=== PATIENT | male | born 1955 | race Caucasian/White ===

== ENCOUNTER 2019-02-05 06:18 | Inpatient (IN) | payer OTHER ==
[2019-02-02 16:01] VITALS: BMI 30.2
[2019-02-05] MEDS ORDERED: HEPARIN NA (PORCINE) 5,000 UNITS/ML 1ML VIAL ONE (07:07)
[2019-02-05] MEDS ORDERED: BENZOIN TINCTURE SWABSTICK TP ONE ×2 (07:07→11:28)
[2019-02-05] MEDS ORDERED: THROMBIN (BOVINE) 5,000 UNIT VIAL TP ONE ×3 (07:08→10:05)
[2019-02-05] MEDS ORDERED: BUPIVACAINE HCL/PF 0.5% (5 MG/ML) 30 ML VIAL IJ ONE (07:49)
[2019-02-05] MEDS ORDERED: DEXAMETHASONE SOD PHOSPHATE/PF 10 MG/ML SDV ONE (07:49)
[2019-02-05] MEDS ORDERED: MIDAZOLAM HCL 2 MG/2 ML SINGLE DOSE VIAL ONE ×4 (07:50→12:58)
[2019-02-05] MEDS ORDERED: SUCCINYLCHOLINE CHLORIDE 200 MG/10 ML SYRINGE ONE (07:55)
[2019-02-05] MEDS ORDERED: VANCOMYCIN 1,000 MG VIAL (RESTRICTED TO ID ONLY) ONE ×2 (07:55→08:30)
[2019-02-05] MEDS ORDERED: ePHEDrine SULFATE 50 MG/1 ML AMPULE ONE (07:55)
[2019-02-05] MEDS ORDERED: ROCURONIUM BROMIDE 50 MG/5 ML SYRINGE ONE (07:55)
[2019-02-05] MEDS ORDERED: ceFAZolin SODIUM 1 GM VIAL ONE ×4 (07:55→19:54)
[2019-02-05] MEDS ORDERED: fentaNYL CITRATE 250 MCG/5 ML VIAL ONE ×3 (07:55→10:45)
[2019-02-05] MEDS ORDERED: PROPOFOL 20 ML ONE ×15 (07:55→10:41)
[2019-02-05] MEDS ORDERED: VANCOMYCIN 1,000 MG VIAL (RESTRICTED TO ID ONLY) IVPB ONE (08:15)
[2019-02-05] MEDS ORDERED: ceFAZolin SODIUM 1 GM VIAL IVPB ONE (08:30)
[2019-02-05] MEDS ORDERED: HYDROCORTISONE SOD SUCCINATE 2 ML ONE ×2 (08:30→08:34)
[2019-02-05] MEDS ORDERED: KETAMINE HCL 200 MG/20 ML VIAL ONE ×2 (10:03→10:43)
--- NOTE | 2019-02-05 11:47 | PN ---
Progress Note (short form) - Note Progress Note: 63M s/p C3-C4 anterior cervical discectomy and instrumented fusion POD #0. -Admit to ICU x 24 hrs. for airway observation; OK to discharge home or downgrade to floor & discharge home 02/06/2019 if airway stable. -Maintain head of bed 30-45 degrees. -Pain medication: per anaesthesia team; oral meds (oxycodone preferred), no TEACHING FELLOW ; NO NSAID's. -DVT PPx: -Mechanical only: CASIMIRO's, SCD's. -Post-op Ancef x 3 doses. -f/u AM labs. -Incentive spirometry. -PT/OT/Rehab, OOB. -WBAT B/L UE & LE. -f/u TOV (8 hours max). -Keep dressing clean & dry. -No heavy lifting (>5 lbs), bending or twisting x 6 months post op. -Start with soft diet; advance diet as tolerated. -B/L UE & LE NV checks. -Care per ICU & primary medical hospitalist teams. -Discharge planning: f/u [facility] [place] office 02/15/2019; call for appointment; . Srinivasa Baer MD (Orthopaedic Surgery).
[2019-02-05] MEDS ORDERED: ONDANSETRON 4 MG/2 ML VIAL IVPUSH PRN (11:51)
--- NOTE | 2019-02-05 11:51 | OP ---
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 SEVERITY OF ILLNESS: 4. Operation: C3-C4 ACDF Implants: Cage: RTI Tetrafuse Fortilink 11mm [id number] cage. Plate: Precision Spine Slimplicity 18mm. Screws: 4 x 4.0x12mm Post-Operative Diagnosis: Same as Pre-op Surgeon: Srinivasa Baer Lead Sewage Plant Operator: Jeffrey Baer Anesthesiologist/HAND INSPECTOR: Melissa Craven Anesthesia: General Specimens Removed: C3-C4 Disc Estimated Blood Loss (mls): 30 Fluid Volume Replaced (mls): 1,000 (Crystalloid) Operative Report Dictated: Yes
[2019-02-05] MEDS ORDERED: ALBUTEROL SO4 8 GM HFA INHALER IH PRN (12:00)
[2019-02-05] MEDS ORDERED: LACTATED RINGERS SOLUTION 1,000 ML IV SCH (12:00)
--- NOTE | 2019-02-05 12:28 | OP ---
DATE OF OPERATION: DATE OF DICTATION: 02/05/2019 SURGEON: Srinivasa Baer MD BUSINESS PROCESS ASSOCIATE: Jeffrey Baer MD PREOPERATIVE DIAGNOSIS: C3-4 disk prolapse with stenosis and cervical spondylogenic myelopathy. POSTOPERATIVE DIAGNOSIS: C3-4 disk prolapse with stenosis and cervical spondylogenic myelopathy. OPERATION PERFORMED: 1. C3-4 diskectomy. 2. Partial corpectomy C3 and partial corpectomy C4. 3. Insertion of cage C3-4. 4. Anterior arthrodesis C3-4. 5. Anterior plating C3-4. ANESTHESIA: General. ANTIBIOTICS GIVEN: 2 g Kefzol, 1 g vancomycin preoperative; 10 mg Decadron with a loading dose of steroid for his COPD. DESCRIPTION OF PROCEDURE: Patient correctly identified. Brought to the operating room. Cervical spine was prepped, draped in the routine manner with Betadine scrub solution, wiped off with alcohol, DuraPrep applied. A window drape applied. The preoperative motor evoked potentials as well as SSEP readings were taken. Once we were satisfied with the readings, which revealed poor numbers revealed in his lower extremities, place the patient in a neck extended position by placing a longitudinal bolster behind his scapulae. This gave excellent extension of his neck. Appropriate cleansing of the tissue combined with this new extension position brought about no change in the neuromonitoring findings. Imaging was available for intraoperative evaluation. Time-out was called. The indications for this operation were simply for C3-4, and one could easily make a case for C6-7 and C7-T1 to be attempted at the same time; however, because of his chronic obstructive airway disease and significant myelopathy, we elected to simply do the C3-4 level and at a later date we would do on the contralateral side of the approach to the neck, this one being on the right, the next one will be on the left to attend to the C5, C6-7, and C7-T1 levels, that is, if necessary. There is free CSF fluid around the cord at these 2 lateral levels. At the C3-4 level, there is complete blockage of the canal. Using a light microscope, the incision was made through an oblique incision proximal to the cricothyroid interval. This gave easily access to platysma, which was transected and then longitudinally the investing layer of fascia was opened to expose the plane between the viscera and vessels. With digital palpation, this plane was developed. The longus coli readily identified and dissected using unipolar Bovie off the C3-4 disk. The C3-4 disk was marked with an appropriate marker, that is, an 18-gauge needle and verified with lateral fluoroscopic x-ray. Once this had been performed, the annulus was transected off the bone and then the entire disk and fragmented disk scooped out of the disk space right down to the level of the posterior longitudinal ligament. Using a rough juan Midas Titi bur, the space was opened to receive a size 10 cage. This was a liberal opening of the interspace. [place] pins had been placed in the body of C3 and C4, distracted so that the actual C3-4 space was readily identified. Once the burring had been completed, we were right down to the actual theca itself. Kerrison enabled trimming of the posterior longitudinal ligament that were looking purely at the bulging theca itself. A size 10 Fortilink cage was inserted. This was filled with Ossio fill bone mineral matrix. A size 18 Precision cage was then inserted. Solid fixation achieved in C3 and C4. Lateral fluoroscopic x-ray and AP fluoroscopic x-ray revealed excellent positioning of the cages, plates. In order to facilitate the entire rectangular configuration, liberal partial corpectomies of C3 and C4 were performed this utilizing a combination of the bur as well as Kerrison upcuts. No complications. Patient maintains blood pressure and oxygen saturations well. The murphy will be the postoperative course because of his poor lung compliance and COPD and, hence, the need to keep the surgery as small as possible and attend to other areas in a similar way at a later date. MD ASHLEY Barajas/[id number]
[2019-02-05] MEDS ORDERED: ACETAMINOPHEN INJECTION 100 ML IVPB ONE ×2 (13:16→19:54)
[2019-02-05] MEDS ORDERED: ACETAMINOPHEN 1000 MG/100 ML VIAL (NON FORMULARY) IVPB ONE (13:30)
[2019-02-05] MEDS: ACETAMINOPHEN 1000 MG/100 ML VIAL (NON FORMULARY) IVPB SCH ×2 (13:30→20:33)
[2019-02-05] MEDS: CEFAZOLIN 2 GM/D5W 2 GM/50 ML ML IVPB SCH ×2 (13:54→19:59)
[2019-02-05] MEDS ORDERED: ceFAZolin 2 GRAM PREMIX BAG IVPB SCH (14:00)
[2019-02-05] MEDS ORDERED: MIDAZOLAM HCL 2 MG/2 ML SINGLE DOSE VIAL IVPUSH ONE (15:18)
--- NOTE | 2019-02-05 17:25 | HP ---
CHIEF COMPLAINT: left Arm weakness, unstable gait PCP: Dr Stock-[facility] HISTORY OF PRESENT ILLNESS: Pt is a pleasant 63 y/o M with a significant past medical history of spinal stenosis, HLD, COPD, CKD stage 3, Tourette's syndrome, diverticulosis, and BPH who presented to [facility] for spinal surgery. Pt endorses that he has been suffering from left upper extremity weakness as well as an unstable gait for a few years. Pt states he also feels a sharp sensation described as that of an "ice-pick" in both of his feet in addition to his left arm. Pt endorses taking oxycodone and gabapentin to mitigate his pain. Pt states he did not undergo surgery earlier due to conflicting medical opinions. Denies chest pain, headache , nausea/vomiting, bowel or bladder changes. PMH- as above SocialHx- Smokes 1/2 PPDx50 years, Denies alcohol or illicit drug use SurgHx- Previous elbow surgery, benign tumor removal of tongue, 2 hernia surgeries FamHx- Father NC, Mother CHF, DM NKDA HOME MEDICATIONS: Home Medications Medication Instructions Recorded Albuterol Sulfate Inhaler - 1 puff IH PRN 02/02/19 [Ventolin Hfa Inhaler -] Atorvastatin Ca [Lipitor] 10 mg PO HS 02/02/19 Fluticasone/Umeclidin/Vilanter 1 each IH DAILY 02/02/19 [Trelegy Ellipta 100-62.5-25] Oxycodone HCl 15 mg PO Q4H PRN 02/02/19 REVIEW OF SYSTEMS CONSTITUTIONAL: Absent: fever, chills, diaphoresis, generalized weakness, malaise, loss of appetite, weight change HEENT: Absent: rhinorrhea, nasal congestion, throat pain, throat swelling, difficulty swallowing, mouth swelling, ear pain, eye pain, visual changes CARDIOVASCULAR: Absent: chest pain, syncope, palpitations, irregular heart rate, lightheadedness , peripheral edema RESPIRATORY: PRESENT dyspnea with exertion GASTROINTESTINAL: Absent: abdominal pain, abdominal distension, nausea, vomiting, diarrhea, constipation, melena, hematochezia GENITOURINARY: Absent: dysuria, frequency, urgency, hesitancy, hematuria, flank pain, genital pain MUSCULOSKELETAL: Absent: myalgia, arthralgia, joint swelling, back pain, neck pain SKIN: Absent: rash, itching, pallor HEMATOLOGIC/IMMUNOLOGIC: Absent: easy bleeding, easy bruising, lymphadenopathy, frequent infections ENDOCRINE: Absent: unexplained weight gain, unexplained weight loss, heat intolerance, cold intolerance NEUROLOGIC: PRESENT focal weakness or paresthesias, unsteady gait PSYCHIATRIC: Absent: anxiety, depression, suicidal or homicidal ideation, hallucinations. PHYSICAL EXAMINATION Vital Signs - 24 hr 02/05/19 02/05/19 02/05/19 07:18 07:22 12:02 Temperature 98.2 F 97.8 F Pulse Rate 82 92 H Respiratory 20 19 Rate Blood Pressure 116/53 L 151/111 H O2 Sat by Pulse 94 L 100 Oximetry (%) 02/05/19 02/05/19 02/05/19 12:15 12:30 12:45 Temperature Pulse Rate 92 H 92 H 90 Respiratory 20 14 12 Rate Blood Pressure 167/96 162/105 H 166/94 O2 Sat by Pulse 94 L 96 92 L Oximetry (%) 02/05/19 02/05/19 02/05/19 13:00 13:15 13:30 Temperature Pulse Rate 88 90 92 H Respiratory 14 14 12 Rate Blood Pressure 149/100 149/96 148/88 O2 Sat by Pulse 94 L 98 97 Oximetry (%) 02/05/19 02/05/19 02/05/19 13:45 14:00 14:15 Temperature Pulse Rate 90 88 85 Respiratory 12 14 14 Rate Blood Pressure 149/88 152/98 120/88 O2 Sat by Pulse 97 98 98 Oximetry (%) 02/05/19 02/05/19 02/05/19 14:30 15:00 15:30 Temperature Pulse Rate 90 84 90 Respiratory 16 14 16 Rate Blood Pressure 144/90 146/86 150/80 O2 Sat by Pulse 95 95 97 Oximetry (%) GENERAL: NAD AAOX3 HEAD: Normal with no signs of trauma. EYES: EOMI Sclera Clear. EARS, NOSE, THROAT: MMM. NECK: Supple LUNGS: CTA b/l HEART: RRR S1S2 ABDOMEN: Soft,NDNT. UPPER EXTREMITIES: No CCE LOWER EXTREMITIES: No CCE. NEUROLOGICAL: Cranial nerves II-XII intact. SILT throughout. Strength 4/5 LUE. Biceps/Triceps 4/5. RUE 5/5. Lower extremities 5/5. Dorsiflexion/plantar flexion 5/5 bilaterally. PSYCHIATRIC: Cooperative. Good eye contact. Appropriate mood and affect. SKIN: Warm, dry, normal turgor, no rashes or lesions noted, normal capillary refill. Laboratory Results - last 24 hr 02/05/19 02/05/19 06:29 07:45 Blood Type A POSITIVE A POSITIVE Antibody Screen Negative ASSESSMENT/PLAN: Pt is a pleasant 63 y/o M with a significant past medical history of spinal stenosis, HLD, COPD, CKD stage 3, Tourette's syndrome, diverticulosis, and BPH who presented to [facility] for spinal surgery. 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 -Incentive Pan -Ancef x 3 doses -PT/OT -Advance diet as tolerated -Mechanical dvt ppx only -Oxycodone for analgesia. Avoid NSAIDS #HLD -Continue Atorvastatin 10 mg #COPD -Trilegy not formularly at hospital. Pharmacy consulted. Will substitute Anoro along with Asmanex. -Ventolin 1 Puff Q4H PRN #Tourette's syndrome/Anxiety -Paxil listed as part of medication in physical chart. Pt states no longer taking paxil due to side effects -Continue Klonopin 1 tab HS #FEN -No Standing Fluids -Monitor Electrolytes -Soft Diet #DVT ppx: SCDs #Dispo: -ICU. Possible d/c tomorrow. Visit type - Emergency Visit Emergency Visit: No - New Patient This patient is new to me today: Yes Date on this admission: 02/05/19 - Critical Care Critical Care patient: No ATTENDING PHYSICIAN STATEMENT I saw and evaluated the patient. I reviewed the resident's note and discussed the case with the resident. I agree with the resident's findings and plan as documented. SUBJECTIVE: OBJECTIVE: ASSESSMENT AND PLAN:
--- NOTE | 2019-02-05 18:16 | PN ---
Teaching Attending Note Name of Resident: Edson Kilpatrick ATTENDING PHYSICIAN STATEMENT I saw and evaluated the patient. I reviewed the resident's note and discussed the case with the resident. I agree with the resident's findings and plan as documented. SUBJECTIVE: CC: s/p cervical sx HPI : Tadeo 63 y/o man with h/o C3-4 disk herniation with resultant spinal stenosis, HL, COPD, and nicotine dependence who presented fro his C spine surgery. He is now in PACU after his procedure. His pre-Sx symptoms were weakness in MAL and gait abnormalities with numbness and tingling in his legs . now he feels some sore throat, but denies SOB or weakness, or CP . has no diarrhea or abd pain. smoked until last night . OBJECTIVE: NAD, awake, alert, cooperative and pleasant HEENT: MMM, oropharynx with bruises. anterior neck dressing. no facial droop. CV: RRR. Lungs: CTAB. Abd: soft, obese, NT, ND , NL BS Ext : No edema or erythema on LE or upper extremities Neuro: EOMI, no facial droop. nl facial sensation , tongue and uvula at mid line. strength RUE: shoulder shrug and abduction 5/5 , triceps and biceps 5/5. 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 nl hand opener verifier [employer]er [employer]. RLE: hip flexion 4/5. knee flexion and extension 5/5 . ankle dorsiflexion and plantar flexion 5/5 LLE: hip flexion 4/5. knee flexion and extension 5/5 . ankle dorsiflexion and plantar flexion 5/5 reflexes 2+ knee jerk b/l. biceps:2+ on R , 1+_ on L ASSESSMENT AND PLAN: Tadeo 63 y/o man with h/o C3-4 disk herniation with resultant spinal stenosis , HL, COPD, and nicotine dependence who presented fro his C spine surgery. He is now in PACU after his procedure. 1- s/p C3--4 discectomy and fusion : doing well . eating dinner - pain control with oxycodone - diet - out of bed with PT - SCDs - monitor neuro exam 2- h/o COPD: SAt O2 89-94% on RA. - monitor - Nebs - Inhalers - counseled about smoking 3- H/o HLP: - cont lipitor dispo : possible dc tomorrow
[2019-02-05] MEDS ORDERED: oxyCODONE HCL 5 MG TABLET ONE (18:19)
[2019-02-05] MEDS: oxyCODONE HCL 5 MG TABLET PO PRN (18:22)
--- NOTE | 2019-02-05 21:27 | CONSULT ---
Consultation: REQUESTING PROVIDER: CONSULT REQUEST: We have been asked to medically evaluate this patient for post- operative care. HISTORY OF PRESENT ILLNESS: 63yo smoking M with PMH COPD, HLD, hernia repairs, presenting s/p c3-c4 anterior cervical decompression with instrumentation today. Patient with adequate pain control, s/p 200 fentynl, ofirimev x2, 2g anceph x2, vancomycin, PO oxycodone at 6:20PM. Patient requesting his home Klonapin for sleep, slept earlier following versed dose. Passed his trial of void while in the PACU. Ate a full dinner and drank water. Patient without nausea, vomiting, pain, CP, SOB. Endorses mild throat tenderness. REVIEW OF SYSTEMS: CONSTITUTIONAL: Absent: fever, chills, diaphoresis, generalized weakness, malaise, loss of appetite, weight change HEENT: Absent: rhinorrhea, nasal congestion, throat pain, throat swelling, difficulty swallowing, mouth swelling, ear pain, eye pain, visual changes CARDIOVASCULAR: Absent: chest pain, syncope, palpitations, irregular heart rate, lightheadedness , peripheral edema RESPIRATORY: Absent: cough, shortness of breath, dyspnea with exertion, orthopnea, wheezing, stridor, hemoptysis GASTROINTESTINAL: Absent: abdominal pain, abdominal distension, nausea, vomiting, diarrhea, constipation, melena, hematochezia GENITOURINARY: Absent: dysuria, frequency, urgency, hesitancy, hematuria, flank pain, genital pain MUSCULOSKELETAL: Absent: myalgia, arthralgia, joint swelling, back pain, neck pain SKIN: Absent: rash, itching, pallor HEMATOLOGIC/IMMUNOLOGIC: Absent: easy bleeding, easy bruising, lymphadenopathy, frequent infections ENDOCRINE: Absent: unexplained weight gain, unexplained weight loss, heat intolerance, cold intolerance NEUROLOGIC: Absent: headache, focal weakness or paresthesias, dizziness, unsteady gait, seizure, mental status changes, bladder or bowel incontinence PSYCHIATRIC: Absent: anxiety, depression, suicidal or homicidal ideation, hallucinations. PHYSICAL EXAMINATION Vital Signs - 24 hr 02/05/19 02/05/19 02/05/19 07:18 07:22 12:02 Temperature 98.2 F 97.8 F Pulse Rate 82 92 H Respiratory 20 19 Rate Blood Pressure 116/53 L 151/111 H O2 Sat by Pulse 94 L 100 Oximetry (%) 02/05/19 02/05/19 02/05/19 12:15 12:30 12:45 Temperature Pulse Rate 92 H 92 H 90 Respiratory 20 14 12 Rate Blood Pressure 167/96 162/105 H 166/94 O2 Sat by Pulse 94 L 96 92 L Oximetry (%) 02/05/19 02/05/19 02/05/19 13:00 13:15 13:30 Temperature Pulse Rate 88 90 92 H Respiratory 14 14 12 Rate Blood Pressure 149/100 149/96 148/88 O2 Sat by Pulse 94 L 98 97 Oximetry (%) 02/05/19 02/05/19 02/05/19 13:45 14:00 14:15 Temperature Pulse Rate 90 88 85 Respiratory 12 14 14 Rate Blood Pressure 149/88 152/98 120/88 O2 Sat by Pulse 97 98 98 Oximetry (%) 02/05/19 02/05/19 02/05/19 14:30 15:00 15:30 Temperature Pulse Rate 90 84 90 Respiratory 16 14 16 Rate Blood Pressure 144/90 146/86 150/80 O2 Sat by Pulse 95 95 97 Oximetry (%) 02/05/19 02/05/19 02/05/19 16:30 17:30 18:30 Temperature Pulse Rate 84 82 82 Respiratory 14 14 20 Rate Blood Pressure 137/93 148/96 164/90 O2 Sat by Pulse 99 99 98 Oximetry (%) 02/05/19 02/05/19 19:30 20:30 Temperature Pulse Rate 90 90 Respiratory 18 20 Rate Blood Pressure 155/97 152/90 O2 Sat by Pulse 96 98 Oximetry (%) GENERAL: Pleasant, awake, alert, and fully oriented, in no acute distress. HEAD: Normal with no signs of trauma. EYES: Pupils equal, round and reactive to light, extraocular movements intact, sclera anicteric, conjunctiva clear. No lid lag. EARS, NOSE, THROAT: Ears normal, nares patent, oropharynx clear without exudates. Moist mucous membranes. NECK: In cervical collar, dressing C/D/I LUNGS: Breath sounds equal, clear to auscultation bilaterally. No wheezes, and no crackles. No accessory muscle use. HEART: Regular rate and rhythm, normal S1 and S2 without murmur, rub or gallop. ABDOMEN: Soft, nontender, not distended, normoactive bowel sounds, no guarding, no rebound, no masses. No hepatomegaly or splenomegaly. MUSCULOSKELETAL: Normal range of motion at all joints. No bony deformities or tenderness. No CVA tenderness. UPPER EXTREMITIES: 2+ pulses, warm, well-perfused. No cyanosis. No clubbing. Cap refill <2 seconds. No peripheral edema. LOWER EXTREMITIES: 2+ pulses, warm, well-perfused. No calf tenderness. No peripheral edema. NEUROLOGICAL: Cranial nerves II-XII intact. Normal speech. Normal sensation and strength. PSYCHIATRIC: Cooperative. Good eye contact. Appropriate mood and affect. SKIN: Warm, dry, normal turgor, no rashes or lesions noted. Laboratory Results - last 24 hr 02/05/19 02/05/19 06:29 07:45 Blood Type A POSITIVE A POSITIVE Antibody Screen Negative Active Medications Generic Name Dose Route Start Last Admin Trade Name Freq PRN Reason Stop Dose Admin Acetaminophen 1,000 mg 02/05/19 15:30 02/05/19 20:33 Ofirmev Injection - IVPB 02/06/19 09:31 1,000 mg Q6H ROSA Administration Albuterol Sulfate 1 puff 02/05/19 12:00 Ventolin Hfa Inhaler - IH Q4H PRN SHORTNESS OF BREATH Atorvastatin Calcium 10 mg 02/05/19 22:00 Lipitor - PO HS ROSA Clonazepam 1 mg 02/05/19 22:00 Klonopin - PO HS ROSA Cefazolin Sodium/Dextrose 2 gm in 50 mls @ 100 mls/hr 02/05/19 14:00 19:59 Ancef 2 Gm Premixed Ivpb - IVPB 02/06/19 02:29 100 mls/hr Q6H ROSA Administration Mometasone Furoate 1 puff 02/06/19 22:00 Asmanex 220mcg - IH HS ROSA Ondansetron HCl 4 mg 02/05/19 11:51 Zofran Injection IVPUSH Q6H PRN NAUSEA AND/OR VOMITING Oxycodone HCl 15 mg 02/05/19 11:51 02/05/19 18:22 Roxicodone - PO 15 mg Q4H PRN Administration PAIN 7-10 Umeclidinium/Vilanterol 1 puff 02/06/19 10:00 Anoro Ellipta 62.5-25 Mcg Inh IH DAILY ROSA ASSESSMENT/PLAN: 63yo M smoker PMH COPD, HLD presenting s/p uncomplicated C3-C4 anterior cervical decompression with instrumentation. Progressing appropriately postoperatively, passed TOV, tolerating PO, pain well controlled. #Neuro - Pain control postoperatively is primary concern - q4h neuro checks - Maintain C-collar to avoid surgical site disruption - Maintain head of bed 30-45 degrees - PRN Tylenol for mild to moderate pain - PRN 15mg oxycodone q4hr for severe pain (7-10) - Home 1mg PO Klonopin qhs #CV - ABDOULAYE, baseline HLD - Continue home atorvastatin 10mg #Pulm - ABDOULAYE, baseline COPD, satting well on RA, home medication no on formulary , substitute below - Maintain O2 sat 89-94% - Incentive Spirometer - Continue Albuterol PRN - Continue Asmanex 220 mg qhs - Continue Anoro Ellipta 62.5-25mg daily #Renal - ABDOULAYE - Continue maintenance fluids - Encourage continued PO fluid intake - Trend and replete electrolytes as necessary #GI - ABDOULAYE - Trend CMP - Zofran PRN for nausea/vomiting - Soft diet, advance as tolerated #ID - ABDOULAYE - s/p 2x anceph, 1x vancomycin - Continue Anceph 2mg q6hr for one more dose (3 total) - Trend CBC, vitals #PPX - SCDs - OOB #Dispo - We will continue to follow the patient. Thank you for this consultative opportunity. Visit type - Emergency Visit Emergency Visit: No - New Patient This patient is new to me today: Yes Date on this admission: 02/05/19 - Critical Care Critical Care patient: Yes Total Critical Care Time (in minutes): 36 Critical Care Statement: The care of this patient involved high complexity decision making to prevent further life threatening deterioration of the patient 's condition and/or to evaluate & treat vital organ system(s) failure or risk of failure. ATTENDING PHYSICIAN STATEMENT I saw and evaluated the patient. I reviewed the resident's note and discussed the case with the resident. I agree with the resident's findings and plan as documented. SUBJECTIVE: OBJECTIVE: ASSESSMENT AND PLAN:
[2019-02-05] MEDS: clonazePAM 0.5 MG TABLET PO SCH ×3 (21:34→23:03)
[2019-02-05] MEDS ORDERED: ATORVASTATIN CA 10 MG TABLET (FP) PO SCH (22:00)
[2019-02-05] MEDS ORDERED: clonazePAM 0.5 MG TABLET PO SCH (22:00)
[2019-02-05] MEDS ORDERED: PATIENT'S OWN MEDICATION (NON-FORMULARY) (Clonazepam [Klonopin] 1 MG) PO SCH (22:00)
[2019-02-05] MEDS ORDERED: PANTOPRAZOLE 40 MG TABLET (FP) PO ONE (22:46)
[2019-02-06] MEDS ORDERED: FAMOTIDINE 20 MG TABLET PO ONE (00:03)
[2019-02-06] MEDS: CEFAZOLIN 2 GM/D5W 2 GM/50 ML ML IVPB SCH (01:10)
[2019-02-06] MEDS: ACETAMINOPHEN 1000 MG/100 ML VIAL (NON FORMULARY) IVPB SCH ×2 (04:00→10:34)
[2019-02-06] MEDS ORDERED: BENZOCAINE/MENTH/CETYLPYRD CL 1 EACH LOZENGE MM PRN (04:08)
[2019-02-06 07:46] LABS: BASO % 0.1 % (0-2.0); EOS % 0.1 % (0-4.5); HEMATOCRIT 38.3 % (35.4-49); HEMOGLOBIN 12.8 GM/dL (11.7-16.9); LYMPH % 6.3 % (8-40); MCH 30.5 pg (25.7-33.7); MCHC 33.3 g/dl (32.0-35.9); MEAN CELL VOLUME 91.6 fl (80-96); MEAN PLT VOLUME 8.4 fl (7.5-11.1); MONO % 7.4 % (3.8-10.2); NEUT % 86.1 % (42.8-82.8); PLATELET COUNT 267 K/MM3 (134-434); RBC 4.19 M/mm3 (4.00-5.60); RDW 13.1 % (11.9-15.9); WHITE BLOOD COUNT 16.9 K/mm3 (4.0-10.0)
[2019-02-06 08:30] LABS: BILIRUBIN,TOTAL 0.3 mg/dL (0.2-1); BLOOD UREA NITROGEN 17.4 mg/dL (7-18); CALCIUM 8.6 mg/dL (8.5-10.1); CREATININE 1.2 mg/dL (0.55-1.3); POTASSIUM 4.7 mmol/L (3.5-5.1); TOT PROT 6.4 g/dl (6.4-8.2)
[2019-02-06] MEDS ORDERED: UMECLIDINIUM/VILANTEROL (ANORO) 62.5/25 MCG INHALER IH SCH (10:00)
--- NOTE | 2019-02-06 10:36 | EKG ---
Test Reason : Blood Pressure : / mmHG Vent. Rate : 092 BPM Atrial Rate : 092 BPM P-R Int : 216 ms QRS Dur : 088 ms QT Int : 356 ms P-R-T Axes : 036 035 026 degrees QTc Int : 440 ms POOR DATA QUALITY, INTERPRETATION MAY BE ADVERSELY AFFECTED SINUS RHYTHM WITH 1ST DEGREE A-V BLOCK OTHERWISE NORMAL ECG Confirmed by MD DANIEL, CHAU ([id number]) on 02/06/2019 10:35:54 AM Referred By: Srinivasa Baer Confirmed By:CHAU SANCHEZ MD
--- NOTE | 2019-02-06 11:21 | PN ---
Teaching Attending Note Name of Resident: Brain Rodgers ATTENDING PHYSICIAN STATEMENT I saw and evaluated the patient. I reviewed the resident's note and discussed the case with the resident. I agree with the resident's findings and plan as documented. SUBJECTIVE: Patient seen and examined in the ICU. Feels overall better. Some post-op pain but improving. No CP or SOB. Intake & Output 02/03/19 02/04/19 02/05/19 02/06/19 23:59 23:59 23:59 23:59 Intake Total 2600 100 Output Total 2080 2000 Balance 520 -1900 Last Vital Signs Temp Pulse Resp BP Pulse Ox 98.4 F 73 17 132/93 100 02/06/19 06:00 02/06/19 08:00 02/06/19 06:00 02/06/19 08:00 02/06/19 09:00 Active Medications Albuterol Sulfate (Ventolin Hfa Inhaler -) 1 puff IH Q4H PRN PRN Reason: SHORTNESS OF BREATH Atorvastatin Calcium (Lipitor -) 10 mg PO HS [facility] Last Admin: 02/05/19 21:34 Dose: 10 mg Benzocaine/Menthol (Cepacol Lozenge -) 1 each MM PRN PRN PRN Reason: SORE THROAT Last Admin: 02/06/19 04:24 Dose: 1 each Clonazepam (Klonopin -) 1 mg PO HS [facility] Last Admin: 02/05/19 23:03 Dose: 0.5 mg Mometasone Furoate (Asmanex 220mcg -) 1 puff IH HS [facility] Ondansetron HCl (Zofran Injection) 4 mg IVPUSH Q6H PRN PRN Reason: NAUSEA AND/OR VOMITING Last Admin: 02/05/19 23:31 Dose: 4 mg Oxycodone HCl (Roxicodone -) 15 mg PO Q4H PRN PRN Reason: PAIN 7-10 Last Admin: 02/05/19 18:22 Dose: 15 mg Umeclidinium/Vilanterol (Anoro Ellipta 62.5-25 Mcg Inh) 1 puff IH DAILY [facility] Last Admin: 02/06/19 10:33 Dose: 1 puff GENERAL: Awake, alert, and oriented, in no acute distress. HEAD: Normal with no signs of trauma. EYES: sclera anicteric, conjunctiva clear. No lid lag. EARS, NOSE, THROAT: Ears normal, nares patent, oropharynx clear without exudates. Moist mucous membranes. NECK: dressing C/D/I LUNGS: Breath sounds equal, clear to auscultation bilaterally. No wheezes, and no crackles. No accessory muscle use. HEART: Regular rate and rhythm, normal S1 and S2 without murmur, rub or gallop. ABDOMEN: Soft, nontender, not distended, normoactive bowel sounds, no guarding, no rebound, no masses. No hepatomegaly or splenomegaly. MUSCULOSKELETAL: Normal range of motion at all joints. No bony deformities or tenderness. No CVA tenderness. UPPER EXTREMITIES: 2+ pulses, warm, well-perfused. No cyanosis. No clubbing. Cap refill <2 seconds. No peripheral edema. LOWER EXTREMITIES: 2+ pulses, warm, well-perfused. No calf tenderness. No peripheral edema. NEUROLOGICAL: Non-focal PSYCHIATRIC: Cooperative. Good eye contact. Appropriate mood and affect. SKIN: Warm, dry, normal turgor, no rashes or lesions noted. Laboratory Results - last 24 hr 02/06/19 02/06/19 06:59 06:59 WBC 16.9 H RBC 4.19 Hgb 12.8 Hct 38.3 MCV 91.6 MCH 30.5 MCHC 33.3 RDW 13.1 Plt Count 267 MPV 8.4 Absolute Neuts (auto) 14.5 H Neutrophils % 86.1 H Lymphocytes % 6.3 L Monocytes % 7.4 Eosinophils % 0.1 Basophils % 0.1 Nucleated RBC % 0 Sodium 137 Potassium 4.7 Chloride 104 Carbon Dioxide 29 Anion Gap 4 L BUN 17.4 Creatinine 1.2 Est GFR (CKD-EPI)AfAm 73.11 Est GFR (CKD-EPI)NonAf 63.08 Random Glucose 125 H Calcium 8.6 Total Bilirubin 0.3 AST 17 ALT 20 Alkaline Phosphatase 84 Total Protein 6.4 Albumin 3.0 L ASSESSMENT/PLAN: POD #1: C3-C4 anterior cervical decompression with instrumentation COPD HLD Pain control Incentive Spirometry VTE prophylaxis DC planning Dr Watkins
--- NOTE | 2019-02-06 12:04 | PATH ---
Surgical Pathology Report Patient Name: KEVIN MENDOZA [facility]. Rec. 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 Specimen(s) Received DISC, C3-C4 Clinical History Cervical disc disorder C3-C4 Final Diagnosis DISC, C3-C4, DISCECTOMY: BENIGN INTERVERTEBRAL DISC TISSUE AND BONE. Electronically Signed Ursula Killian M.D. Gross Description Received in formalin labeled "C3-C4 disc," is a 4.5 x 4.0 x 0.4 cm aggregate of lerner fragments of fibrocartilaginous tissue. A medical billing representative portion is submitted in one cassette. DL/02/05/2019 saudi/02/05/2019
--- NOTE | 2019-02-06 12:26 | PN ---
Physical Exam: SUBJECTIVE: Patient seen and examined by the bedside. He has been eating solid food, passing gas and burping, but has not had a BM yet. Pain is under control. OBJECTIVE: Vital Signs Period Temp Pulse Resp BP Sys/[place]land Pulse Ox Last 24 Hr 98.3 F-98.9 F 67-92 12-21 115-166/67-105 92-100 GENERAL: AOx3 HEAD: Normal with no signs of trauma. EYES: PERRL, EOMI ENT: Ears, nares patent, oropharynx clear without exudates, moist mucous membranes. NECK: Dressing in place LUNGS: Clear B/L HEART: RRR, no murmur, rub or gallop. ABDOMEN: Soft, nontender, nondistended EXTREMITIES: 2+ pulses, warm, well-perfused, no edema. NEUROLOGICAL: Motor 5/5, sensations intact PSYCH: Normal mood, normal affect. SKIN: Warm, dry, normal turgor, no rashes or lesions noted Laboratory Results - last 24 hr 02/06/19 02/06/19 06:59 06:59 WBC 16.9 H RBC 4.19 Hgb 12.8 Hct 38.3 MCV 91.6 MCH 30.5 MCHC 33.3 RDW 13.1 Plt Count 267 MPV 8.4 Absolute Neuts (auto) 14.5 H Neutrophils % 86.1 H Lymphocytes % 6.3 L Monocytes % 7.4 Eosinophils % 0.1 Basophils % 0.1 Nucleated RBC % 0 Sodium 137 Potassium 4.7 Chloride 104 Carbon Dioxide 29 Anion Gap 4 L BUN 17.4 Creatinine 1.2 Est GFR (CKD-EPI)AfAm 73.11 Est GFR (CKD-EPI)NonAf 63.08 Random Glucose 125 H Calcium 8.6 Total Bilirubin 0.3 AST 17 ALT 20 Alkaline Phosphatase 84 Total Protein 6.4 Albumin 3.0 L Active Medications Generic Name Dose Route Start Last Admin Trade Name Freq PRN Reason Stop Dose Admin Albuterol Sulfate 1 puff 02/05/19 12:00 Ventolin Hfa Inhaler - IH Q4H PRN SHORTNESS OF BREATH Atorvastatin Calcium 10 mg 02/05/19 22:00 02/05/19 21:34 Lipitor - PO 10 mg HS [facility] Administration Benzocaine/Menthol 1 each 02/06/19 04:08 02/06/19 04:24 Cepacol Lozenge - MM 1 each PRN PRN Administration SORE THROAT Clonazepam 1 mg 02/05/19 22:00 02/05/19 23:03 Klonopin - PO 0.5 mg HS [facility] Administration Mometasone Furoate 1 puff 02/06/19 22:00 Asmanex 220mcg - IH HS [facility] Ondansetron HCl 4 mg 02/05/19 11:51 02/05/19 23:31 Zofran Injection IVPUSH 4 mg Q6H PRN Administration NAUSEA AND/OR VOMITING Oxycodone HCl 15 mg 02/05/19 11:51 02/05/19 18:22 Roxicodone - PO 15 mg Q4H PRN Administration PAIN 7-10 Umeclidinium/Vilanterol 1 puff 02/06/19 10:00 02/06/19 10:33 Anoro Ellipta 62.5-25 Mcg Inh IH 1 puff DAILY [facility] Administration ASSESSMENT/PLAN: 63M with PMH of COPD, HLD s/p C3-C4 anterior cervical decompression with instrumentation, POD #1. #Neuro - q4h neuro checks - Maintain C-collar to avoid surgical site disruption - Maintain head of bed 30-45 degrees - PRN Tylenol for mild to moderate pain - PRN 15mg oxycodone q4hr for severe pain (7-10) - Home 1mg PO Klonopin qhs #CV - Hx of HLD, continue home atorvastatin 10mg #Pulm - Hx of COPD, continue Albuterol PRN, Asmanex 220 mg qhs, Anoro Ellipta 62.5- 25mg daily - Maintain O2 sat 89-94% - Incentive Spirometer #GI - Trend CMP - Zofran PRN for nausea/vomiting #ID - s/p 2x anceph, 1x vancomycin - Continue Anceph 2mg q6hr for one more dose (3 total) - Trend CBC, vitals #PPX - SCDs #Dispo - Ready for D/C today ATTENDING PHYSICIAN STATEMENT I saw and evaluated the patient. I reviewed the resident's note and discussed the case with the resident. I agree with the resident's findings and plan as documented. SUBJECTIVE: OBJECTIVE: ASSESSMENT AND PLAN:
[2019-02-06] MEDS: oxyCODONE HCL 5 MG TABLET PO PRN (12:57)
--- NOTE | 2019-02-06 14:48 | PN ---
Teaching Attending Note Name of Resident: Fior Woodruff ATTENDING PHYSICIAN STATEMENT I saw and evaluated the patient. I reviewed the resident's note and discussed the case with the resident. I agree with the resident's findings and plan as documented. SUBJECTIVE: no fever or chills. No IRVIN, no pain in neck . sore throat. passed gas . swallowing good OBJECTIVE: NAD, awake, alert, cooperative and pleasant oropharynx with bruises but no edema CV: RRR. Lungs: CTAB. Abd: soft, obese, NT, ND , NL BS Ext : No edema or erythema on LE or upper extremities Neuro: EOMI, no facial droop. nl facial sensation , tongue and uvula at mid line. strength RUE: shoulder shrug and abduction 5/5 , triceps and biceps 5/5. 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 knee flexion and extension 5/5 . ankle dorsiflexion and plantar flexion 5/5 LLE: hip flexion 4/5. knee flexion and extension 5/5 . ankle dorsiflexion and plantar flexion 5/5 reflexes 2+ knee jerk b/l. biceps:1+ on R , 0 on L ASSESSMENT AND PLAN: Pleasant 63 y/o man with h/o C3-4 disk herniation with resultant spinal stenosis , HL, COPD, and nicotine dependence who presented fro his C spine surgery. He is now in PACU after his procedure. 1- s/p C3--4 discectomy and fusion : doing well. - pain control with oxycodone . he has it at home -collar 3-4 hour a day d/w Dr. Baer - dressing to remain dry x 1 week then can cahnge to dry dressing f/u with ortho 2- h/o COPD: cont inhalers at home 3- H/o HLP: - cont lipitor DC home
--- NOTE | 2019-02-06 15:06 | DS ---
Physical Exam: SUBJECTIVE: Patient seen and examined. S/p cervical spine surgery. Pt is doing well, no c/o or issues overnight. Pt afebrile, asymptomatic without any further problems. Pt reports passing gas and ambulating well. Denies f/c/n/v/d/sob/ chest pain/ numbness or tingling. OBJECTIVE: Vital Signs Period Temp Pulse Resp BP Sys/[place] Pulse Ox Last 24 Hr 98.3 F-98.9 F 67-91 14-21 115-164/67-100 96-100 PHYSICAL EXAM GENERAL: The patient is awake, alert, and fully oriented, in no acute distress. EYES: PERRL, extraocular movements intact, ENT: oropharynx clear without exudates, moist mucous membranes, Mild erythema in the back of the throat NECK: Supple, Range of motion limited due to surgical site. Surgery was done with an anterior approach. Dressing in place. LUNGS: Breath sounds equal, clear to auscultation bilaterally, no wheezes, no crackles, no accessory muscle use. HEART: Regular rate and rhythm, S1, S2 without murmur, rub or gallop. ABDOMEN: Soft, nontender, nondistended, normoactive bowel sounds, no guarding, no rebound, no hepatosplenomegaly, no masses. EXTREMITIES: 2+ pulses, warm, well-perfused, no edema. NEUROLOGICAL: Cranial nerves II through XII grossly intact. Strength 5/5 UE and LE, Sensation 5/5 UE and LE SKIN: Warm, dry, normal turgor, no rashes or lesions noted. LABS Laboratory Results - last 24 hr CBC,CMP WBC 16.9 K/mm3 (4.0-10.0) H 02/06/19 06:59 RBC 4.19 M/mm3 (4.00-5.60) 02/06/19 06:59 Hgb 12.8 GM/dL (11.7-16.9) 02/06/19 06:59 Hct 38.3 % (35.4-49) 02/06/19 06:59 MCV 91.6 fl (80-96) 02/06/19 06:59 MCH 30.5 pg (25.7-33.7) 02/06/19 06:59 MCHC 33.3 g/dl (32.0-35.9) 02/06/19 06:59 RDW 13.1 % (11.9-15.9) 02/06/19 06:59 Plt Count 267 K/MM3 (134-434) 02/06/19 06:59 MPV 8.4 fl (7.5-11.1) 02/06/19 06:59 Absolute Neuts (auto) 14.5 K/mm3 (1.5-8.0) H 02/06/19 06:59 Neutrophils % 86.1 % (42.8-82.8) H 02/06/19 06:59 Lymphocytes % 6.3 % (8-40) L 02/06/19 06:59 Monocytes % 7.4 % (3.8-10.2) 02/06/19 06:59 Eosinophils % 0.1 % (0-4.5) 02/06/19 06:59 Basophils % 0.1 % (0-2.0) 02/06/19 06:59 Nucleated RBC % 0 % (0-0) 02/06/19 06:59 Sodium 137 mmol/L (136-145) 02/06/19 06:59 Potassium 4.7 mmol/L (3.5-5.1) 02/06/19 06:59 Chloride 104 mmol/L (98-107) 02/06/19 06:59 Carbon Dioxide 29 mmol/L (21-32) 02/06/19 06:59 Anion Gap 4 MMOL/L (8-16) L 02/06/19 06:59 BUN 17.4 mg/dL (7-18) 02/06/19 06:59 Creatinine 1.2 mg/dL (0.55-1.3) 02/06/19 06:59 Est GFR (CKD-EPI)AfAm 73.11 02/06/19 06:59 Est GFR (CKD-EPI)NonAf 63.08 02/06/19 06:59 Random Glucose 125 mg/dL (74-106) H 02/06/19 06:59 Calcium 8.6 mg/dL (8.5-10.1) 02/06/19 06:59 Total Bilirubin 0.3 mg/dL (0.2-1) 02/06/19 06:59 AST 17 U/L (15-37) 02/06/19 06:59 ALT 20 U/L (13-61) 02/06/19 06:59 Alkaline Phosphatase 84 U/L (45-117) 02/06/19 06:59 Total Protein 6.4 g/dl (6.4-8.2) 02/06/19 06:59 Albumin 3.0 g/dl (3.4-5.0) L 02/06/19 06:59 Current Medications Albuterol Sulfate (Ventolin Hfa Inhaler -) 1 puff IH Q4H PRN PRN Reason: SHORTNESS OF BREATH Atorvastatin Calcium (Lipitor -) 10 mg PO HS [facility] Last Admin: 02/05/19 21:34 Dose: 10 mg Benzocaine/Menthol (Cepacol Lozenge -) 1 each MM PRN PRN PRN Reason: SORE THROAT Last Admin: 02/06/19 04:24 Dose: 1 each Clonazepam (Klonopin -) 1 mg PO HS [facility] Last Admin: 02/05/19 23:03 Dose: 0.5 mg Mometasone Furoate (Asmanex 220mcg -) 1 puff IH [facility] Ondansetron HCl (Zofran Injection) 4 mg IVPUSH Q6H PRN PRN Reason: NAUSEA AND/OR VOMITING Last Admin: 02/05/19 23:31 Dose: 4 mg Oxycodone HCl (Roxicodone -) 15 mg PO Q4H PRN PRN Reason: PAIN 7-10 Last Admin: 02/06/19 12:57 Dose: 15 mg Umeclidinium/Vilanterol (Anoro Ellipta 62.5-25 Mcg Inh) 1 puff IH DAILY [facility] Last Admin: 02/06/19 10:33 Dose: 1 puff Home Medications Medication Instructions Recorded Albuterol Sulfate Inhaler - 1 puff IH PRN 02/02/19 [Ventolin HFA Inhaler -] Atorvastatin Ca [Lipitor] 10 mg PO HS 02/02/19 Fluticasone/Umeclidin/Vilanter 1 each IH DAILY 02/02/19 [Trelegy Ellipta 100-62.5-25] Oxycodone HCl 15 mg PO Q4H PRN 02/02/19 Clonazepam [Klonopin] 1 mg PO HS 02/05/19 HOSPITAL COURSE: Date of Admission:02/05/19 63 y/o M, w/ pmh of spinal stenosis, HLD, COPD, CKD stage 3, Tourette's syndrome , diverticulosis, and BPH presented to the hospital for an elective spine surgery under the care of Dr. Baer. Pt underwent a C3-C4 anterior cervical discectomy and instrumented fusion and was POD1. Pt was monitored overnight in the ICU and had a stable overnight ICU course. Pt was given ancef 3 doses for ppx s/p surgery, mechanical DVT ppx, oxycodone for pain management and underwent PT exercise and clearance for discharge. Pt post op course was unremarkable, he passed gas, ambulated well and was discharged home on his home meds. EKG: sinus rhythm w/ 1st degree block S/p surgery C-spine X ray: c-spine reveals anterior fusion at c3-c4 w/ a disc space replacement. Straightening w/ degenerative changes and some vertebra wedging. there is right paraspinal and prevertebral soft tissue air. 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 Avoid NSAIDS #HLD -Continue Atorvastatin 10 mg #COPD -Trilegy not formularly at hospital. Pharmacy consulted. Will substitute Anoro along with Asmanex. -Ventolin 1 Puff Q4H PRN #Tourette's syndrome/Anxiety -Paxil listed as part of medication in physical chart. Pt states no longer taking paxil due to side effects -Continue Klonopin 1 tab HS Date of Discharge: 02/06/19 Minutes to complete discharge: 35 Discharge Summary Problems reviewed: Yes Reason For Visit: CERVICAL DISC DISORDER AT C6-C7 LEVEL WITH MYELOPA Condition: Improved - Instructions Diet, Activity, Other Instructions: You were admitted to the hospital for spine surgery Please follow up with Dr. Srinivasa Baer. call his office and make sure your appointment is scheduled ([phone]) please follow up with your PCP within one week If you experience pain in your neck, please take over the counter pain medications or the oxycodone that you take at home. Please keep the dressing dry for one week- use dry gauze to change the dressing Please keep the collar on for at least 4-5 hours a day consistently Return to the emergency room, if you experience any worsening of symptoms including unbearable pain, shortness of breath, chest pain, nausea, vomiting, numbness or tingling of your hands or feet, or any other symptoms. Referrals: Saad Stock MD [Non Staff, Medical] - 1 Week Srinivasa Baer MD [Staff Physician] - 1 Week Disposition: HOME - Home Medications Comprehensive Discharge Medication List: Ambulatory Orders Albuterol Sulfate Inhaler - [Ventolin HFA Inhaler -] 1 puff IH PRN 02/02/19 Atorvastatin Ca [Lipitor] 10 mg PO HS 02/02/19 Fluticasone/Umeclidin/Vilanter [Trelegy Ellipta 100-62.5-25] 1 each IH DAILY Oxycodone HCl 15 mg PO Q4H PRN 02/02/19 Clonazepam [Klonopin] 1 mg PO HS 02/05/19 This patient is new to me today: Yes Date on this admission: 02/06/19 Emergency Visit: Yes ED Registration Date: 02/05/19 Care time: The patient presented to the Emergency Department on the above date and was hospitalized for further evaluation of their emergent condition. Critical Care patient: No - Discharge Referral Referred to [facility] No ATTENDING PHYSICIAN STATEMENT I saw and evaluated the patient. I reviewed the resident's note and discussed the case with the resident. I agree with the resident's findings and plan as documented. SUBJECTIVE: OBJECTIVE: ASSESSMENT AND PLAN:
[2019-02-06 17:18] VITALS: BP 136/84; PULSE 74; TEMP 98.6
[2019-02-06] MEDS ORDERED: MOMETASONE FUROATE 220 MCG/IH INHALER IH SCH (22:00)
== END 2019-02-06 18:57 | disposition home or self-care (01) | DRG 472 ==
LOC: JSAMEDAYSX 06:18 → JICU 20:58
PROVIDERS: ADMIT Orthopaedic Surgery Orthopaedic Surgery of the Spine; ATTEND Internal Medicine
PROC: 0RB30ZZ Excision of Cervical Vertebral Disc, Open Approach (ICD-10-PCS; 2019-02-05)
PROC: B01BZZZ Fluoroscopy of Spinal Cord (ICD-10-PCS; 2019-02-05)
PROC: 0RG10A0 Fusion of Cervical Vertebral Joint with Interbody Fusion Device, Anterior Approach, Anterior Column, Open Approach (ICD-10-PCS; principal; 2019-02-05 09:49)
DX: M50.11 Cervical disc disorder with radiculopathy, high cervical region (principal); M50.01 Cervical disc disorder with myelopathy, high cervical region; M47.12 Other spondylosis with myelopathy, cervical region; M48.02 Spinal stenosis, cervical region; J44.9 Chronic obstructive pulmonary disease, unspecified; E78.5 Hyperlipidemia, unspecified; N40.0 Benign prostatic hyperplasia without lower urinary tract symptoms; K57.90 Diverticulosis of intestine, part unspecified, without perforation or abscess without bleeding; F95.2 Tourette's disorder; I12.9 Hypertensive chronic kidney disease with stage 1 through stage 4 chronic kidney disease, or unspecified chronic kidney disease; N18.3 Chronic kidney disease, stage 3 (moderate); F41.9 Anxiety disorder, unspecified
CPT/HCPCS: 36415; 72050-TC-FY; 76000-TC-FY; 80053; 85025; 86850; 86900; 86901; 88304-TC; 93005; 93010; 94760; 97116-GP; 97162-GP; J0131; J1644

== ENCOUNTER 2019-02-08 13:32 | Inpatient (IN) | payer OTHER ==
--- NOTE | 2019-02-08 13:37 | PDOC ---
Rapid Medical Evaluation Time Seen by Provider: 02/08/19 13:36 Medical Evaluation: Allergies Allergy/AdvReac Type Severity Reaction Status Date / Time No Known Allergies Allergy Verified 02/05/19 07:24 02/08/19 13:36 I have performed a brief in-person evaluation of this patient. The patient presents with a chief complaint of: blood clot neck Pertinent physical exam findings:stable and in NAD, non-focal I have ordered the following:labs The patient will proceed to the ED for further evaluation.
[2019-02-08 14:34] LABS: EOS % 3.2 % (0-4.5); HEMATOCRIT 40.4 % (35.4-49); HEMOGLOBIN 13.6 GM/dL (11.7-16.9); MCH 30.5 pg (25.7-33.7); MCHC 33.7 g/dl (32.0-35.9); MEAN CELL VOLUME 90.6 fl (80-96); MEAN PLT VOLUME 8.2 fl (7.5-11.1); MONO % 11.2 % (3.8-10.2); NEUT % 74.6 % (42.8-82.8); PLATELET COUNT 288 K/MM3 (134-434); RBC 4.46 M/mm3 (4.00-5.60); RDW 13.1 % (11.9-15.9); WHITE BLOOD COUNT 11.8 K/mm3 (4.0-10.0)
--- NOTE | 2019-02-08 14:35 | PDOC ---
Documentation entered by Andrez Lim SCRIBE, acting as scribe for Nolberto Beth MD. Nolberto Beth MD: This documentation has been prepared by the [place], SCRIBE, under my direction and personally reviewed by me in its entirety. I confirm that the documentation accurately reflects all work, treatment, procedures, and medical decision making performed by me. History of Present Illness - General Chief Complaint: Pain Stated Complaint: BLOOD CLOT Time Seen by Provider: 02/08/19 13:36 History Source: Patient Exam Limitations: No Limitations - History of Present Illness Initial Comments: 02/08/19 15:13 CC: Neck Swelling. HPI: The patient is a 63 year old male, with a significant past medical history of spinal stenosis (s/p C3-C4 anterior cervical discectomy and instrumented fusion on 02/05), HLD, COPD/Emphysema, Stage III CKD, Tourette's syndrome, diverticulosis, and BPH, who presents to the emergency department with neck swelling. As per patient, he recently had C3-C4 anterior cervical discectomy and instrumented fusion on 4 days ago (02/05) and was discharged the following day. Patient was evaluated at [facility] and followed up with his surgeon Dr. Baer earlier today at which time he was advised to report to the ED for admission for surgery secondary to a hematoma this afternoon. Patient endorses voice changes since his surgery but, denies any changes in voice throughout the course of the past 4 days. He denies any recent fevers, chills, headache or dizziness. He denies any recent nausea, vomiting, diarrhea or constipation. He denies any recent chest pain or shortness of breath. He denies any recent dysuria, frequency, urgency or hematuria. Allergies: NKDA Primary Care Physician: Dr. Stock-[facility] Past History - Past Medical History Allergies/Adverse Reactions: Allergies Allergy/AdvReac Type Severity Reaction Status Date / Time No Known Allergies Allergy Verified 02/08/19 13:39 Home Medications: Ambulatory Orders Albuterol Sulfate Inhaler - [Ventolin HFA Inhaler -] 1 puff IH PRN 02/02/19 Atorvastatin Ca [Lipitor] 10 mg PO HS 02/02/19 Fluticasone/Umeclidin/Vilanter [Trelegy Ellipta 100-62.5-25] 1 each IH DAILY Oxycodone HCl 15 mg PO Q4H PRN 02/02/19 Clonazepam [Klonopin] 1 mg PO HS 02/05/19 Anemia: No Asthma: No Cancer: No Cardiac Disorders: No CVA: No COPD: Yes (emphysema) CHF: No Dementia: No Diabetes: No GI Disorders: No Disorders: No HTN: No Hypercholesterolemia: No Liver Disease: No Seizures: No Thyroid Disease: No - Surgical History Abdominal Surgery: Yes (hernia x4) Orthopedic Surgery: Yes (elbow; benign tumor from toe) - Psycho Social/Smoking Cessation Hx Smoking History: Never smoked Have you smoked in the past 12 months: Yes Number of Cigarettes Smoked Daily: 20 If you are a former smoker, when did you quit?: 2 weeks ago 2019 'Breaking Loose' booklet given: 02/05/19 Hx Alcohol Use: No (rarely) Drug/Substance Use Hx: No Substance Use Type: Alcohol Review of Systems - Review of Systems Able to Perform ROS?: Yes Comments:: 02/08/19 15:14 ROS: A complete review of 10 out of 10 review of systems is taken and is negative apart from what is previously mentioned below and in the HPI. *Physical Exam - Vital Signs Last Vital Signs Temp Pulse Resp BP Pulse Ox 98.2 F 99 H 18 149/100 95 02/08/19 13:33 02/08/19 13:33 02/08/19 13:33 02/08/19 13:33 02/08/19 13:33 - Physical Exam Comments: 02/08/19 15:14 Vitals: Triage vital signs reviewed General Appearance: No acute distress, well nourished, well developed Head: Atraumatic Nose: No nasal congestion Throat: Posterior oropharynx without erythema, mucous membranes moist Neck: +Soft tissue swelling to the anterior neck. No stridor. Chest Wall: Nontender Cardiac: Regular rate and rhythm, no murmurs, no rubs, no gallops Lungs: Clear to auscultation bilateral, good air movement bilaterally Extremities: Full range of motion to all extremities, no cyanosis, clubbing, or edema Skin: Warm and dry, no rashes or lesions, no rash, no petechiae Psych: Normal mood, normal affect 02/08/19 15:19 ED Treatment Course - LABORATORY CBC & Chemistry Diagram: 02/08/19 14:10 02/08/19 14:10 - RADIOLOGY Radiology Studies Ordered: Category Date Time Status NECK SOFT TISSUE [RAD] Stat Radiology 02/08/19 13:56 Ordered Medical Decision Making - Medical Decision Making 02/08/19 15:19 Well-appearing no apparent distress patient with neck hematoma status post spinal surgery Tuesday Sent to the emergency department plan is for patient to go back to the OR proximally 4 PM today Hemodynamically stable non-expanding hematoma airway intact no stridor no difficulty breathing Case discussed with Will observe overnightint to [facility] service Discharge - Discharge Information Problems reviewed: Yes Clinical Impression/Diagnosis: Hematoma of neck Qualifiers: Encounter type: initial encounter Qualified Code(s): S10.93XA - Contusion of unspecified part of neck, initial encounter Condition: Fair - Admission Yes - Follow up/Referral - Patient Discharge Instructions - Post Discharge Activity
[2019-02-08 14:50] LABS: INR 1.2 (0.83-1.09); PROTHROMBIN TIME (PATIENT) 14.2 SEC (9.7-13.0)
[2019-02-08 15:08] LABS: ALBUMIN 3.6 g/dl (3.4-5.0); BILIRUBIN,TOTAL 0.9 mg/dL (0.2-1); BLOOD UREA NITROGEN 18.6 mg/dL (7-18); CALCIUM 8.9 mg/dL (8.5-10.1); CREATININE 1.1 mg/dL (0.55-1.3); POTASSIUM 4.5 mmol/L (3.5-5.1); TOT PROT 7.2 g/dl (6.4-8.2)
[2019-02-08] MEDS ORDERED: fentaNYL CITRATE 250 MCG/5 ML VIAL ONE (15:08)
[2019-02-08] MEDS ORDERED: MIDAZOLAM HCL 2 MG/2 ML SINGLE DOSE VIAL ONE ×2 (15:09→16:41)
[2019-02-08] MEDS ORDERED: PROPOFOL 20 ML ONE ×2 (15:09)
[2019-02-08] MEDS ORDERED: ROCURONIUM BROMIDE 50 MG/5 ML SYRINGE ONE (15:09)
[2019-02-08] MEDS ORDERED: ONDANSETRON 4 MG/2 ML VIAL IVPUSH PRN ×2 (15:18→18:12)
[2019-02-08] MEDS ORDERED: ALBUTEROL SO4 0.083% IH SOL 2.5 MG/3 ML VIAL.NEB. NEB PRN (15:29)
[2019-02-08] MEDS ORDERED: LACTATED RINGERS SOLUTION 1,000 ML IV SCH ×2 (15:30→18:15)
--- NOTE | 2019-02-08 15:30 | PN ---
Progress Note (short form) - Note Progress Note: Hospitalist Medicine 63 y/o old M with a PMH spinal stenosis (s/p C3-C4 anterior cervical discectomy and instrumented fusion on 02/05), HLD, COPD/Emphysema, Stage III CKD, Tourette' s syndrome, diverticulosis, and BPH, who presented to the ED with neck swelling. Per pt, he recently had a C3-C4 anterior cervical discectomy and instrumented fusion 4 days ago (02/05) and was discharged the following day. Was monitored in the ICU. States he was evaluated at [facility] and was saw his surgeon, Dr. Baer earlier today. Was told he had a hematoma in his neck post-op and to come to the ED to get admitted for hematoma washout sx that will occur this afternoon. Pt endorses muffling of his voice during this time. Denies other sx; no SOB, IRVIN, fever, chills, chest pain or changes in urinary or bowel function. PMH- as above SurgHx- Previous elbow surgery, benign tumor removal of tongue, hernia repair, recent C3-C4 ACDF meds- as in chart, was recently d/c from facility allergies- NKDA FamHx- Father NC, Mother CHF, DM SocialHx- Smokes 1/2 PPDx50 years, Denies alcohol or illicit drug use Vitals 02/08/19 13:50 Temperature 99.1 F Pulse Rate [ 86 Left Radial] Respiratory 28 H Rate Blood Pressure 155/92 [Left Arm] O2 Sat by Pulse 93 L Oximetry (%) Oxygen Delivery Room Air Method Physical Exam general: pleasant. in NAD, however w/ muffled voice HEENT: NCAT, PERRLA. +difficulty visualizing uvula neck: +with gauze, edematous cardio: s1, s2 rrr. no r/m/g pulm: cta b/l. no accessory m usage abdomen: soft, obese, nontender, nondistended LE: 2+ pt pulses, no edema Laboratory Tests 02/08/19 02/08/19 02/08/19 14:10 14:10 14:10 WBC 11.8 H Hgb 13.6 Hct 40.4 Plt Count 288 PT with INR 14.20 H INR 1.20 H Sodium 136 Potassium 4.5 Chloride 101 BUN 18.6 H Creatinine 1.1 AST 36 ALT 32 Soft tissue neck XR: pending Assessment/plan 63 y/o old M with a PMH spinal stenosis (s/p C3-C4 anterior cervical discectomy and instrumented fusion on 02/05), HLD, COPD/Emphysema, Stage III CKD, Tourette' s syndrome, diverticulosis, and BPH, who presented to the ED with neck swelling. #Neck hematoma s/p recent C3-C4 ACDF sx -for OR today for hematoma washout, per Dr. Baer -post-op labs tomorrow -mechanical PPX/as recommended by sx -monitor drain output -IVF per sx -NPO until flatus -pain control per sx -watch for airway compromise -if needed, can start steroids if airway narrowing, benadryl, h2 matheus -rest orders per Dr. Baer and ICU team once out of surgery -ICU monitoring for airway compromise #COPD -currently not in exacerbation -c/w ventolin nebs PRN, anoro BID - home inhaler is not formulary -NC 02 as needed -goal sat 88-92% #Stage 3 CKD -stable; monitor #Tourette's -can c/w klonopin once cleared by sx #F/E/N IVF per sx/ICU team continue to follow lytes NPO until flatus #PPX post-op per sx #Dispo admit to ICU post-op <Riri Moreira - Last Filed: 02/08/19 17:57> - Note Progress Note: please note that this is a history and physical document that was fiiled in error under the title 'progress note.' For billing and patient care purposes please treat the entirety of this document as the history and physical for this admission. Thanks Seen and examined; discussed at length with resident team and indicated consultants. Independently reviewed all murphy historical, PE, diagnostic, and imaging findings. Agree with above documentation and assessment and plan as documented by resident aside from as supplemented below. Seen in preoperative area; noted voice changes. No compressive symptoms and hemodynamics remain stable. Pain controlled. Agree with HPI per resident note. 10 sys ROS done and negative aside from HPI VS labs imaging reviewed NAD, AAO resting in bed Trachea midline with overlying surgical dressing c/d/i with associated fullness underlying it but no acute bleeding. NC AT EOMI PERRLA Wheezes throughout bilaterally but present air motion, w/ sym exp HR wnl +s1/2 NT ND +BS CN2-12 wnl, no progressive neuro sx Normal mood, appropriate behavior A/P: Patient presents with postoperative neck hematoma and is heading to the OR for stat drainage and decompression. Likely that drain will be let in. Discussed at length with surgical services. Agree with problem list per resident note. Will monitor closely for bleeding postoperatively. Defer DVT px too their service as to not want to provoke bleeding. Full Code <Servando Alonso - Last Filed: 02/09/19 23:10>
[2019-02-08] MEDS ORDERED: DEXAMETHASONE SOD PHOSPHATE 4 MG/1 ML VIAL ONE (15:57)
[2019-02-08] MEDS ORDERED: KETAMINE HCL 200 MG/20 ML VIAL ONE (16:16)
--- NOTE | 2019-02-08 16:43 | PN ---
Progress Note (short form) - Note Progress Note: 63M s/p C3-C4 ACDF POD #3 now p/w fluid collection anterior cervical spine. -H&P reviewed. -Pt. seen & examined in pre-op holding area. -Risks, benefits, and alternatives of non-surgical VS surgical management discussed with & understood by patient. -Patient consented for I&D c-spine; witnessed. -Pt. admitted to medical hospitalist service. Jeffrey Baer MD (Orthopaedic Surgery).
[2019-02-08] MEDS ORDERED: ceFAZolin SODIUM 1 GM VIAL IVPB ONE (17:06)
[2019-02-08] MEDS ORDERED: TRANEXAMIC ACID 1000 MG/10 ML VIAL ONE (17:28)
[2019-02-08] MEDS ORDERED: GLYCOPYRROLATE 0.2 MG/1 ML VIAL ONE (17:38)
[2019-02-08] MEDS ORDERED: NEOSTIGMINE METHYLSULFATE 0.5 MG/1 ML - 10 ML MDV ONE (17:38)
[2019-02-08] MEDS ORDERED: BENZOIN TINCTURE SWABSTICK TP ONE (17:46)
[2019-02-08] MEDS ORDERED: METOPROLOL TARTRATE 5 MG/5 ML VIAL ONE ×2 (17:50→19:39)
[2019-02-08] MEDS ORDERED: BENZOIN/ALOE VERA/STORAX/TOLU 58 ML BOTTLE TP ONE (18:00)
[2019-02-08] MEDS ORDERED: PATIENT'S OWN MEDICATION (NON-FORMULARY) (Oxycodone Hcl [Oxycodone Hcl] 15 MG) PO PRN ×2 (18:11→21:55)
[2019-02-08] MEDS ORDERED: ALBUTEROL SO4 8 GM HFA INHALER IH SCH (18:15)
--- NOTE | 2019-02-08 18:19 | PN ---
Progress Note (short form) - Note Progress Note: 63M s/p C3-C4 anterior cervical discectomy and instrumented fusion POD #3 now s/ p I& anterior cervical spine with evacuation of retained hematoma POD #0. -Admit to ICU x 24 hrs. for airway observation; OK to discharge home or downgrade to floor & discharge home tomorrow afternoon 02/09/2019 if airway stable and drain has been removed. -Maintain head of bed 30-45 degrees. -Pain medication: per anaesthesia team; oral meds (oxycodone preferred), no SAMPLE COLLECTOR ; NO NSAID's. -f/u drain output. -DVT PPx: -Mechanical only: CASIMIRO's, SCD's. -Post-op Ancef x 3 doses. -f/u AM labs. -Incentive spirometry. -PT/OT/Rehab, OOB. -WBAT B/L UE & LE. -f/u TOV (8 hours max). -Keep dressing clean & dry. -No heavy lifting (>5 lbs), bending or twisting x 6 months post op. -Start with soft diet; advance diet as tolerated. -B/L UE & LE NV checks. -Care per ICU & primary medical hospitalist teams. -Discharge planning: f/u [facility] [place] office 02/15/2019; call for appointment; . Srinivasa Baer MD (Orthopaedic Surgery).
--- NOTE | 2019-02-08 18:23 | OP ---
Operative Note - Note: Operative Date: 02/08/19 Pre-Operative Diagnosis: Expanding hematoma anterior cervical spine. Operation: 1. I&D anterior cervical spine. 2. Inspection of fusion mass Findings: 100cc retained dark hematoma. Post-Operative Diagnosis: Same as Pre-op Surgeon: Jeffrey Baer Mexican Food Cook: Syl Glover Anesthesiologist/SAIL REPAIRER: Presley Springer Anesthesia: General Estimated Blood Loss (mls): 100 (Hematoma) Drains & Tubes with Location: 1 x deep HemoVac Fluid Volume Replaced (mls): 300 (Crystalloid) Operative Report Dictated: Yes
[2019-02-08] MEDS ORDERED: ACETAMINOPHEN 1000 MG/100 ML VIAL (NON FORMULARY) IVPB ONE (19:02)
[2019-02-08] MEDS ORDERED: ACETAMINOPHEN INJECTION 100 ML IVPB ONE (19:23)
--- NOTE | 2019-02-08 20:57 | CONSULT ---
Consultation: REQUESTING PROVIDER: CONSULT REQUEST: We have been asked to medically evaluate this patient for potential airway compromise. HISTORY OF PRESENT ILLNESS: Presentation: 63yo M PMH spinal stenosis (s/p C3-C4 anterior cervical discectomy and instrumented fusion on 02/05 - discharged 02/06), HLD, COPD/ Emphysema, Stage III CKD, Tourette's syndrome, diverticulosis, and BPH, who presented to the emergency department with neck swelling. Patient was evaluated at [facility] and followed up with his surgeon Dr. Baer earlier today at which time he was advised to report to the ED for admission for surgery secondary to a hematoma this afternoon. Patient endorses voice changes since his surgery but, denies any changes in voice throughout the postoperative course. He denies fevers, chills, nausea, vomiting, diarrhea, constipation, chest pain or shortness of breath. Hospital Course: Patient was taken to the OR where a 100cc dark hematoma was evacuated via I&D. Uncomplicated procedure, patient extubated, sent to PACU before transfer to ICU for airway evaluation / monitoring. Denies any difficult breathing or inability to swallow SUBASSEMBLIES WIRER or postoperatively. Has a noticeably more raspy / hoarse voice than he did on my 02/05 evaluation. REVIEW OF SYSTEMS: CONSTITUTIONAL: Absent: fever, chills, diaphoresis, generalized weakness, malaise, loss of appetite, weight change HEENT: +throat swelling, +voice changes Absent: rhinorrhea, nasal congestion, throat pain, difficulty swallowing, mouth swelling, ear pain, eye pain, visual changes CARDIOVASCULAR: Absent: chest pain, syncope, palpitations, irregular heart rate, lightheadedness , peripheral edema RESPIRATORY: Absent: cough, shortness of breath, dyspnea with exertion, orthopnea, wheezing, stridor, hemoptysis GASTROINTESTINAL: Absent: abdominal pain, abdominal distension, nausea, vomiting, diarrhea, constipation, melena, hematochezia GENITOURINARY: Absent: dysuria, frequency, urgency, hesitancy, hematuria, flank pain, genital pain MUSCULOSKELETAL: Absent: myalgia, arthralgia, joint swelling, back pain, neck pain SKIN: Absent: rash, itching, pallor HEMATOLOGIC/IMMUNOLOGIC: Absent: easy bleeding, easy bruising, lymphadenopathy, frequent infections ENDOCRINE: Absent: unexplained weight gain, unexplained weight loss, heat intolerance, cold intolerance NEUROLOGIC: Absent: headache, focal weakness or paresthesias, dizziness, unsteady gait, seizure, mental status changes, bladder or bowel incontinence PHYSICAL EXAMINATION Vital Signs - 24 hr 02/08/19 02/08/19 02/08/19 13:33 13:50 18:04 Temperature 98.2 F 99.1 F 98.8 F Pulse Rate 99 H 85 Pulse Rate [ 86 Left Radial] Respiratory 18 28 H 22 H Rate Blood Pressure 149/100 120/72 Blood Pressure 155/92 [Left Arm] O2 Sat by Pulse 95 93 L Oximetry (%) 02/08/19 02/08/19 02/08/19 18:22 18:35 18:50 Temperature 97.9 F Pulse Rate 87 79 82 Pulse Rate [ Left Radial] Respiratory 14 16 16 Rate Blood Pressure 160/92 169/101 H 141/101 H Blood Pressure [Left Arm] O2 Sat by Pulse 98 95 95 Oximetry (%) 02/08/19 02/08/19 02/08/19 19:05 19:20 19:35 Temperature Pulse Rate 79 78 78 Pulse Rate [ Left Radial] Respiratory 12 16 16 Rate Blood Pressure 158/105 H 161/95 161/98 Blood Pressure [Left Arm] O2 Sat by Pulse 94 L 96 98 Oximetry (%) 02/08/19 02/08/19 19:50 20:05 Temperature 98.5 F Pulse Rate 77 71 Pulse Rate [ Left Radial] Respiratory 16 16 Rate Blood Pressure 151/90 138/94 Blood Pressure [Left Arm] O2 Sat by Pulse 95 95 Oximetry (%) GENERAL: Awake, alert, and fully oriented, in no acute distress. HEAD: Normal with no signs of trauma. EYES: Pupils equal, round and reactive to light, extraocular movements intact, sclera anicteric, conjunctiva clear. No lid lag. EARS, NOSE, THROAT: Ears normal, nares patent, oropharynx clear without exudates. Moist mucous membranes. NECK: Dressing on anterior neck is c/d/i. Some swelling noticeable. Auscultation of the neck demonstrating upper airway sounds, no stridor. LUNGS: Breath sounds equal, clear to auscultation bilaterally with upper airway sounds transmitted in uppermost lungs. No stridor. No wheezes, and no crackles. No accessory muscle use - breathing comfortably on 3.5L nasal cannula. HEART: Regular rate and rhythm, normal S1 and S2 without murmur, rub or gallop. ABDOMEN: Soft, nontender, not distended, normoactive bowel sounds, no guarding, no rebound, no masses. No hepatomegaly or splenomegaly. UPPER EXTREMITIES: 2+ pulses, warm, well-perfused. No cyanosis. No clubbing. Cap refill <2 seconds. No peripheral edema. LOWER EXTREMITIES: 2+ pulses, warm, well-perfused. No calf tenderness. No peripheral edema. NEUROLOGICAL: Cranial nerves II-XII intact. Hoarse speech / Raspy voice compared to 02/05 exam. Normal gait. PSYCHIATRIC: Cooperative. Good eye contact. Appropriate mood and affect. SKIN: Warm, dry, normal turgor, no rashes or lesions noted. Laboratory Results - last 24 hr 02/08/19 02/08/19 02/08/19 14:10 14:10 14:10 WBC 11.8 H RBC 4.46 Hgb 13.6 Hct 40.4 MCV 90.6 MCH 30.5 MCHC 33.7 RDW 13.1 Plt Count 288 MPV 8.2 Absolute Neuts (auto) 8.8 H Neutrophils % 74.6 Lymphocytes % 10.0 D Monocytes % 11.2 H Eosinophils % 3.2 D Basophils % 1.0 D Nucleated RBC % 0 PT with INR INR PTT (Actin FS) 29.8 Sodium 136 Potassium 4.5 Chloride 101 Carbon Dioxide 30 Anion Gap 5 L BUN 18.6 H Creatinine 1.1 Est GFR (CKD-EPI)AfAm 81.22 Est GFR (CKD-EPI)NonAf 70.07 Random Glucose 99 Calcium 8.9 Total Bilirubin 0.9 AST 36 ALT 32 Alkaline Phosphatase 91 Total Protein 7.2 Albumin 3.6 Blood Type Antibody Screen 02/08/19 02/08/19 14:10 14:10 WBC RBC Hgb Hct MCV MCH MCHC RDW Plt Count MPV Absolute Neuts (auto) Neutrophils % Lymphocytes % Monocytes % Eosinophils % Basophils % Nucleated RBC % PT with INR 14.20 H INR 1.20 H PTT (Actin FS) Sodium Potassium Chloride Carbon Dioxide Anion Gap BUN Creatinine Est GFR (CKD-EPI)AfAm Est GFR (CKD-EPI)NonAf Random Glucose Calcium Total Bilirubin AST ALT Alkaline Phosphatase Total Protein Albumin Blood Type A POSITIVE Antibody Screen Negative Active Medications Generic Name Dose Route Start Last Admin Trade Name Freq PRN Reason Stop Dose Admin Albuterol Sulfate 1 amp 02/08/19 15:29 Ventolin 0.083% Nebulizer Soln - NEB Q4H PRN SHORT OF BREATH/WHEEZING Albuterol Sulfate 1 puff 02/08/19 18:15 Ventolin Hfa Inhaler - IH PRN [facility] Atorvastatin Calcium 10 mg 02/08/19 22:00 Lipitor - PO HS [facility] Cefazolin Sodium/Dextrose 2 gm 02/08/19 23:00 Ancef 2 Gm Premixed Ivpb - IVPB 02/09/19 11:01 Q6H ROSA Chlorhexidine Gluconate 1 applic 02/08/19 22:00 Hibiclens For Decolonization - TP HS [facility] Clonazepam 1 mg 02/08/19 22:00 Klonopin - PO HS [facility]A Fentanyl 50 mcg 02/08/19 15:18 02/08/19 19:00 Sublimaze Injection - IVPUSH 50 mcg [id number] PRN Administration PAIN-PACU ORDER X 4 DOSES ONLY Lactated Ringer's 1,000 mls @ 125 mls/hr 02/08/19 18:15 02/08/19 19:29 Lactated Ringers Solution IV 125 mls/hr ASDIR ROSA Administration Mupirocin 1 applic 02/08/19 22:00 Bactroban Ointment (For Decolonization) - NS 02/13/19 21:59 BID [facility] Non-Formulary Medication 1 each 02/09/19 10:00 Fluticasone/Umeclidin/Vilanter [Trelegy Ellipta 100-62.5-25] IH DAILY [facility] Non-Formulary Medication 15 mg 02/08/19 18:11 Oxycodone Hcl [Oxycodone Hcl] PO Q4H PRN PAIN Ondansetron HCl 4 mg 02/08/19 18:12 Zofran Injection IVPUSH Q6H PRN NAUSEA AND/OR VOMITING Umeclidinium/Vilanterol 1 puff 02/08/19 15:30 Anoro Ellipta 62.5-25 Mcg Inh IH DAILY [facility] ASSESSMENT/PLAN: 63yo M PMH spinal stenosis (s/p C3-C4 anterior cervical discectomy and instrumented fusion on 02/05 - discharged 02/06), HLD, COPD/Emphysema, Stage III CKD, Tourette's syndrome, diverticulosis, and BPH, who presented to the emergency department with neck swelling now POD#0 s/p I&D anterior cervical spine evacuation of hematoma. Progressing well postoperatively, ICU monitoring for potential airway compromise. #Neuro: - Maintain head of bed 30-45 degrees per surgery - Pain control per anaesthesia team; oral meds (oxycodone preferred), no QUALITY WORKER; NO NSAID's - Bilateral UE&LE neurovascular checks q3h - Home Klonopin for sleep #Neck: POD3 initial surgery, POD0 hematoma evacuation - F/u drain output - Keep dressing clean & dry #CV: HLD, no active issues - Monitor vitals #Pulm: COPD/Emphysema at baseline, no evidence of active issues - Monitor airway closely - Continue NC for patient comfort #Renal: Stage III CKD - F/u AM lytes, replete as indicated - Monitor I&Os - TOV #ID: - Post-op Ancef x 3 doses - Trend CBC, vitals #GI: Diverticulosis, no active issues - Advance diet as tolerated, starting with softs #PPX: - CASIMIRO's, SCDs - ISS - PT/OT/Rehab - OOB #Dispo: - We will continue to follow the patient. - Thank you for this consultative opportunity. - Per surgical team, discharge or downgrade 02/09/19 afternoon if stable airway and drain removed Visit type - Emergency Visit Emergency Visit: Yes ED Registration Date: 02/08/19 Care time: The patient presented to the Emergency Department on the above date and was hospitalized for further evaluation of their emergent condition. - New Patient This patient is new to me today: Yes Date on this admission: 02/08/19 - Critical Care Critical Care patient: Yes Total Critical Care Time (in minutes): 36 Critical Care Statement: The care of this patient involved high complexity decision making to prevent further life threatening deterioration of the patient 's condition and/or to evaluate & treat vital organ system(s) failure or risk of failure. ATTENDING PHYSICIAN STATEMENT I saw and evaluated the patient. I reviewed the resident's note and discussed the case with the resident. I agree with the resident's findings and plan as documented. SUBJECTIVE: OBJECTIVE: ASSESSMENT AND PLAN:
[2019-02-08] MEDS ORDERED: CHLORHEXIDINE GLUCONATE 4% CLEANSER FOR DECOLONIZATION TP SCH (22:00)
[2019-02-08] MEDS ORDERED: ATORVASTATIN CA 10 MG TABLET (FP) PO SCH (22:00)
[2019-02-08] MEDS ORDERED: clonazePAM 0.5 MG TABLET PO SCH (22:00)
[2019-02-08] MEDS: MUPIROCIN 2% TOPICAL OINTMENT FOR DECOLONIZATION NS SCH (22:07)
[2019-02-08] MEDS ORDERED: ALBUTEROL SO4 8 GM HFA INHALER IH PRN (22:12)
[2019-02-08] MEDS ORDERED: oxyCODONE HCL 5 MG TABLET PO PRN (22:13)
--- NOTE | 2019-02-09 00:19 | PN ---
Progress Note (short form) - Note Progress Note: Called to bedside midnight, patient refusing to wear monitors. Found up trying to open the window for fresh air. Advised that the windows are screwed shut, helped back into bed. Discussed the need for continued monitoring and risk of decompensation, airway compromise from expanding hematoma in case of re-bleed, and the need for early intervention if problems arise. Patient still refuses to wear monitor. Says he cannot sleep anyway with all the wires and tubes and has a drain that will clear any hematoma. Asserts he will be fine even when discussing the fact he has already had a potentially dangerous hematoma formation. Breath sounds reassessed, the same or slightly better than initial exam. Convinced patient to at least wear pulse Ox while in bed - he agreed as a "compromise." Patient understands the risks of removing his monitoring devices, agrees to pulse ox only. Has the capacity to make this choice. Will increase the frequency of in person evaluations of him for the remainder of the night.
[2019-02-09] MEDS: UMECLIDINIUM/VILANTEROL (ANORO) 62.5/25 MCG INHALER IH SCH ×2 (01:04→10:00)
[2019-02-09] MEDS: ceFAZolin 2 GRAM PREMIX BAG IVPB SCH ×3 (01:05→10:00)
[2019-02-09] MEDS ORDERED: PANTOPRAZOLE SODIUM 40 MG VIAL IVPUSH ONE (07:28)
[2019-02-09 07:36] LABS: BASO % 0.1 % (0-2.0); HEMATOCRIT 40.6 % (35.4-49); HEMOGLOBIN 13.6 GM/dL (11.7-16.9); LYMPH % 6.5 % (8-40); MCH 30.6 pg (25.7-33.7); MCHC 33.4 g/dl (32.0-35.9); MEAN CELL VOLUME 91.5 fl (80-96); MEAN PLT VOLUME 8.5 fl (7.5-11.1); MONO % 5.2 % (3.8-10.2); NEUT % 88.2 % (42.8-82.8); PLATELET COUNT 316 K/MM3 (134-434); RBC 4.44 M/mm3 (4.00-5.60); RDW 12.9 % (11.9-15.9); WHITE BLOOD COUNT 11.5 K/mm3 (4.0-10.0)
[2019-02-09 07:57] LABS: INR 1.19 (0.83-1.09); PROTHROMBIN TIME (PATIENT) 14.1 SEC (9.7-13.0)
[2019-02-09 08:00] LABS: ACTIVATED PTT 27.6 SECONDS (25.2-36.5)
[2019-02-09 08:07] LABS: BLOOD UREA NITROGEN 22.3 mg/dL (7-18); CALCIUM 8.9 mg/dL (8.5-10.1); CREATININE 1.1 mg/dL (0.55-1.3); MAGNESIUM 2.5 mg/dL (1.8-2.4); PHOSPHOROUS 3.6 mg/dL (2.5-4.9); POTASSIUM 4.6 mmol/L (3.5-5.1)
--- NOTE | 2019-02-09 08:23 | OP ---
DATE OF OPERATION: 02/08/2019 PREOPERATIVE DIAGNOSIS: Expanding hematoma, anterior cervical spine. POSTOPERATIVE DIAGNOSIS: Expanding hematoma, anterior cervical spine. OPERATION PERFORMED: 1. Incision and drainage, anterior cervical spine. 2. Inspection of fusion mass. FINDINGS: 100 mL retained dark hematoma. IRRIGATION USED: 1 L normal saline. SURGEON: Jeffrey Baer MD PSYCHIATRIC ATTENDANT: Syl Glover PA-C ANESTHESIOLOGIST: Presley Springer MD DRAINS: One deep hemo-vein drain utilized. CLOSURE: 2-0 Vicryl and 3-0 Biosyn. Jeffrey Baer MD [id number]
--- NOTE | 2019-02-09 08:28 | PN ---
Progress Note (short form) - Note Progress Note: POD#1 PT without complaints of swallowing difficulty. No CP or SOB. Had sips of water overnight. Urination without difficulty. No numbness/tingling in extremitities. Vital Signs Period Temp Pulse Resp BP Sys/[place] Pulse Ox Last 24 Hr 97.2 F-99.1 F 71-99 12-28 120-169/72-105 93-100 Hemovac: serosangrenous, 30ml overnight GEN: A&0x3, NAD NECK: dressing c/d/i. No masses or fullness noted CV: RRR Lungs: CTA b/l Neuro: 5/5 dorsi/plantar flexion. 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 CBC, BMP /22/ 05:40 11// 05:40 A/P: 63 yo male s/p ACDF 11/18 now POD#1 from hematoma evacuation Continue hemovac and will recheck outpt, if <30 ml in 8 hours plan for drain removal Soft diet as tolerated Care as per ICU team, transfer to floor as needed D/w Dr. Baer IV abx x 24 hours OOB and ambulate
[2019-02-09] MEDS: MUPIROCIN 2% TOPICAL OINTMENT FOR DECOLONIZATION NS SCH (10:00)
[2019-02-09] MEDS ORDERED: PT OWN MED DRAWER 7, Y5N ONE ×2 (10:07→18:20)
[2019-02-09] MEDS ORDERED: POLYETHYLENE GLYCOL 3350 119 GM BTL PO SCH (10:30)
--- NOTE | 2019-02-09 10:58 | PN ---
Teaching Attending Note Name of Resident: Amor Clemens ATTENDING PHYSICIAN STATEMENT I saw and evaluated the patient. I reviewed the resident's note and discussed the case with the resident. I agree with the resident's findings and plan as documented. SUBJECTIVE: Patient seen and examined in the ICU. POD#1 evacuation of a hematoma. Breathing feels better. No CP or SOB. Intake & Output 02/06/19 02/07/19 02/08/19 02/09/19 23:59 23:59 23:59 23:59 Intake Total 700 Output Total 900 30 Balance -200 -30 Weight 250 lb Last Vital Signs Temp Pulse Resp BP Pulse Ox 98 F 71 21 H 160/93 98 02/09/19 10:00 02/09/19 10:00 02/09/19 10:00 02/09/19 10:00 02/09/19 09:00 Active Medications Albuterol Sulfate (Ventolin 0.083% Nebulizer Soln -) 1 amp NEB Q4H PRN PRN Reason: SHORT OF BREATH/WHEEZING Last Admin: 02/09/19 01:15 Dose: 1 amp Albuterol Sulfate (Ventolin Hfa Inhaler -) 2 puff IH Q6H PRN PRN Reason: SHORTNESS OF BREATH Atorvastatin Calcium (Lipitor -) 10 mg PO [facility] Last Admin: 02/08/19 22:05 Dose: 10 mg Cefazolin Sodium/Dextrose (Ancef 2 Gm Premixed Ivpb -) 2 gm IVPB Q6H ROSA Stop: 02/09/19 11:01 Last Admin: 02/09/19 10:00 Dose: 2 gm Chlorhexidine Gluconate (Hibiclens For Decolonization -) 1 applic TP [facility] Last Admin: 02/08/19 22:07 Dose: 1 applic Clonazepam (Klonopin -) 1 mg PO HS [facility] Last Admin: 02/08/19 22:05 Dose: 1 mg Fentanyl (Sublimaze Injection -) 50 mcg IVPUSH [id number] PRN PRN Reason: PAIN-PACU ORDER X 4 DOSES ONLY Last Admin: 02/08/19 19:00 Dose: 50 mcg Lactated Ringer's (Lactated Ringers Solution) 1,000 mls @ 125 mls/hr IV ASDIR [facility] Last Admin: 02/08/19 19:29 Dose: 125 mls/hr Mometasone Furoate (Asmanex 220mcg -) 1 puff IH [facility] Mupirocin (Bactroban Ointment (For Decolonization) -) 1 applic NS BID [facility] Stop: 02/13/19 21:59 Last Admin: 02/09/19 10:00 Dose: 1 applic Ondansetron HCl (Zofran Injection) 4 mg IVPUSH Q6H PRN PRN Reason: NAUSEA AND/OR VOMITING Oxycodone HCl (Roxicodone -) 15 mg PO Q4H PRN PRN Reason: PAIN LEVEL 7 - 10 Polyethylene Glycol (Miralax (For Daily Use) -) 17 gm PO DAILY [facility] Umeclidinium/Vilanterol (Anoro Ellipta 62.5-25 Mcg Inh) 1 puff IH DAILY [facility] Last Admin: 02/09/19 01:04 Dose: Not Given Intake & Output 02/06/19 02/07/19 02/08/19 02/09/19 23:59 23:59 23:59 23:59 Intake Total 700 Output Total 900 30 Balance -200 -30 Weight 250 lb Last Vital Signs Temp Pulse Resp BP Pulse Ox 98 F 71 21 H 160/93 98 02/09/19 10:00 02/09/19 10:00 02/09/19 10:00 02/09/19 10:00 02/09/19 09:00 Active Medications Albuterol Sulfate (Ventolin 0.083% Nebulizer Soln -) 1 amp NEB Q4H PRN PRN Reason: SHORT OF BREATH/WHEEZING Last Admin: 02/09/19 01:15 Dose: 1 amp Albuterol Sulfate (Ventolin Hfa Inhaler -) 2 puff IH Q6H PRN PRN Reason: SHORTNESS OF BREATH Atorvastatin Calcium (Lipitor -) 10 mg PO [facility] Last Admin: 02/08/19 22:05 Dose: 10 mg Cefazolin Sodium/Dextrose (Ancef 2 Gm Premixed Ivpb -) 2 gm IVPB Q6H [facility] Stop: 02/09/19 11:01 Last Admin: 02/09/19 10:00 Dose: 2 gm Chlorhexidine Gluconate (Hibiclens For Decolonization -) 1 applic TP [facility] Last Admin: 02/08/19 22:07 Dose: 1 applic Clonazepam (Klonopin -) 1 mg PO [facility] Last Admin: 02/08/19 22:05 Dose: 1 mg Fentanyl (Sublimaze Injection -) 50 mcg IVPUSH [id number] PRN PRN Reason: PAIN-PACU ORDER X 4 DOSES ONLY Last Admin: 02/08/19 19:00 Dose: 50 mcg Lactated Ringer's (Lactated Ringers Solution) 1,000 mls @ 125 mls/hr IV ASDIR [facility]A Last Admin: 02/08/19 19:29 Dose: 125 mls/hr Mometasone Furoate (Asmanex 220mcg -) 1 puff IH HS [facility] Mupirocin (Bactroban Ointment (For Decolonization) -) 1 applic NS BID [facility] Stop: 02/13/19 21:59 Last Admin: 02/09/19 10:00 Dose: 1 applic Ondansetron HCl (Zofran Injection) 4 mg IVPUSH Q6H PRN PRN Reason: NAUSEA AND/OR VOMITING Oxycodone HCl (Roxicodone -) 15 mg PO Q4H PRN PRN Reason: PAIN LEVEL 7 - 10 Polyethylene Glycol (Miralax (For Daily Use) -) 17 gm PO DAILY [facility] Umeclidinium/Vilanterol (Anoro Ellipta 62.5-25 Mcg Inh) 1 puff IH DAILY [facility] Last Admin: 02/09/19 01:04 Dose: Not Given GENERAL: Awake, alert, and fully oriented, in no acute distress. HEAD: Normal with no signs of trauma. EYES: Pupils equal, round and reactive to light, extraocular movements intact, sclera anicteric, conjunctiva clear. No lid lag. EARS, NOSE, THROAT: Ears normal, nares patent, oropharynx clear without exudates. Moist mucous membranes. NECK: Dressing on anterior neck is c/d/i. (+) swelling. (+) intact SATISH LUNGS: Breath sounds equal, clear to auscultation bilaterally HEART: Regular rate and rhythm, normal S1 and S2 without murmur, rub or gallop. ABDOMEN: Soft, nontender, not distended, normoactive bowel sounds, no guarding, no rebound, no masses. No hepatomegaly or splenomegaly. UPPER EXTREMITIES: 2+ pulses, warm, well-perfused. No cyanosis. No clubbing. Cap refill <2 seconds. No peripheral edema. LOWER EXTREMITIES: 2+ pulses, warm, well-perfused. No calf tenderness. No peripheral edema. NEUROLOGICAL: Non-focal PSYCHIATRIC: Cooperative. Good eye contact. Appropriate mood and affect. SKIN: Warm, dry, normal turgor, no rashes or lesions noted. Laboratory Results - last 24 hr 02/08/19 02/08/19 02/08/19 14:10 14:10 14:10 WBC 11.8 H RBC 4.46 Hgb 13.6 Hct 40.4 MCV 90.6 MCH 30.5 MCHC 33.7 RDW 13.1 Plt Count 288 MPV 8.2 Absolute Neuts (auto) 8.8 H Neutrophils % 74.6 Lymphocytes % 10.0 D Monocytes % 11.2 H Eosinophils % 3.2 D Basophils % 1.0 D Nucleated RBC % 0 PT with INR INR PTT (Actin FS) 29.8 Sodium 136 Potassium 4.5 Chloride 101 Carbon Dioxide 30 Anion Gap 5 L BUN 18.6 H Creatinine 1.1 Est GFR (CKD-EPI)AfAm 81.22 Est GFR (CKD-EPI)NonAf 70.07 Random Glucose 99 Calcium 8.9 Phosphorus Magnesium Total Bilirubin 0.9 AST 36 ALT 32 Alkaline Phosphatase 91 Total Protein 7.2 Albumin 3.6 Blood Type Antibody Screen 02/08/19 02/08/19 02/09/19 14:10 14:10 05:40 WBC 11.5 H RBC 4.44 Hgb 13.6 Hct 40.6 MCV 91.5 MCH 30.6 MCHC 33.4 RDW 12.9 Plt Count 316 MPV 8.5 Absolute Neuts (auto) 10.1 H Neutrophils % 88.2 H Lymphocytes % 6.5 L D Monocytes % 5.2 Eosinophils % 0.0 D Basophils % 0.1 Nucleated RBC % 0 PT with INR 14.20 H INR 1.20 H PTT (Actin FS) Sodium Potassium Chloride Carbon Dioxide Anion Gap BUN Creatinine Est GFR (CKD-EPI)AfAm Est GFR (CKD-EPI)NonAf Random Glucose Calcium Phosphorus Magnesium Total Bilirubin AST ALT Alkaline Phosphatase Total Protein Albumin Blood Type A POSITIVE Antibody Screen Negative 02/09/19 02/09/19 05:40 05:40 WBC RBC Hgb Hct MCV MCH MCHC RDW Plt Count MPV Absolute Neuts (auto) Neutrophils % Lymphocytes % Monocytes % Eosinophils % Basophils % Nucleated RBC % PT with INR 14.10 H INR 1.19 H PTT (Actin FS) 27.6 Sodium 136 Potassium 4.6 Chloride 102 Carbon Dioxide 31 Anion Gap 4 L BUN 22.3 H Creatinine 1.1 Est GFR (CKD-EPI)AfAm 81.22 Est GFR (CKD-EPI)NonAf 70.07 Random Glucose 115 H Calcium 8.9 Phosphorus 3.6 Magnesium 2.5 H Total Bilirubin AST ALT Alkaline Phosphatase Total Protein Albumin Blood Type Antibody Screen ASSESSMENT/PLAN: POD #1: I&D anterior cervical spine evacuation of hematoma Spinal stenosis (s/p C3-C4 anterior cervical discectomy and instrumented fusion on 02/05) HLD COPD/Emphysema Stage III CKD Tourette's syndrome Diverticulosis BPH Airway monitoring O2 as needed Pain control Incentive Spirometry PO as tolerated Follow drain output Post-op Ancef x 3 doses Disposition per Orthopedics Dr Watkins
--- NOTE | 2019-02-09 11:10 | PN ---
Physical Exam: SUBJECTIVE: Patient seen and examined. Complains of heartburn which improved after receiving protonix. No complaints of difficulty breathing. Feels that his throat has improved. OBJECTIVE: Vital Signs Period Temp Pulse Resp BP Sys/[place] Pulse Ox Last 24 Hr 97.2 F-99.1 F 71-99 12-28 120-169/72-105 93-100 GENERAL: The patient is awake, alert, and fully oriented, in no acute distress. HEAD: Normal with no signs of trauma. EYES: PERRL, EOMI, no scleral icterus ENT: nares patent, oropharynx clear without exudates, moist mucous membranes. NECK: Trachea midline, full range of motion, supple. No stridor or carotid bruits auscultated. Drain in place without signs of erythema or swelling. LUNGS: Breath sounds equal, clear to auscultation bilaterally, no wheezes, no crackles, no accessory muscle use. HEART: Regular rate and rhythm, S1, S2 without murmur, rub or gallop. ABDOMEN: Soft, nontender, nondistended, normoactive bowel sounds, no guarding, no rebound EXTREMITIES: 2+ pulses, warm, well-perfused, no edema. NEUROLOGICAL: Normal speech, gait not observed. Sensation intact throughout. SKIN: Warm, dry, normal turgor Laboratory Results - last 24 hr 02/08/19 02/08/19 02/08/19 14:10 14:10 14:10 WBC 11.8 H RBC 4.46 Hgb 13.6 Hct 40.4 MCV 90.6 MCH 30.5 MCHC 33.7 RDW 13.1 Plt Count 288 MPV 8.2 Absolute Neuts (auto) 8.8 H Neutrophils % 74.6 Lymphocytes % 10.0 D Monocytes % 11.2 H Eosinophils % 3.2 D Basophils % 1.0 D Nucleated RBC % 0 PT with INR INR PTT (Actin FS) 29.8 Sodium 136 Potassium 4.5 Chloride 101 Carbon Dioxide 30 Anion Gap 5 L BUN 18.6 H Creatinine 1.1 Est GFR (CKD-EPI)AfAm 81.22 Est GFR (CKD-EPI)NonAf 70.07 Random Glucose 99 Calcium 8.9 Phosphorus Magnesium Total Bilirubin 0.9 AST 36 ALT 32 Alkaline Phosphatase 91 Total Protein 7.2 Albumin 3.6 Blood Type Antibody Screen 02/08/19 02/08/19 02/09/19 14:10 14:10 05:40 WBC 11.5 H RBC 4.44 Hgb 13.6 Hct 40.6 MCV 91.5 MCH 30.6 MCHC 33.4 RDW 12.9 Plt Count 316 MPV 8.5 Absolute Neuts (auto) 10.1 H Neutrophils % 88.2 H Lymphocytes % 6.5 L D Monocytes % 5.2 Eosinophils % 0.0 D Basophils % 0.1 Nucleated RBC % 0 PT with INR 14.20 H INR 1.20 H PTT (Actin FS) Sodium Potassium Chloride Carbon Dioxide Anion Gap BUN Creatinine Est GFR (CKD-EPI)AfAm Est GFR (CKD-EPI)NonAf Random Glucose Calcium Phosphorus Magnesium Total Bilirubin AST ALT Alkaline Phosphatase Total Protein Albumin Blood Type A POSITIVE Antibody Screen Negative 02/09/19 02/09/19 05:40 05:40 WBC RBC Hgb Hct MCV MCH MCHC RDW Plt Count MPV Absolute Neuts (auto) Neutrophils % Lymphocytes % Monocytes % Eosinophils % Basophils % Nucleated RBC % PT with INR 14.10 H INR 1.19 H PTT (Actin FS) 27.6 Sodium 136 Potassium 4.6 Chloride 102 Carbon Dioxide 31 Anion Gap 4 L BUN 22.3 H Creatinine 1.1 Est GFR (CKD-EPI)AfAm 81.22 Est GFR (CKD-EPI)NonAf 70.07 Random Glucose 115 H Calcium 8.9 Phosphorus 3.6 Magnesium 2.5 H Total Bilirubin AST ALT Alkaline Phosphatase Total Protein Albumin Blood Type Antibody Screen Active Medications Generic Name Dose Route Start Last Admin Trade Name Freq PRN Reason Stop Dose Admin Albuterol Sulfate 1 amp 02/08/19 15:29 02/09/19 01:15 Ventolin 0.083% Nebulizer Soln - NEB 1 amp Q4H PRN Administration SHORT OF BREATH/WHEEZING Albuterol Sulfate 2 puff 02/08/19 22:12 Ventolin Hfa Inhaler - IH Q6H PRN SHORTNESS OF BREATH Atorvastatin Calcium 10 mg 02/08/19 22:00 02/08/19 22:05 Lipitor - PO 10 mg HS ROSA Administration Chlorhexidine Gluconate 1 applic 02/08/19 22:00 02/08/19 22:07 Hibiclens For Decolonization - TP 1 applic HS [facility]SO[facility] Administration Clonazepam 1 mg 02/08/19 22:00 02/08/19 22:05 Klonopin - PO 1 mg HS ROSA Administration Fentanyl 50 mcg 02/08/19 15:18 02/08/19 19:00 Sublimaze Injection - IVPUSH 50 mcg [id number] PRN Administration PAIN-PACU ORDER X 4 DOSES ONLY Lactated Ringer's 1,000 mls @ 125 mls/hr 02/08/19 18:15 02/08/19 19:29 Lactated Ringers Solution IV 125 mls/hr ASDIR ROSA Administration Mometasone Furoate 1 puff 02/09/19 22:00 Asmanex 220mcg - IH HS ROSA Mupirocin 1 applic 02/08/19 22:00 02/09/19 10:00 Bactroban Ointment (For Decolonization) - NS 02/13/19 21:59 1 applic BID ROSA Administration Ondansetron HCl 4 mg 02/08/19 18:12 Zofran Injection IVPUSH Q6H PRN NAUSEA AND/OR VOMITING Oxycodone HCl 15 mg 02/08/19 22:13 Roxicodone - PO Q4H PRN PAIN LEVEL 7 - 10 Polyethylene Glycol 17 gm 02/09/19 10:30 Miralax (For Daily Use) - PO DAILY [facility] Umeclidinium/Vilanterol 1 puff 02/08/19 15:30 02/09/19 01:04 Anoro Ellipta 62.5-25 Mcg Inh IH Not Given DAILY [facility] ASSESSMENT/PLAN: 63yo M PMH spinal stenosis (s/p C3-C4 anterior cervical discectomy and instrumented fusion on 02/05 - discharged 02/06, POD #4), HLD, COPD/Emphysema, Stage III CKD, Tourette's syndrome, diverticulosis, and BPH, who presented to the emergency department with neck swelling now POD#1 s/p I&D anterior cervical spine evacuation of hematoma. 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 30ml overnight. - Keep dressing clean & dry - Spoke with kishan Porras to transfer patient to floors. Will update on drainage. #CV - HLD, no active issues - Monitor vitals #Pulm - COPD/Emphysema at baseline, no evidence of active issues - Monitor airway closely - Continue NC for patient comfort - Main SpO2 >90% #Renal - Stage III CKD - Monitor I&Os #ID - Post-op Ancef x 3 doses - WBC 11.5, afebrile. Monitor #GI - Diverticulosis, no active issues - Advance diet as tolerated, starting with softs #PPX - CASIMIRO's, SCDs - PT/OT/Rehab - OOB #Dispo - Stable for transfer to floors, spoke with Dr. Baer Visit type - Emergency Visit Emergency Visit: Yes ED Registration Date: 02/08/19 Care time: The patient presented to the Emergency Department on the above date and was hospitalized for further evaluation of their emergent condition. - New Patient This patient is new to me today: Yes Date on this admission: 02/09/19 - Critical Care Critical Care patient: Yes Total Critical Care Time (in minutes): 36 Critical Care Statement: The care of this patient involved high complexity decision making to prevent further life threatening deterioration of the patient 's condition and/or to evaluate & treat vital organ system(s) failure or risk of failure. ATTENDING PHYSICIAN STATEMENT I saw and evaluated the patient. I reviewed the resident's note and discussed the case with the resident. I agree with the resident's findings and plan as documented. SUBJECTIVE: OBJECTIVE: ASSESSMENT AND PLAN:
[2019-02-09] MEDS ORDERED: oxyCODONE HCL 5 MG TABLET PO PRN (17:07)
[2019-02-09] MEDS ORDERED: ALBUTEROL SO4 0.083% IH SOL 2.5 MG/3 ML VIAL.NEB. NEB PRN (17:07)
[2019-02-09] MEDS ORDERED: ONDANSETRON 4 MG/2 ML VIAL IVPUSH PRN (17:07)
[2019-02-09] MEDS ORDERED: ALBUTEROL SO4 8 GM HFA INHALER IH PRN (17:07)
--- NOTE | 2019-02-09 17:54 | PN ---
Progress Note (short form) - Note Progress Note: Hospitalist Medicine Has been noncompliant with ICU monitoring. Hemovac drain removed by sx this afternoon. Per sx, for d/c home tomorrow. Still concerned over his voice. Vitals 02/09/19 02/09/19 14:00 16:00 Temperature 98.1 F Pulse Rate 72 Respiratory 20 Rate Blood Pressure 125/87 Physical Exam general: pleasant. in NAD, however w/ improved muffled voice HEENT: NCAT, PERRLA. uvula visualized neck: +with gauze, edematous cardio: s1, s2 rrr. no r/m/g pulm: cta b/l. no accessory m usage abdomen: soft, obese, nontender, nondistended LE: 2+ pt pulses, no edema +hemovac removed this afternoon Laboratory Tests 02/09/19 02/09/19 05:40 05:40 WBC 11.5 H Hgb 13.6 Hct 40.6 Plt Count 316 Sodium 136 Potassium 4.6 Chloride 102 BUN 22.3 H Creatinine 1.1 Magnesium 2.5 H Soft tissue neck XR: +soft tissue air Assessment/plan 63 y/o old M with a PMH spinal stenosis (s/p C3-C4 anterior cervical discectomy and instrumented fusion on 02/05), HLD, COPD/Emphysema, Stage III CKD, Tourette' s syndrome, diverticulosis, and BPH, who presented to the ED with neck swelling. #Neck hematoma s/p recent C3-C4 ACDF sx -incentive spirometer -PT, OOB as tolerated -elevate HOB -advance diet as tolerated -protonix 40mg IVP qd, change to PO tomorrow -miralax bowel regimen -pain control w/ bharat 15mg q4h PRN -transfer to floor from ICU -Sx: Dr. Baer #COPD -currently not in exacerbation -c/w ventolin nebs PRN, anoro BID, asmanex - home inhaler is not formulary -RI 02 as needed -goal sat 88-92% #Stage 3 CKD -stable; monitor #Tourette's -c/w klonopin #F/E/N d/c IVF continue to follow lytes soft diet, advance as tolerated #PPX DVT: SCD's #Dispo Per sx, for d/c home tomorrow. <Lillie,Riri - Last Filed: 02/09/19 17:58> - Note Progress Note: please note that this is a history and physical document that was fiiled in error under the title 'progress note.' For billing and patient care purposes please treat the entirety of this document as the history and physical for this admission. Thanks Seen and examined; discussed at length with resident team and indicated consultants. Independently reviewed all murphy historical, PE, diagnostic, and imaging findings. Agree with above documentation and assessment and plan as documented by resident aside from as supplemented below. Drain to be removed this PM and home in AM. Pain controlled, no further bleeding. 10 sys ROS done and negative aside from HPI VS labs imaging reviewed NAD, AAO resting in bed Trachea midline with overlying surgical dressing c/d/i with associated fullness underlying it but no acute bleeding. NC AT EOMI PERRLA Wheezes throughout bilaterally but present air motion, w/ sym exp HR wnl +s1/2 NT ND +BS CN2-12 wnl, no progressive neuro sx Normal mood, appropriate behavior A/P: Presented with postoperative hematoma; s/p drainage and evacuation POD#1. Drain being removed this PM and home in AM. Agree with problem list as documented above. Full Code <Servando Alonso - Last Filed: 02/09/19 23:12>
[2019-02-09] MEDS ORDERED: ATORVASTATIN CA 10 MG TABLET (FP) PO SCH (22:00)
[2019-02-09] MEDS ORDERED: MOMETASONE FUROATE 220 MCG/IH INHALER IH SCH ×2 (22:00)
[2019-02-09] MEDS ORDERED: clonazePAM 0.5 MG TABLET PO SCH (22:00)
[2019-02-09] MEDS ORDERED: BENZOCAINE/MENTH/CETYLPYRD CL 1 EACH LOZENGE MM PRN (22:51)
[2019-02-10] MEDS ORDERED: POLYETHYLENE GLYCOL 3350 119 GM BTL PO SCH (10:00)
[2019-02-10] MEDS ORDERED: UMECLIDINIUM/VILANTEROL (ANORO) 62.5/25 MCG INHALER IH SCH (10:00)
[2019-02-10] MEDS ORDERED: PT OWN MED DRAWER 7, Y5N ONE (10:23)
[2019-02-10] MEDS ORDERED: SODIUM CHLORIDE 1,000 ML IV SCH (10:45)
--- NOTE | 2019-02-10 10:55 | PN ---
Progress Note, Physician History of Present Illness: Patient seen and examined at bedside. RN asked to me to see patient this AM due to patient concern for worsening neck hematoma. Patient states his voice is normal and his breathing is good. He at time feels some pressure which makes him nervous and he gets a bit SOB. He denies nausea vomiting fever chills chest pain or SOB. Patient seen again with Dr. Baer and he will take patient to OR for drainage of neck hematoma at 5pm as the patient ate breakfast at 9am. - Current Medication List Current Medications: Active Medications Albuterol Sulfate (Ventolin 0.083% Nebulizer Soln -) 1 amp NEB Q4H PRN PRN Reason: SHORT OF BREATH/WHEEZING Last Admin: 02/10/19 09:05 Dose: 1 amp Atorvastatin Calcium (Lipitor -) 10 mg PO HS [facility] Last Admin: 02/09/19 21:08 Dose: 10 mg Benzocaine/Menthol (Cepacol Lozenge -) 1 each MM Q2H PRN PRN Reason: SORE THROAT Clonazepam (Klonopin -) 1 mg PO HS [facility] Last Admin: 02/09/19 21:08 Dose: 1 mg Fentanyl (Sublimaze Injection -) 50 mcg IVPUSH [id number] PRN PRN Reason: PAIN-PACU ORDER X 4 DOSES ONLY Sodium Chloride (Normal Saline -) 1,000 mls @ 75 mls/hr IV ASDIR ROSA Mometasone Furoate (Asmanex 220mcg -) 1 puff IH HS [facility] Last Admin: 02/09/19 21:46 Dose: 1 puff Ondansetron HCl (Zofran Injection) 4 mg IVPUSH Q6H PRN PRN Reason: NAUSEA AND/OR VOMITING Oxycodone HCl (Roxicodone -) 15 mg PO Q4H PRN PRN Reason: PAIN LEVEL 7 - 10 Last Admin: 02/10/19 07:03 Dose: 15 mg Polyethylene Glycol (Miralax (For Daily Use) -) 17 gm PO DAILY [facility] Umeclidinium/Vilanterol (Anoro Ellipta 62.5-25 Mcg Inh) 1 puff IH DAILY [facility] Last Admin: 02/10/19 10:46 Dose: 1 puff - Objective Vital Signs: Vital Signs Temperature 98.4 F 02/10/19 08:00 Pulse Rate 80 02/10/19 08:00 Respiratory Rate 16 02/10/19 08:00 Blood Pressure 147/101 H 02/10/19 08:00 O2 Sat by Pulse Oximetry (%) 100 02/09/19 10:00 Constitutional: Yes: Well Nourished, No Distress, Calm Eyes: Yes: Conjunctiva Clear HENT: No: Hoarseness Neck: Yes: Other (slightly tender over incision. Neck hematoma per RN slightly worse and per overnight RN reported it is slightly worse as well.) Cardiovascular: Yes: Regular Rate and Rhythm. No: Murmur Respiratory: Yes: Regular, CTA Bilaterally Gastrointestinal: Yes: Soft. No: Distention, Tenderness, Rebound Musculoskeletal: Yes: WNL Extremities: Yes: WNL Wound/Incision: Yes: Clean/Dry Neurological: Yes: Alert, Oriented ...Motor Strength: WNL Psychiatric: Yes: Alert, Oriented Labs: CBC, BMP 02/09/19 05:40 02/09/19 05:40 INR, PTT INR 1.19 (0.83-1.09) H 02/09/19 05:40 Impression/Plan Impression/Plan: 63M with PMH spinal stenosis POD#5 s/p C3-C4 anterior cervical discectomy and instrumented fusion , HLD, COPD/Emphysema, Stage III CKD, Tourette's syndrome, diverticulosis, and BPH, who presented to the ED with neck swelling after initial surgery on 02/05 now with neck hematoma day s/p drainage 2 days ago on 02/08/19 and now re-accumulated for OR today for repeat drainage. neck hematoma after C3-C4 ACDF via anterior neck approach 5 days ago s/p drainage 2 days ago now with re-accumulation. Pain control NPO IVF for OR at 5pm for drainage and drain placement trend CBC COPD-Stable. clear lungs. no cough or sputum production continue bronchodilators and home meds-ventolin nebs PRN, anoro BID, asmanex Continue klonopin for tourettes Statin for HLD D/C anticipated in 24-48 hours depending on post op course Visit type - Emergency Visit Emergency Visit: Yes ED Registration Date: 02/08/19 Care time: The patient presented to the Emergency Department on the above date and was hospitalized for further evaluation of their emergent condition. - New Patient This patient is new to me today: Yes Date on this admission: 02/10/19 - Critical Care Critical Care patient: No
--- NOTE | 2019-02-10 11:19 | PN ---
Progress Note (short form) - Note Progress Note: Post ACDF for cervical spondylogenic myelopathy 5 days ago. Discharged and readmitted 2 days later for expanding hematoma necessitating Iand D Drain removed yesterday. Unfortunately reaccumulation of hematoma necessitating repeat Iand D to be performed later today. O/E Swelling noted in the neck Wound dry at this point No distress. Vitals signs stable. Comfortable Neuro staus ++improved ff the index procedure Ate breakfast at 9am Booked for repeat Iand D later this afternoon Keep NPO If clinically deteriorating for crash intubation This is not necessary at present.Will monitor.
[2019-02-10] MEDS ORDERED: PROPOFOL 20 ML ONE ×2 (17:38)
[2019-02-10] MEDS ORDERED: MIDAZOLAM HCL 2 MG/2 ML SINGLE DOSE VIAL ONE ×2 (17:39→19:05)
[2019-02-10] MEDS ORDERED: SUCCINYLCHOLINE CHLORIDE 200 MG/10 ML SYRINGE ONE (17:39)
[2019-02-10] MEDS ORDERED: ROCURONIUM BROMIDE 50 MG/5 ML SYRINGE ONE ×2 (17:39→19:06)
[2019-02-10] MEDS ORDERED: ceFAZolin SODIUM 1 GM VIAL ONE (17:42)
[2019-02-10] MEDS ORDERED: GLYCOPYRROLATE 0.2 MG/1 ML VIAL ONE (17:42)
[2019-02-10] MEDS ORDERED: DEXAMETHASONE SOD PHOSPHATE 4 MG/1 ML VIAL ONE ×2 (17:42→18:26)
[2019-02-10] MEDS ORDERED: LIDOCAINE HCL 4% TOPICAL SOLN (50 ML/BOTTLE) ONE (17:42)
[2019-02-10] MEDS ORDERED: DEXMEDETOMIDINE HCL 200 MCG/2 ML IVPB ONE (17:53)
[2019-02-10] MEDS ORDERED: ONDANSETRON 4 MG/2 ML VIAL IVPUSH PRN ×3 (18:03→20:04)
[2019-02-10] MEDS ORDERED: LACTATED RINGERS SOLUTION 1,000 ML IV SCH (18:15)
[2019-02-10] MEDS ORDERED: ceFAZolin SODIUM 1 GM VIAL IVPB ONE (18:30)
[2019-02-10] MEDS ORDERED: EPHEDRINE SULFATE/0.9% NACL/PF 50 MG/10 ML SYRINGE NR ONE (18:33)
[2019-02-10] MEDS ORDERED: PROPOFOL 1000 MG/100 ML VIAL IVPB ONE (19:30)
--- NOTE | 2019-02-10 19:30 | OP ---
Operative Note - Note: Operative Date: 02/10/19 Pre-Operative Diagnosis: Hematoma neck Operation: Incision Drainage Primary closure Findings: 30mls blood Surgeon: Srinivasa Baer Anesthesia: General Estimated Blood Loss (mls): 100 Drains & Tubes with Location: Hemovac 1/8 inch sutured Operative Report Dictated: Yes
[2019-02-10] MEDS ORDERED: PANTOPRAZOLE SODIUM 40 MG VIAL IVPUSH SCH (19:45)
[2019-02-10] MEDS ORDERED: ALBUTEROL SO4 0.083% IH SOL 2.5 MG/3 ML VIAL.NEB. NEB PRN (20:04)
[2019-02-10] MEDS ORDERED: oxyCODONE HCL 5 MG TABLET PO PRN (20:04)
--- NOTE | 2019-02-10 20:07 | OP ---
DATE OF OPERATION: DATE OF DICTATION: 02/10/2019 SURGEON: Srinivasa Baer MD TILE INSPECTOR: Nursing staff, [facility] PREOPERATIVE DIAGNOSIS: Second event hematoma, neck following an anterior cervical diskectomy fusion in a patient with hypercapnia complicating chronic obstructive airway disease. POSTOPERATIVE DIAGNOSIS: Second event hematoma, neck following an anterior cervical diskectomy fusion in a patient with hypercapnia complicating chronic obstructive airway disease. OPERATION PERFORMED: Incision, drainage, washout of tissues; primary closure. ANESTHESIA: General with fiberoptic intubation. ANTIBIOTICS GIVEN: Kefzol 2 g and Decadron 10 mg. OPERATION DETAILS AND INDICATIONS: Patient correctly identified, brought to the operating room. Patient was supine. An awake fiberoptic intubation was performed by the anesthesia team. The nasopharyngeal tissues were markedly swollen. Difficult intubation, but successfully performed with no complications. Under general anesthesia, the tissues were cleansed with Betadine scrub solution, wiped off with alcohol, DuraPrep applied. A window drape applied to the front. Bolster was placed behind the neck, and the patient placed in a papoose-type constraining drape. After appropriate draping, timeout was called. The original wound was opened. The sutures were removed; that is both at the skin level and at the level of the investing layer of fascia and subcutaneous tissues. Tissues were all irregular, edematous. With gentle finger palpation, I entered the deep space between the viscera and vessels, and approximately 30 mL of rich blood/serosanguineous removed. This was not pure blood, but more serosanguineous, but bias towards more bleeding. This was thoroughly lavaged. Prior to lavage, cultures were taken for microscopy, culture, and sensitivity. A liberal amount of washout was performed. The tissues were inspected using retractors. No bleeding was encountered and seen; that is no active venous or arterial bleeding noted. The tissues once again were washed out. The skin and subcutaneous tissue was closed with Lautenbach sutures; that is number 2-0 nylon sutures, capturing with monofilament material the skin and investing layer of fascia, thus closing all in one with a vertical mattress type suture which closed deep and superficial layers. The rationale for this was monofilament material in the presence of the potential infection and number 2: Once all suture material was removed, in 3 weeks, there will be no foreign suture material in the soft tissue bed. Any foreign material that will remain will be the anterior plating and the interbody cage of the anterior cervical diskectomy fusion which was performed 6 days ago. A sealed dressing was applied. A 1/8-inch Hemovac drain was placed deep, and this was actually sutured into position. The patient was catheterized as the patient will be kept intubated for 24, possibly 48 hours, depending on the swelling of the tissues and his ventilation. The challenge is his chronic obstructive pulmonary disease. Everything was uncomplicated. Neurological status was at baseline, and he was transferred to the ICU and set up for appropriate intubation on a ventilator. MD ASHLEY Barajas/[id number]
[2019-02-10] MEDS ORDERED: DEXAMETHASONE SOD PHOSPHATE 10 MG/1 ML VIAL IVPUSH SCH (21:00)
--- NOTE | 2019-02-10 21:01 | PN ---
Physical Exam: SUBJECTIVE: Patient seen and examined by the bedside, intubated and sedated. OBJECTIVE: Vital Signs Period Temp Pulse Resp BP Sys/Holland Pulse Ox Last 24 Hr 98.3 F-98.5 F 66-87 16-20 143-157/87-101 93 GENERAL: Intubated, sedated HEAD: Normal with no signs of trauma. EYES: PERRL NECK: Bandaged LUNGS: Transmitted breath sounds B/L, no wheeze/crackles HEART: Regular rate and rhythm, S1, S2 without murmur, rub or gallop. ABDOMEN: Soft, nontender, nondistended EXTREMITIES: 2+ pulses, warm, well-perfused, no edema. NEUROLOGICAL: Sedated SKIN: Warm, dry, normal turgor, no rashes or lesions noted Active Medications Generic Name Dose Route Start Last Admin Trade Name Freq PRN Reason Stop Dose Admin Albuterol Sulfate 1 amp 02/10/19 20:04 Ventolin 0.083% Nebulizer Soln - NEB Q4H PRN SHORT OF BREATH/WHEEZING Chlorhexidine Gluconate 1 applic 02/10/19 22:00 Hibiclens For Decolonization - TP HS ROSA Dexamethasone Sodium Phosphate 10 mg 02/10/19 21:00 Decadron Injection - IVPUSH 02/11/19 10:00 Q6H-IV ROSA Hydromorphone HCl 2 mg 02/10/19 20:00 Dilaudid Vial - IVPB Q6H ROSA Cefazolin Sodium 1 gm/ 50 mls @ 100 mls/hr 02/11/19 02:00 Dextrose IVPB 02/12/19 01:59 Q8H-IV ROSA Sodium Chloride 1,000 mls @ 75 mls/hr 02/10/19 20:04 Normal Saline - IV ASDIR ROSA Propofol 1,000,000 mcg in 100 mls @ 17.01 mls/hr 02/10/19 20:15 Diprivan - IVPB TITR ROSA Protocol 25 MCG/KG/MIN Mupirocin 1 applic 02/10/19 22:00 Bactroban Ointment (For Decolonization) - NS 02/15/19 21:59 BID ROSA Ondansetron HCl 4 mg 02/10/19 20:04 Zofran Injection IVPUSH Q6H PRN NAUSEA AND/OR VOMITING Ondansetron HCl 4 mg 02/10/19 20:04 Zofran Injection IVPUSH Q6H PRN NAUSEA AND/OR VOMITING Oxycodone HCl 15 mg 02/10/19 20:04 Roxicodone - PO Q4H PRN PAIN LEVEL 7 - 10 Pantoprazole Sodium 40 mg 02/11/19 10:00 Protonix Iv IVPUSH DAILY ROSA Polyethylene Glycol 17 gm 02/11/19 10:00 Miralax (For Daily Use) - PO DAILY ROSA ASSESSMENT/PLAN: 63M with PMH of spinal stenosis, HLD, COPD/Emphysema, Stage III CKD, Tourette's syndrome, diverticulosis, and BPH, who presented to the emergency department with neck swelling. POD#5: s/p C3-C4 anterior cervical discectomy and instrumented fusion on 02/05 - discharged 02/06 POD#2: s/p I&D anterior cervical spine evacuation of hematoma. POD0#0: s/p repeat I&D due to reaccumulation of hematoma and worsening SOB #Neuro - Pt intubated and sedated - Analgesia: Dilaudid MEDICAL COMMUNICATION SPECIALIST, Oxycodone PO - 100ml estimated blood loss during procedure #CV - HLD, no active issues - Monitor vitals #Pulm - COPD/Emphysema at baseline, no evidence of active issues - Monitor airway closely - Continue NC for patient comfort - Main SpO2 >90% #Renal - Stage III CKD - Monitor I&Os #ID - Afebrile, Monitor #GI - Diverticulosis, no active issues #PPX - CASIMIRO's, SCDs - Protonix 40mg IV OD - PT/OT/Rehab - OOB #Dispo - Monitor in ICU Visit type - Emergency Visit Emergency Visit: Yes ED Registration Date: 02/08/19 Care time: The patient presented to the Emergency Department on the above date and was hospitalized for further evaluation of their emergent condition. - New Patient This patient is new to me today: No - Critical Care Critical Care patient: Yes Total Critical Care Time (in minutes): 37 Critical Care Statement: The care of this patient involved high complexity decision making to prevent further life threatening deterioration of the patient 's condition and/or to evaluate & treat vital organ system(s) failure or risk of failure. ATTENDING PHYSICIAN STATEMENT I saw and evaluated the patient. I reviewed the resident's note and discussed the case with the resident. I agree with the resident's findings and plan as documented. SUBJECTIVE: OBJECTIVE: ASSESSMENT AND PLAN:
[2019-02-10] MEDS: HYDROmorphone HCl 2 MG/ML VIAL IVPB SCH (21:08)
[2019-02-10] MEDS: DEXAMETHASONE SOD PHOSPHATE 10 MG/1 ML VIAL IVPUSH SCH (21:08)
[2019-02-10] MEDS: SODIUM CHLORIDE 1,000 ML IV SCH (21:10)
[2019-02-10] MEDS: PROPOFOL 1,000,000 MCG/100 ML VIAL IVPB SCH (21:11)
[2019-02-10] MEDS ORDERED: MIDAZOLAM IN 0.9 % SOD.CHLORID 1 MG/1 ML PLAST..BAG ONE (21:28)
[2019-02-10] MEDS: CHLORHEXIDINE GLUCONATE 4% CLEANSER FOR DECOLONIZATION TP SCH (21:40)
[2019-02-10] MEDS: MIDAZOLAM 100 MG in SODIUM CHLORIDE 100 ML IVPB SCH (21:48)
[2019-02-11] MEDS: HYDROmorphone HCl 2 MG/ML VIAL IVPB SCH ×3 (01:22→14:03)
[2019-02-11] MEDS: MUPIROCIN 2% TOPICAL OINTMENT FOR DECOLONIZATION NS SCH ×3 (01:25→21:35)
[2019-02-11] MEDS ORDERED: ceFAZolin SODIUM 1 GM VIAL ONE ×3 (01:27→16:44)
[2019-02-11] MEDS ORDERED: DEXTROSE 5%-WATER - 50 ML IVPB ONE ×3 (01:28→16:44)
[2019-02-11] MEDS: CEFAZOLIN 1 GM in DEXTROSE 5%-WATER - 50 ML IVPB SCH ×3 (01:30→17:00)
[2019-02-11] MEDS ORDERED: CEFAZOLIN 1 GM in DEXTROSE 5%-WATER - 50 ML IVPB SCH (02:00)
[2019-02-11] MEDS: DEXAMETHASONE SOD PHOSPHATE 10 MG/1 ML VIAL IVPUSH SCH ×3 (02:49→17:00)
[2019-02-11 07:35] LABS: HEMATOCRIT 36.1 % (35.4-49); HEMOGLOBIN 12.2 GM/dL (11.7-16.9); MCH 31.4 pg (25.7-33.7); MCHC 33.8 g/dl (32.0-35.9); MEAN PLT VOLUME 8.1 fl (7.5-11.1); PLATELET COUNT 295 K/MM3 (134-434); RBC 3.89 M/mm3 (4.00-5.60); RDW 13.3 % (11.9-15.9)
[2019-02-11 07:56] LABS: ANION GAP 3 MMOL/L (8-16); BLOOD UREA NITROGEN 34.3 mg/dL (7-18); CALCIUM 8.2 mg/dL (8.5-10.1); CHLORIDE 108 mmol/L (98-107); CO2 28 mmol/L (21-32); CREATININE 1.4 mg/dL (0.55-1.3); GLUCOSE,RANDOM 124 mg/dL (74-106); POTASSIUM 5.3 mmol/L (3.5-5.1); SODIUM 139 mmol/L (136-145)
[2019-02-11] MEDS ORDERED: MIDAZOLAM IN 0.9 % SOD.CHLORID 1 MG/1 ML PLAST..BAG ONE (08:36)
--- NOTE | 2019-02-11 08:38 | PN ---
Progress Note (short form) - Note Progress Note: Post op day#1.S/P Evacuation of haematoma post corpectomy under GA uneventful.P 64 BP 103/74 and Spo2 94 on O2 40%.Patient left intubated and will be weened off soon.No any anesthesia related problem.Patient DC from the anesthesia care.
[2019-02-11] MEDS: MIDAZOLAM 100 MG in SODIUM CHLORIDE 100 ML IVPB SCH (08:44)
[2019-02-11] MEDS: PANTOPRAZOLE SODIUM 40 MG VIAL IVPUSH SCH (09:32)
[2019-02-11] MEDS: SODIUM CHLORIDE 1,000 ML IV SCH (09:32)
[2019-02-11] MEDS: POLYETHYLENE GLYCOL 3350 119 GM BTL PO SCH (09:33)
--- NOTE | 2019-02-11 11:28 | PN ---
Teaching Attending Note Name of Resident: Srinivasa Spring ATTENDING PHYSICIAN STATEMENT I saw and evaluated the patient. I reviewed the resident's note and discussed the case with the resident. I agree with the resident's findings and plan as documented. SUBJECTIVE: Pt seen and examined in the ICU. Intubated, awake off sedation. Tolerated CPAP/ PS trials and subsequently extubated during rounds. OBJECTIVE: Vital Signs Period Temp Pulse Resp BP Sys/Holland Pulse Ox Last 24 Hr 97.8 F-98.5 F 62-72 14-20 82-157/56-92 94-97 Intake & Output 02/08/19 02/09/19 02/10/19 02/11/19 23:59 23:59 23:59 23:59 Intake Total 700 1850 1841 Output Total 900 50 500 500 Balance -200 -50 1350 1341 Weight 113.398 kg 110.7 kg Gen: extubated Heart: RRR Lung: decreased breath sounds at the bases Abd: soft, nontender Ext: no edema CBC, BMP 02/11/19 06:15 02/11/19 06:15 Active Medications Albuterol Sulfate (Ventolin 0.083% Nebulizer Soln -) 1 amp NEB Q4H PRN PRN Reason: SHORT OF BREATH/WHEEZING Chlorhexidine Gluconate (Hibiclens For Decolonization -) 1 applic TP HS ROSA Last Admin: 02/10/19 21:40 Dose: 1 applic Dexamethasone Sodium Phosphate (Decadron Injection -) 10 mg IVPUSH Q8H-IV ROSA Hydromorphone HCl (Dilaudid Vial -) 2 mg IVPB Q6H ROSA Last Admin: 02/11/19 08:42 Dose: 2 mg Cefazolin Sodium 1 gm/ (Dextrose) 50 mls @ 100 mls/hr IVPB Q8H-IV ROSA Stop: 02/12/19 01:59 Last Admin: 02/11/19 09:36 Dose: 100 mls/hr Sodium Chloride (Normal Saline -) 1,000 mls @ 75 mls/hr IV ASDIR ROSA Last Admin: 02/11/19 09:32 Dose: 75 mls/hr Propofol (Diprivan -) 1,000,000 mcg in 100 mls @ 17.01 mls/hr IVPB TITR ROSA; Protocol Last Titration: 02/11/19 07:00 Dose: 20 mcg/kg/min, 13.608 mls/hr Midazolam HCl 100 mg/ Sodium (Chloride) 100 mls @ 1 mls/hr IVPB TITR ROSA; Protocol Last Admin: 02/11/19 08:44 Dose: 8 mg/hr, 8 mls/hr Mupirocin (Bactroban Ointment (For Decolonization) -) 1 applic NS BID [facility] Stop: 02/15/19 21:59 Last Admin: 02/11/19 09:34 Dose: 1 applic Ondansetron HCl (Zofran Injection) 4 mg IVPUSH Q6H PRN PRN Reason: NAUSEA AND/OR VOMITING Ondansetron HCl (Zofran Injection) 4 mg IVPUSH Q6H PRN PRN Reason: NAUSEA AND/OR VOMITING Oxycodone HCl (Roxicodone -) 15 mg PO Q4H PRN PRN Reason: PAIN LEVEL 7 - 10 Pantoprazole Sodium (Protonix Iv) 40 mg IVPUSH DAILY [facility] Last Admin: 02/11/19 09:32 Dose: 40 mg Polyethylene Glycol (Miralax (For Daily Use) -) 17 gm PO DAILY [facility] Last Admin: 02/11/19 09:33 Dose: Not Given ASSESSMENT AND PLAN: s/p Hematoma Evacuation x 2 Cervical Spinal Stenosis COPD/Emphysema Stage III CKD Tourette's syndrome Diverticulosis Hyperlipidemia BPH - pt extubated - pain control - incentive spirometry - monitor drain output - O2 to keep SpO2 >90% - PO as tolerated in PM - DVT prophylaxis
[2019-02-11] MEDS ORDERED: DEXAMETHASONE SOD PHOSPHATE 10 MG/1 ML VIAL IVPUSH SCH (11:30)
--- NOTE | 2019-02-11 13:40 | PN ---
Physical Exam: SUBJECTIVE: Patient seen and examined. Pt. had no acute events over night. Pt. endorses breathing improved OBJECTIVE: Vital Signs Period Temp Pulse Resp BP Sys/Holland Pulse Ox Last 24 Hr 97.8 F-98.4 F 62-77 14-20 82-147/56-92 94-97 GENERAL: Intubated, sedated HEAD: Normal with no signs of trauma. EYES: PERRL NECK: Bandaged LUNGS: Breath sounds equal B/L, no wheeze/crackles HEART: Regular rate and rhythm, S1, S2 without murmur, rub or gallop. ABDOMEN: Soft, nontender, nondistended EXTREMITIES: 2+ dorsal pedal pulses, warm, well-perfused, no edema. NEUROLOGICAL: Sedated SKIN: Warm, dry, normal turgor, no rashes or lesions noted Laboratory Results - last 24 hr 02/11/19 02/11/19 06:15 06:15 WBC 10.0 RBC 3.89 L Hgb 12.2 Hct 36.1 MCV 93.0 MCH 31.4 MCHC 33.8 RDW 13.3 Plt Count 295 MPV 8.1 Sodium 139 Potassium 5.3 H Chloride 108 H Carbon Dioxide 28 Anion Gap 3 L BUN 34.3 H Creatinine 1.4 H Est GFR (CKD-EPI)AfAm 60.68 Est GFR (CKD-EPI)NonAf 52.35 Random Glucose 124 H Calcium 8.2 L Active Medications Home Medications Medication Instructions Recorded Albuterol Sulfate Inhaler - 1 puff IH PRN 02/02/19 [Ventolin HFA Inhaler -] Atorvastatin Ca [Lipitor] 10 mg PO HS 02/02/19 Fluticasone/Umeclidin/Vilanter 1 each IH DAILY 02/02/19 [Trelegy Ellipta 100-62.5-25] Oxycodone HCl 15 mg PO Q4H PRN 02/02/19 Clonazepam [Klonopin] 1 mg PO HS 02/05/19 Current Medications Albuterol Sulfate (Ventolin 0.083% Nebulizer Soln -) 1 amp NEB Q4H PRN PRN Reason: SHORT OF BREATH/WHEEZING Chlorhexidine Gluconate (Hibiclens For Decolonization -) 1 applic TP HS [facility] Last Admin: 02/10/19 21:40 Dose: 1 applic Dexamethasone Sodium Phosphate (Decadron Injection -) 10 mg IVPUSH Q8H-IV ROSA Hydromorphone HCl (Dilaudid Vial -) 2 mg IVPB Q6H ROSA Last Admin: 02/11/19 14:03 Dose: Not Given Cefazolin Sodium 1 gm/ (Dextrose) 50 mls @ 100 mls/hr IVPB Q8H-IV ROSA Stop: 02/12/19 01:59 Last Admin: 02/11/19 09:36 Dose: 100 mls/hr Sodium Chloride (Normal Saline -) 1,000 mls @ 75 mls/hr IV ASDIR ROSA Last Admin: 02/11/19 09:32 Dose: 75 mls/hr Propofol (Diprivan -) 1,000,000 mcg in 100 mls @ 17.01 mls/hr IVPB TITR ROSA; Protocol Last Titration: 02/11/19 09:30 Dose: 0 mcg/kg/min, 0 mls/hr Midazolam HCl 100 mg/ Sodium (Chloride) 100 mls @ 1 mls/hr IVPB TITR ROSA; Protocol Last Titration: 02/11/19 09:30 Dose: 0 mg/hr, 0 mls/hr Mupirocin (Bactroban Ointment (For Decolonization) -) 1 applic NS BID [facility]A Stop: 02/15/19 21:59 Last Admin: 02/11/19 09:34 Dose: 1 applic Ondansetron HCl (Zofran Injection) 4 mg IVPUSH Q6H PRN PRN Reason: NAUSEA AND/OR VOMITING Ondansetron HCl (Zofran Injection) 4 mg IVPUSH Q6H PRN PRN Reason: NAUSEA AND/OR VOMITING Oxycodone HCl (Roxicodone -) 15 mg PO Q4H PRN PRN Reason: PAIN LEVEL 7 - 10 Pantoprazole Sodium (Protonix Iv) 40 mg IVPUSH DAILY [facility] Last Admin: 02/11/19 09:32 Dose: 40 mg Polyethylene Glycol (Miralax (For Daily Use) -) 17 gm PO DAILY [facility]A Last Admin: 02/11/19 09:33 Dose: Not Given ASSESSMENT/PLAN: 63M with PMH of spinal stenosis, HLD, COPD/Emphysema, Stage III CKD, Tourette's syndrome, diverticulosis, and BPH, who presented to the emergency department with neck swelling. POD#5: s/p C3-C4 anterior cervical discectomy and instrumented fusion on 02/05 - discharged 02/06 POD#2: s/p I&D anterior cervical spine evacuation of hematoma. POD0#0: s/p repeat I&D due to reaccumulation of hematoma and worsening SOB #Neuro - Pt. extubated today (02/11) - Analgesia: Dilaudid QC TECH, Oxycodone PO - 100ml estimated blood loss during procedure - D/w Dr. Baer Pt. was a very difficult intubation and needed fiberoptic visulaization. Will c/w Decadron 10mg Q8H - Will give C-collar - Physical Therapy #CV - HLD, no active issues - Monitor vitals #Pulm - COPD/Emphysema at baseline, no evidence of active issues - Monitor airway closely - Continue NC for patient comfort - Main SpO2 >90% #Renal - Stage III CKD - Monitor I&Os #ID - Afebrile, Monitor #GI - Diverticulosis, no active issues #PPX - CASIMIRO's, SCDs - Protonix 40mg IV OD - PT/OT/Rehab - OOB #Dispo - Monitor in ICU - Can likely be d/c-ed to M/S in AM per conversation with Dr. Baer if there are not other complications. Visit type - Emergency Visit Emergency Visit: No - New Patient This patient is new to me today: No - Critical Care Critical Care patient: Yes Total Critical Care Time (in minutes): 35 Critical Care Statement: The care of this patient involved high complexity decision making to prevent further life threatening deterioration of the patient 's condition and/or to evaluate & treat vital organ system(s) failure or risk of failure. - Discharge Referral Referred to [facility] Med P.C.: No ATTENDING PHYSICIAN STATEMENT I saw and evaluated the patient. I reviewed the resident's note and discussed the case with the resident. I agree with the resident's findings and plan as documented. SUBJECTIVE: OBJECTIVE: ASSESSMENT AND PLAN:
--- NOTE | 2019-02-11 16:07 | PN ---
Progress Note, Physician History of Present Illness: Patient seen and examined at bedside in the ICU. Patient extubated this morning. Went to OR yesterday for evacuation of neck hematoma and was left intubated and now extubated. Denies nausea vomiting fever chills chest pain sob diarrhea visual changes or voice changes. - Current Medication List Current Medications: Active Medications Albuterol Sulfate (Ventolin 0.083% Nebulizer Soln -) 1 amp NEB Q4H PRN PRN Reason: SHORT OF BREATH/WHEEZING Chlorhexidine Gluconate (Hibiclens For Decolonization -) 1 applic TP HS ROSA Last Admin: 02/10/19 21:40 Dose: 1 applic Dexamethasone Sodium Phosphate (Decadron Injection -) 10 mg IVPUSH Q8H-IV ROSA Hydromorphone HCl (Dilaudid Vial -) 2 mg IVPB Q6H [facility]A Last Admin: 02/11/19 14:03 Dose: Not Given Cefazolin Sodium 1 gm/ (Dextrose) 50 mls @ 100 mls/hr IVPB Q8H-IV ROSA Stop: 02/12/19 01:59 Last Admin: 02/11/19 09:36 Dose: 100 mls/hr Sodium Chloride (Normal Saline -) 1,000 mls @ 75 mls/hr IV ASDIR ROSA Last Admin: 02/11/19 09:32 Dose: 75 mls/hr Propofol (Diprivan -) 1,000,000 mcg in 100 mls @ 17.01 mls/hr IVPB TITR ROSA; Protocol Last Titration: 02/11/19 09:30 Dose: 0 mcg/kg/min, 0 mls/hr Midazolam HCl 100 mg/ Sodium (Chloride) 100 mls @ 1 mls/hr IVPB TITR ROSA; Protocol Last Titration: 02/11/19 09:30 Dose: 0 mg/hr, 0 mls/hr Mupirocin (Bactroban Ointment (For Decolonization) -) 1 applic NS BID [facility]A Stop: 02/15/19 21:59 Last Admin: 02/11/19 09:34 Dose: 1 applic Ondansetron HCl (Zofran Injection) 4 mg IVPUSH Q6H PRN PRN Reason: NAUSEA AND/OR VOMITING Ondansetron HCl (Zofran Injection) 4 mg IVPUSH Q6H PRN PRN Reason: NAUSEA AND/OR VOMITING Oxycodone HCl (Roxicodone -) 15 mg PO Q4H PRN PRN Reason: PAIN LEVEL 7 - 10 Pantoprazole Sodium (Protonix Iv) 40 mg IVPUSH DAILY [facility] Last Admin: 02/11/19 09:32 Dose: 40 mg Polyethylene Glycol (Miralax (For Daily Use) -) 17 gm PO DAILY [facility] Last Admin: 02/11/19 09:33 Dose: Not Given - Objective Vital Signs: Vital Signs Temperature 97.8 F 02/10/19 20:35 Pulse Rate 77 02/11/19 12:49 Respiratory Rate 14 02/11/19 09:00 Blood Pressure 97/65 02/11/19 09:00 O2 Sat by Pulse Oximetry (%) 97 02/11/19 12:49 Constitutional: Yes: Well Nourished, No Distress, Calm Eyes: Yes: Conjunctiva Clear HENT: No: Hoarseness Neck: Yes: Other (slightly tender over incision. Neck hematoma significantly decreased from yesterday.) Cardiovascular: Yes: Regular Rate and Rhythm. No: Murmur Respiratory: Yes: Regular, CTA Bilaterally Gastrointestinal: Yes: Soft. No: Distention, Tenderness, Rebound Musculoskeletal: Yes: WNL Extremities: Yes: WNL Wound/Incision: Yes: Clean/Dry Neurological: Yes: Alert, Oriented ...Motor Strength: WNL Psychiatric: Yes: Alert, Oriented Labs: CBC, BMP 02/11/19 06:15 02/11/19 06:15 INR, PTT INR 1.19 (0.83-1.09) H 02/09/19 05:40 Impression/Plan Impression/Plan: 63M with PMH spinal stenosis POD#6 s/p C3-C4 anterior cervical discectomy and instrumented fusion , HLD, COPD/Emphysema, Stage III CKD, Tourette's syndrome, diverticulosis, and BPH, who presented to the ED with neck swelling after initial surgery on 02/05 complicated by neck hematoma day s/p drainage 3 days ago on 02/08/19 and re-accumulated POD#1 repeat neck hematoma evacuation with drain placement. neck hematoma after C3-C4 ACDF via anterior neck approach 6 days ago s/p drainage 3 days ago complicated by re-accumulation now POD#1 s/p evacuation of neck hematoma with drain placement. Pain control NPO IVF trend CBC Stable COPD-Stable. clear lungs. no cough or sputum production continue bronchodilators and home meds-ventolin nebs PRN, anoro BID, asmanex Continue klonopin for tourettes Statin for HLD D/C anticipated in 24-48 hours depending on post op course Visit type - Emergency Visit Emergency Visit: Yes ED Registration Date: 02/08/19 Care time: The patient presented to the Emergency Department on the above date and was hospitalized for further evaluation of their emergent condition. - New Patient This patient is new to me today: No - Critical Care Critical Care patient: Yes Total Critical Care Time (in minutes): 36 Critical Care Statement: The care of this patient involved high complexity decision making to prevent further life threatening deterioration of the patient 's condition and/or to evaluate & treat vital organ system(s) failure or risk of failure.
--- NOTE | 2019-02-11 16:08 | PN ---
Progress Note (short form) - Note Progress Note: POD#1 ICU Extubated Comfortable in all respects Apyrexial Vitals stable as per charts Voice Raspy Swallowing uncomplicated Wound dry Drain in situ Neuro Feeling much improved CVS Stable perfusing well RESP COPD Stable Sats stable and maintained ABD Soft ASSES Neuro improving more each day Neck All stable Minimal drainage Appears serous PLAN D/C from ICU tomorrow to floor Continue med Mx and pain Mx PT moilize FWBAT Diet soft Drain will be removed HELGA
[2019-02-11] MEDS ORDERED: HYDROmorphone HCL CARPU-JECT 2 MG/1 ML DISP.SYRIN IVPUSH ONE (18:39)
[2019-02-11] MEDS ORDERED: LABETALOL HCL 5 MG/1 ML (100MG/20 ML VIAL) IVPUSH ONE (19:06)
[2019-02-11] MEDS: HYDROmorphone HCl 2 MG/ML VIAL IVPB PRN (19:12)
[2019-02-11] MEDS: CHLORHEXIDINE GLUCONATE 4% CLEANSER FOR DECOLONIZATION TP SCH (21:35)
[2019-02-12] MEDS ORDERED: MELATONIN 5 MG TABLETS PO ONE (02:10)
[2019-02-12] MEDS ORDERED: ceFAZolin SODIUM 1 GM VIAL ONE (03:19)
[2019-02-12] MEDS ORDERED: DEXTROSE 5%-WATER - 50 ML IVPB ONE (03:19)
[2019-02-12] MEDS: DEXAMETHASONE SOD PHOSPHATE 10 MG/1 ML VIAL IVPUSH SCH ×3 (03:31→17:31)
[2019-02-12] MEDS: PROPOFOL 1,000,000 MCG/100 ML VIAL IVPB SCH (03:33)
--- NOTE | 2019-02-12 07:32 | PN ---
Physical Exam: SUBJECTIVE: Patient seen and examined by the bedside. Complained of mild chest pain that lasted for 5 minutes. OBJECTIVE: Vital Signs Period Temp Pulse Resp BP Sys/Holland Pulse Ox Last 24 Hr 98.8 F 61-83 12-22 97-155/64-91 94-97 GENERAL: AOx3, pleasant, alert, and cooperative HEAD: Normal with no signs of trauma NECK: bandaged in midline EYES: PERRL, EOMI LUNGS: Clear B/L, no wheeze/crackles HEART: Regular rate and rhythm, S1, S2 without murmur, rub or gallop. ABDOMEN: Soft, nontender, nondistended EXTREMITIES: 2+ pulses, warm, well-perfused, no edema. NEUROLOGICAL: Sedated SKIN: Warm, dry, normal turgor, no rashes or lesions noted Laboratory Results - last 24 hr 02/11/19 02/11/19 06:15 06:15 WBC 10.0 RBC 3.89 L Hgb 12.2 Hct 36.1 MCV 93.0 MCH 31.4 MCHC 33.8 RDW 13.3 Plt Count 295 MPV 8.1 Sodium 139 Potassium 5.3 H Chloride 108 H Carbon Dioxide 28 Anion Gap 3 L BUN 34.3 H Creatinine 1.4 H Est GFR (CKD-EPI)AfAm 60.68 Est GFR (CKD-EPI)NonAf 52.35 Random Glucose 124 H Calcium 8.2 L Active Medications Generic Name Dose Route Start Last Admin Trade Name Freq PRN Reason Stop Dose Admin Albuterol Sulfate 1 amp 02/10/19 20:04 Ventolin 0.083% Nebulizer Soln - NEB Q4H PRN SHORT OF BREATH/WHEEZING Chlorhexidine Gluconate 1 applic 02/10/19 22:00 02/11/19 21:35 Hibiclens For Decolonization - TP 1 applic HS ROSA Administration Dexamethasone Sodium Phosphate 10 mg 02/11/19 18:00 02/12/19 03:31 Decadron Injection - IVPUSH 10 mg Q8H-IV ROSA Administration Hydromorphone HCl 2 mg 02/11/19 18:40 02/11/19 19:12 Dilaudid Vial - IVPB 2 mg Q6H PRN Administration PAIN LEVEL 7 - 10 Propofol 1,000,000 mcg in 100 mls @ 17.01 mls/hr 02/10/19 20:15 02/12/19 03: 33 Diprivan - IVPB Not Given TITR ROSA Protocol 25 MCG/KG/MIN Mupirocin 1 applic 02/10/19 22:00 02/11/19 21:35 Bactroban Ointment (For Decolonization) - NS 02/15/19 21:59 1 applic BID ROSA Administration Ondansetron HCl 4 mg 02/10/19 20:04 Zofran Injection IVPUSH Q6H PRN NAUSEA AND/OR VOMITING Ondansetron HCl 4 mg 02/10/19 20:04 Zofran Injection IVPUSH Q6H PRN NAUSEA AND/OR VOMITING Oxycodone HCl 15 mg 02/10/19 20:04 Roxicodone - PO Q4H PRN PAIN LEVEL 7 - 10 Pantoprazole Sodium 40 mg 02/11/19 10:00 02/11/19 09:32 Protonix Iv IVPUSH 40 mg DAILY ROSA Administration Polyethylene Glycol 17 gm 02/11/19 10:00 02/11/19 09:33 Miralax (For Daily Use) - PO Not Given DAILY ROSA ASSESSMENT/PLAN: 63M with PMH of spinal stenosis, HLD, COPD/Emphysema, Stage III CKD, Tourette's syndrome, diverticulosis, and BPH, who presented to the emergency department with neck swelling. POD#7: s/p C3-C4 anterior cervical discectomy and instrumented fusion on 02/05 - discharged 02/06 POD#4: s/p I&D anterior cervical spine evacuation of hematoma. POD0#2: s/p repeat I&D due to reaccumulation of hematoma and worsening SOB #Neuro - Pt. extubated 02/12 - Analgesia: Dilaudid IVPB, Oxycodone PO - Minimal serous wound drainage, drain to be removed 02/13 - Difficult intubation with fiberoptic visulaization. Will c/w Decadron 10mg Q8H to minimize edema - On C-collar, continue PT #CVS - Complained of chest pain that lasted 5 minutes. Primary team informed - EKG was normal sinus rhythm with prolonged RI of 0.218 seconds, no ST or T wave changes - Trops today 0.32, add on Trop for yesterdays lab showed Trop 0.02 - Hx of HLD - Cardiac monitoring #Pulm - COPD/Emphysema at baseline, no evidence of active issues - Monitor airway closely - Continue NC for patient comfort - Main SpO2 >90% #Renal - Stage III CKD - Monitor I&Os #ID - Afebrile, Monitor #GI - Diverticulosis, no active issues - Zofran PRN for nausea #FEN - Soft Diet #PPX - CASIMIRO's, SCDs - Protonix 40mg IV OD - PT/OT/Rehab - OOB #Dispo - D/C to floors today, as per Dr. Baer's instructions. Will change transfer orders to Tele Visit type - Emergency Visit Emergency Visit: Yes ED Registration Date: 02/08/19 Care time: The patient presented to the Emergency Department on the above date and was hospitalized for further evaluation of their emergent condition. - New Patient This patient is new to me today: No - Critical Care Critical Care patient: Yes Total Critical Care Time (in minutes): 39 Critical Care Statement: The care of this patient involved high complexity decision making to prevent further life threatening deterioration of the patient 's condition and/or to evaluate & treat vital organ system(s) failure or risk of failure. ATTENDING PHYSICIAN STATEMENT I saw and evaluated the patient. I reviewed the resident's note and discussed the case with the resident. I agree with the resident's findings and plan as documented. SUBJECTIVE: OBJECTIVE: ASSESSMENT AND PLAN:
[2019-02-12 07:40] LABS: HEMATOCRIT 37.7 % (35.4-49); HEMOGLOBIN 12.6 GM/dL (11.7-16.9); MCH 30.7 pg (25.7-33.7); MCHC 33.4 g/dl (32.0-35.9); MEAN CELL VOLUME 91.8 fl (80-96); PLATELET COUNT 312 K/MM3 (134-434); RBC 4.11 M/mm3 (4.00-5.60); RDW 12.9 % (11.9-15.9); WHITE BLOOD COUNT 19.8 K/mm3 (4.0-10.0)
--- NOTE | 2019-02-12 08:20 | PN ---
Progress Note (short form) - Note Progress Note: ORTHOPAEDIC SPINE SURGERY POD #2 s/p I&D (hematoma evacuation) anterior cervical spine w/ inspection of fusion mass Note: Patient had C3-C4 ACDF 11/. Was taken back to OR POD #3 due to expanding hematoma --> I&D washout & SATISH drain. Patient seen and examined at bedside. Alert. Recovering as expected. C/o mild incisional tenderness. Adequate pain control w/ medication ordered. Has non-productive cough (COPD). Denies n/v/f/c, CP, palpitations, SOB or CONNOR. Last Vital Signs Temp Pulse Resp BP Pulse Ox 98.8 F 61 14 114/71 95 02/12/19 05:00 02/12/19 05:00 02/12/19 05:00 02/12/19 05:00 02/11/19 21:00 CBC 02/11/19 06:15 Cervical Drain 02/09/19 02/09/19 02/11/19 06:00 13:35 07:02 Hemovac 30 20 0 Gen: nad Neck: trach midline. drain on suction with signs of thinning out. no hematoma. Neuro: gmnvi in all extrem LE: scds bilat. soft. nt. neg edema/swelling Problem List - Problems (1) Hematoma of neck Assessment/Plan: POD #3 Downgrade to floor OOB and ambulate Wear c-collar prn Pain management Possible DC drain in AM Dressing changed on rounds Above plan discussed with Dr. Srinivasa Baer and agrees. Code(s): S10.93XA - CONTUSION OF UNSPECIFIED PART OF NECK, INITIAL ENCOUNTER Qualifiers: Encounter type: initial encounter Qualified Code(s): S10.93XA - Contusion of unspecified part of neck, initial encounter (2) S/P cervical spinal fusion Code(s): Z98.1 - ARTHRODESIS STATUS
--- NOTE | 2019-02-12 08:33 | PN ---
Progress Note (short form) - Note Progress Note: POD#2 ICU Comfortable in all respects Apyrexial Vitals stable as per charts Voice Decreased voice change improving Swallowing uncomplicated Wound dry Drain in situ Neuro Feeling much improved CVS Stable perfusing well RESP COPD Stable Sats stable and maintained ABD Soft ASSES Neuro improving more each day Neck All stable Minimal drainage Appears serous Not PLAN D/C from ICU to floor Continue med Mx and pain Mx PT moilize FWBAT Diet soft Drain will be removed HELGA
[2019-02-12] MEDS ORDERED: PANTOPRAZOLE SODIUM 40 MG VIAL IVPUSH ONE (09:15)
[2019-02-12] MEDS ORDERED: LIDOCAINE VISCOUS 2% ORAL/TOP 20 ML UNIT-DOSE CUP MM ONE (09:15)
[2019-02-12] MEDS ORDERED: MAG HYDROX/AL HYDROX/SIMETH 30 ML UNIT-DOSE CUP PO ONE (09:15)
--- NOTE | 2019-02-12 09:16 | PN ---
Progress Note (short form) - Note Progress Note: Hospitalist Medicine Evaluated in the ICU. Without complaint. s/p hematoma evac #2 (PO day1). resting comfortably, has been passing flatus. Has not been OOB yet today. For transfer to floor. Drain removal tomorrow. Vitals 02/12/19 05:00 Temperature 98.8 F Pulse Rate 61 Respiratory 14 Rate Blood Pressure 114/71 Physical Exam general: pleasant. in NAD. +raspy voice HEENT: NCAT, PERRLA. uvula visualized neck: +with gauze, improved edema cardio: s1, s2 rrr. no r/m/g pulm: cta b/l. no accessory m usage abdomen: soft, obese, nontender, nondistended LE: 2+ pt pulses, no edema +hemovac, w/ drainage Laboratory Tests 02/12/19 06:19 WBC 19.8 H Hgb 12.6 Hct 37.7 Plt Count 312 Microbiology 02/10/19 18:50 Neck Gram Stain - Final Soft tissue neck XR: +soft tissue air 02/10: CXR: ETT with tip well above sofia at level of clavicular heads. lungs clear. prominent mediastinum Assessment/plan 63 y/o old M with a PMH spinal stenosis (s/p C3-C4 anterior cervical discectomy and instrumented fusion on 02/05), HLD, COPD/Emphysema, Stage III CKD, Tourette' s syndrome, diverticulosis, and BPH, who presented to the ED with neck swelling. Received hematoma evacuation x 2. Currently post-op day1. #Neck hematoma s/p recent C3-C4 ACDF sx x 2 PO day 1 -incentive spirometer -PT, OOB as tolerated -elevate HOB -drain for removal tomorrow -dilaudid 2mg q6h PRN, bharat 15mg q4h PRN -c/w dexamethasone 10mg q8h -c/w miralax -c-collar PRN per sx -transfer to floor from ICU -Sx: Dr. Baer #Elevated troponin -0.02> 0.32 -improved chest pain -may be 2/2 demand from sx -Cardio: Dr. Erickson #COPD -currently not in exacerbation -c/w ventolin nebs PRN, anoro BID, asmanex - home inhaler is not formulary -NC 02 as needed -goal sat 88-92% #Stage 3 CKD -stable; monitor #Tourette's -c/w klonopin #F/E/N off IVF continue to follow lytes soft diet, advance as tolerated #PPX DVT: SCD's #Dispo Drain for removal tomorrow anticipate d/c 24hrs, depending on post-op course, sx recs <Riri Moreira - Last Filed: 02/12/19 18:36> - Note Progress Note: Seen and examined; discussed at length with resident team and indicated consultants. Independently reviewed all murphy historical, PE, diagnostic, and imaging findings. Agree with above documentation and assessment and plan as documented by resident aside from as supplemented below. Seen and examined; s/p hematoma exacuation #2. No complaints, voice normal, no bleeding 10 sys ROS done and negative aside from HPI VS labs imaging reviewed NAD, AAO resting in bed Trachea midline with overlying surgical dressing c/d/i with associated fullness underlying it but no acute bleeding. NC AT EOMI PERRLA Wheezes throughout bilaterally but present air motion, w/ sym exp HR wnl +s1/2 NT ND +BS CN2-12 wnl, no progressive neuro sx Normal mood, appropriate behavior A/P: Presented with postoperative hematoma; today with chest pain and tachycardia with WBC to 19. Checking CT chest, repeating EKG, troponin -Chest pain -NSTEMI (type I vs II; trend trop, EKG w/o acute changes, consult CV, no ASA at this point) -Postoperative hematoma s/p drainage -CKD-IV -Tourette's Disorder (c/w clonazepam) -Chronic neck pain s/p cervical discectomy (due to underlying cervical spinal stenosis, continue with current pain regimine and has home pain meds available as well). -COPD not in exacerbation Full Code <Servando Alonso - Last Filed: 02/13/19 12:20>
[2019-02-12] MEDS: PANTOPRAZOLE SODIUM 40 MG VIAL IVPUSH SCH (09:58)
[2019-02-12] MEDS: MUPIROCIN 2% TOPICAL OINTMENT FOR DECOLONIZATION NS SCH (09:58)
[2019-02-12] MEDS: HYDROmorphone HCl 2 MG/ML VIAL IVPB PRN (09:59)
[2019-02-12] MEDS: POLYETHYLENE GLYCOL 3350 119 GM BTL PO SCH (10:01)
[2019-02-12 12:15] VITALS: BMI 28.8
--- NOTE | 2019-02-12 12:48 | PN ---
Teaching Attending Note Name of Resident: Brain Rodgers ATTENDING PHYSICIAN STATEMENT I saw and evaluated the patient. I reviewed the resident's note and discussed the case with the resident. I agree with the resident's findings and plan as documented. SUBJECTIVE: Pt seen and examined in the ICU. Extubated yesterday without incident. Denies shortness of breath. Tolerating PO. OBJECTIVE: Vital Signs Period Temp Pulse Resp BP Sys/Holland Pulse Ox Last 24 Hr 98.6 F-98.8 F 61-110 14-22 108-155/64-98 95-97 Intake & Output 02/09/19 02/10/19 02/11/19 02/12/19 23:59 23:59 23:59 23:59 Intake Total 1850 1841 Output Total 50 500 1400 Balance -50 1350 441 Weight 110.7 kg 110.223 kg Gen: NAD at rest Heart: RRR Lung: decreased breath sounds at the bases Abd: soft, nontender Ext: no edema CBC, BMP 02/12/19 06:19 02/11/19 06:15 Active Medications Albuterol Sulfate (Ventolin 0.083% Nebulizer Soln -) 1 amp NEB Q4H PRN PRN Reason: SHORT OF BREATH/WHEEZING Chlorhexidine Gluconate (Hibiclens For Decolonization -) 1 applic TP HS ROSA Last Admin: 02/11/19 21:35 Dose: 1 applic Dexamethasone Sodium Phosphate (Decadron Injection -) 10 mg IVPUSH Q8H-IV ROSA Last Admin: 02/12/19 09:58 Dose: 10 mg Hydromorphone HCl (Dilaudid Vial -) 2 mg IVPB Q6H PRN PRN Reason: PAIN LEVEL 7 - 10 Last Admin: 02/12/19 09:59 Dose: 2 mg Mupirocin (Bactroban Ointment (For Decolonization) -) 1 applic NS BID ROSA Stop: 02/15/19 21:59 Last Admin: 02/12/19 09:58 Dose: 1 applic Ondansetron HCl (Zofran Injection) 4 mg IVPUSH Q6H PRN PRN Reason: NAUSEA AND/OR VOMITING Ondansetron HCl (Zofran Injection) 4 mg IVPUSH Q6H PRN PRN Reason: NAUSEA AND/OR VOMITING Oxycodone HCl (Roxicodone -) 15 mg PO Q4H PRN PRN Reason: PAIN LEVEL 7 - 10 Pantoprazole Sodium (Protonix Iv) 40 mg IVPUSH DAILY [facility] Last Admin: 02/12/19 09:58 Dose: 40 mg Polyethylene Glycol (Miralax (For Daily Use) -) 17 gm PO DAILY [facility] Last Admin: 02/12/19 10:01 Dose: Not Given ASSESSMENT AND PLAN: s/p Hematoma Evacuation x 2 Cervical Spinal Stenosis COPD/Emphysema Stage III CKD Tourette's syndrome Diverticulosis Hyperlipidemia BPH - pain control - incentive spirometry - monitor drain output - on steroids per surgery - O2 to keep SpO2 >90% - PO as tolerated - DVT prophylaxis
--- NOTE | 2019-02-12 14:02 | CON.CARD ---
Consult - Alcohol/Substance Use Hx Alcohol Use: No (rarely) - Smoking History Smoking history: Never smoked Have you smoked in the past 12 months: Yes Aproximately how many cigarettes per day: 20 If you are a former smoker, when did you quit?: 2 weeks ago 2019 Home Medications - Allergies Allergies/Adverse Reactions: Allergies Allergy/AdvReac Type Severity Reaction Status Date / Time No Known Allergies Allergy Verified 02/08/19 13:39 - Home Medications Home Medications: Ambulatory Orders Albuterol Sulfate Inhaler - [Ventolin HFA Inhaler -] 1 puff IH PRN 02/02/19 Atorvastatin Ca [Lipitor] 10 mg PO HS 02/02/19 Fluticasone/Umeclidin/Vilanter [Trelegy Ellipta 100-62.5-25] 1 each IH DAILY Oxycodone HCl 15 mg PO Q4H PRN 02/02/19 Clonazepam [Klonopin] 1 mg PO HS 02/05/19 Vital Signs: Vital Signs Temperature 98.6 F 02/12/19 09:00 Pulse Rate 110 H 02/12/19 09:00 Respiratory Rate 16 02/12/19 09:00 Blood Pressure 155/98 02/12/19 09:00 O2 Sat by Pulse Oximetry (%) 96 02/12/19 09:00 - Other Data Labs, Other Data: CBC, BMP 02/12/19 06:19 02/11/19 06:15 INR, PTT INR 1.19 (0.83-1.09) H 02/09/19 05:40 Troponin, BNP 02/11/19 02/12/19 06:15 10:00 Troponin I < 0.02 0.32 H Troponin, BNP 02/11/19 02/12/19 06:15 10:00 Troponin I < 0.02 0.32 H Assessment/Plan s/p Hematoma Evacuation x 2 Cervical Spinal Stenosis COPD/Emphysema Stage III CKD Tourette's syndrome Diverticulosis Hyperlipidemia BPH
--- NOTE | 2019-02-12 14:05 | CON.CARD ---
Consult Consult Specialty:: Cardiology - History of Present Illness History of Present Illness: The patient is a 63 year old male, with a significant past medical history of spinal stenosis (s/p C3-C4 anterior cervical discectomy and instrumented fusion on 02/05), HLD, COPD/Emphysema, Stage III CKD, Tourette's syndrome, diverticulosis, and BPH, who presents to the emergency department with neck swelling. As per patient, he recently had C3-C4 anterior cervical discectomy and instrumented fusion on 4 days ago (02/05) and was discharged the following day. Patient was evaluated at [facility] and followed up with his surgeon Dr. Baer earlier today at which time he was advised to report to the ED for admission for surgery secondary to a hematoma this afternoon. Patient endorses voice changes since his surgery but, denies any changes in voice throughout the course of the past 4 days. He denies any recent fevers, chills, headache or dizziness. He denies any recent nausea, vomiting, diarrhea or constipation. He denies any recent chest pain or shortness of breath. He denies any recent dysuria, frequency, urgency or hematuria. Allergies: NKDA Primary Care Physician: Dr. Stock[facility] - History Source History Provided By: Patient, Medical Record - Alcohol/Substance Use Hx Alcohol Use: No (rarely) - Smoking History Smoking history: Never smoked Have you smoked in the past 12 months: Yes Aproximately how many cigarettes per day: 20 If you are a former smoker, when did you quit?: 2 weeks ago 2019 Home Medications - Allergies Allergies/Adverse Reactions: Allergies Allergy/AdvReac Type Severity Reaction Status Date / Time No Known Allergies Allergy Verified 02/08/19 13:39 - Home Medications Home Medications: Ambulatory Orders Albuterol Sulfate Inhaler - [Ventolin HFA Inhaler -] 1 puff IH PRN 02/02/19 Atorvastatin Ca [Lipitor] 10 mg PO HS 02/02/19 Fluticasone/Umeclidin/Vilanter [Trelegy Ellipta 100-62.5-25] 1 each IH DAILY Oxycodone HCl 15 mg PO Q4H PRN 02/02/19 Clonazepam [Klonopin] 1 mg PO HS 02/05/19 Review of Systems - Review of Systems Constitutional: reports: No Symptoms Eyes: reports: No Symptoms HENT: reports: No Symptoms Neck: reports: No Symptoms Cardiovascular: reports: No Symptoms Gastrointestinal: reports: No Symptoms Genitourinary: reports: No Symptoms Breasts: reports: No Symptoms Reported Musculoskeletal: reports: No Symptoms Integumentary: reports: No Symptoms Neurological: reports: No Symptoms Endocrine: reports: No Symptoms Hematology/Lymphatic: reports: No Symptoms Psychiatric: reports: No Symptoms Vital Signs: Vital Signs Temperature 98.6 F 02/12/19 09:00 Pulse Rate 110 H 02/12/19 09:00 Respiratory Rate 16 02/12/19 09:00 Blood Pressure 155/98 02/12/19 09:00 O2 Sat by Pulse Oximetry (%) 96 02/12/19 09:00 Constitutional: Yes: Well Nourished, No Distress, Calm Eyes: Yes: WNL, Conjunctiva Clear, EOM Intact HENT: Yes: WNL, Atraumatic, Normocephalic Neck: Yes: WNL, Supple, Trachea Midline Respiratory: Yes: WNL, Regular, CTA Bilaterally Gastrointestinal: Yes: WNL, Normal Bowel Sounds Renal/: Yes: WNL Cardiovascular: Yes: WNL, Regular Rate and Rhythm Musculoskeletal: Yes: WNL Extremities: Yes: WNL Integumentary: Yes: WNL ...Motor Strength: WNL Psychiatric: Yes: WNL, Alert, Oriented - Other Data Labs, Other Data: CBC, BMP 02/12/19 06:19 02/11/19 06:15 INR, PTT INR 1.19 (0.83-1.09) H 02/09/19 05:40 Troponin, BNP 02/11/19 02/12/19 06:15 10:00 Troponin I < 0.02 0.32 H Troponin, BNP 02/11/19 02/12/19 06:15 10:00 Troponin I < 0.02 0.32 H Problem List - Problems (1) Hematoma of neck Code(s): S10.93XA - CONTUSION OF UNSPECIFIED PART OF NECK, INITIAL ENCOUNTER Qualifiers: Encounter type: initial encounter Qualified Code(s): S10.93XA - Contusion of unspecified part of neck, initial encounter (2) S/P cervical spinal fusion Code(s): Z98.1 - ARTHRODESIS STATUS (3) Spinal stenosis, cervical region Code(s): M48.02 - SPINAL STENOSIS, CERVICAL REGION (4) Status post spinal surgery Code(s): Z98.890 - OTHER SPECIFIED POSTPROCEDURAL STATES Assessment/Plan spinal stenosis (s/p C3-C4 anterior cervical discectomy and instrumented fusion on 02/05), HLD, COPD/Emphysema, Stage III CKD, Tourette's syndrome, diverticulosis, and BPH, stable s/p neck hematoma ecacuation. ECHO nl ef AR 4.1 cm Plan; cont present rx risk staratification e.g stress test as the outpatient. Keeep LDL below 100 dvt plx
--- NOTE | 2019-02-12 15:32 | ECHO ---
Name: KEVIN MENDOZA Exam:Adult Echocardiogram Study Date: 02/12/2019 01:35 PM Age: 63 yrs Reason For Study: chest pain Height: 77 in Weight: 243 lb BSA: 2.4 m2 MMode/2D Measurements & Calculations IVSd: 0.85 cm Ao root diam: 4.1 cm LVIDd: 4.8 cm LA dimension: 3.8 cm LVIDs: 2.8 cm ACS: 1.8 cm LVPWd: 1.1 cm IVSs: 1.0 cm LVPWs: 1.3 cm EDV(Teich): 105.4 ml ESV(Teich): 29.1 ml Doppler Measurements & Calculations MV E max iliana: 95.8 cm/sec Ao V2 max: 156.4 cm/sec MV A max iliana: 72.3 cm/sec Ao max P.8 mmHg MV E/A: 1.3 Ao V2 mean: 109.5 cm/sec Ao mean P.4 mmHg Ao V2 VTI: 32.4 cm Med Peak E' Iliana: 6.9 cm/sec Med E/e': 13.8 Lat Peak E' Iliana: 12.3 cm/sec Lat E/e': 7.8 Procedure A complete two-dimensional transthoracic echocardiogram was performed (2D, M-mode, Doppler and color flow Doppler). Technically limited study. Left Ventricle The left ventricle is normal in size. Left ventricular systolic function is normal. Ejection Fraction = 65- 70%. No regional wall motion abnormalities noted. Right Ventricle The right ventricle is normal size. The right ventricular systolic function is normal. Atria The left atrial size is normal. Right atrial size is normal. Mitral Valve The mitral valve is normal in structure and function. There is no mitral regurgitation noted. Tricuspid Valve The tricuspid valve is normal in structure and function. No tricuspid regurgitation. Aortic Valve There is mild aortic sclerosis.;. No aortic regurgitation is present. Pulmonic Valve The pulmonic valve is not well visualized. Great Vessels Moderate aortic root dilatation. Pericardium/Pleura There is no pericardial effusion. Interpretation Summary Technically limited study The left ventricle is normal in size. Left ventricular systolic function is normal. No regional wall motion abnormalities noted. Ejection Fraction = 65-70%. The right ventricular systolic function is normal. The left atrial size is normal. Right atrial size is normal. There is mild aortic sclerosis. No significant valvular regurgitations are seen Moderate aortic root dilatation. There is no pericardial effusion. Anand Bowman MD 02/12/2019 03:31 PM
--- NOTE | 2019-02-12 15:52 | EKG ---
Test Reason : Blood Pressure : / mmHG Vent. Rate : 064 BPM Atrial Rate : 064 BPM P-R Int : 218 ms QRS Dur : 098 ms QT Int : 404 ms P-R-T Axes : 072 056 063 degrees QTc Int : 416 ms SINUS RHYTHM WITH 1ST DEGREE A-V BLOCK OTHERWISE NORMAL ECG WHEN COMPARED WITH ECG OF 12-FEB-2019 09:46, NO SIGNIFICANT CHANGE WAS FOUND Confirmed by OLIVA BRAMBILA, FREDDY ([id number]) on 02/12/2019 3:51:54 PM Referred By: GABO GIBSON Confirmed By:FREDDY BAPTISTE MD
--- NOTE | 2019-02-12 15:56 | EKG ---
Test Reason : Blood Pressure : / mmHG Vent. Rate : 075 BPM Atrial Rate : 075 BPM P-R Int : 218 ms QRS Dur : 098 ms QT Int : 384 ms P-R-T Axes : 065 056 057 degrees QTc Int : 428 ms SINUS RHYTHM WITH 1ST DEGREE A-V BLOCK SEPTAL INFARCT , AGE UNDETERMINED ABNORMAL ECG WHEN COMPARED WITH ECG OF 06-FEB-2019 00:09, T WAVE VARIATION Confirmed by OLIVA BRAMBILA, FREDDY ([id number]) on 02/12/2019 3:56:10 PM Referred By: YURI VALENTE DR Confirmed By:FREDDY BAPTISTE MD
[2019-02-12 16:13] LABS: CHOLESTEROL 180 mg/dL (50-200); HDL CHOLESTEROL 44 mg/dL (40-60); LDL CHOLESTEROL (ONLY SJRH) 110 mg/dL (5-100); TRIGLYCERIDES 137 mg/dL (0-150)
[2019-02-12 16:21] LABS: BLOOD UREA NITROGEN 34.6 mg/dL (7-18); CALCIUM 8.6 mg/dL (8.5-10.1); CREATININE 1.1 mg/dL (0.55-1.3); POTASSIUM 4.6 mmol/L (3.5-5.1)
[2019-02-12] MEDS ORDERED: HYDROmorphone HCl 2 MG/ML VIAL IVPB PRN (19:39)
[2019-02-12] MEDS ORDERED: oxyCODONE HCL 5 MG TABLET PO PRN (19:39)
[2019-02-12] MEDS ORDERED: ONDANSETRON 4 MG/2 ML VIAL IVPUSH PRN ×2 (19:39)
[2019-02-12] MEDS ORDERED: ALBUTEROL SO4 0.083% IH SOL 2.5 MG/3 ML VIAL.NEB. NEB PRN (19:39)
[2019-02-12] MEDS: DOCUSATE SODIUM 100 MG CAPSULE (FP) PO SCH (22:17)
[2019-02-12] MEDS ORDERED: SIMETHICONE 80 MG TAB.CHEW (FP) PO PRN (23:32)
[2019-02-12] MEDS: SENNOSIDES 8.6MG TABLET (FP) PO SCH (23:44)
[2019-02-13] MEDS: DEXAMETHASONE SOD PHOSPHATE 10 MG/1 ML VIAL IVPUSH SCH ×3 (01:53→18:11)
[2019-02-13 07:12] LABS: BASO % 0.3 % (0-2.0); HEMATOCRIT 39.8 % (35.4-49); HEMOGLOBIN 13.4 GM/dL (11.7-16.9); LYMPH % 4.3 % (8-40); MCH 30.8 pg (25.7-33.7); MCHC 33.8 g/dl (32.0-35.9); MEAN CELL VOLUME 91.3 fl (80-96); MONO % 3.3 % (3.8-10.2); NEUT % 92.1 % (42.8-82.8); PLATELET COUNT 318 K/MM3 (134-434); RBC 4.36 M/mm3 (4.00-5.60); RDW 13.1 % (11.9-15.9); WHITE BLOOD COUNT 19.3 K/mm3 (4.0-10.0)
[2019-02-13 07:29] LABS: BLOOD UREA NITROGEN 33.2 mg/dL (7-18); CALCIUM 8.4 mg/dL (8.5-10.1); CREATININE 1.1 mg/dL (0.55-1.3); POTASSIUM 4.5 mmol/L (3.5-5.1)
[2019-02-13 10:06] LABS: PLATELET ESTIMATE NORMAL
[2019-02-13] MEDS: DOCUSATE SODIUM 100 MG CAPSULE (FP) PO SCH ×2 (10:18→23:30)
[2019-02-13] MEDS: POLYETHYLENE GLYCOL 3350 119 GM BTL PO SCH (10:18)
--- NOTE | 2019-02-13 10:28 | PN ---
Progress Note, Physician History of Present Illness: PULMONARY ALERT,COMFORTABLE,-SOB,-CP - Current Medication List Current Medications: Active Medications Albuterol Sulfate (Ventolin 0.083% Nebulizer Soln -) 1 amp NEB Q4H PRN PRN Reason: SHORT OF BREATH/WHEEZING Dexamethasone Sodium Phosphate (Decadron Injection -) 10 mg IVPUSH Q8H-IV [facility] Last Admin: 02/13/19 01:53 Dose: 10 mg Docusate Sodium (Colace -) 100 mg PO BID [facility] Last Admin: 02/13/19 10:18 Dose: 100 mg Hydromorphone HCl (Dilaudid Vial -) 2 mg IVPB Q6H PRN PRN Reason: PAIN LEVEL 7 - 10 Ondansetron HCl (Zofran Injection) 4 mg IVPUSH Q6H PRN PRN Reason: NAUSEA AND/OR VOMITING Ondansetron HCl (Zofran Injection) 4 mg IVPUSH Q6H PRN PRN Reason: NAUSEA AND/OR VOMITING Oxycodone HCl (Roxicodone -) 15 mg PO Q4H PRN PRN Reason: PAIN LEVEL 7 - 10 Pantoprazole Sodium (Protonix Iv) 40 mg IVPUSH DAILY [facility] Polyethylene Glycol (Miralax (For Daily Use) -) 17 gm PO DAILY [facility] Last Admin: 02/13/19 10:18 Dose: 17 grams Senna (Senna -) 1 tab PO HS [facility] Last Admin: 02/12/19 23:44 Dose: 1 tab Simethicone (Mylicon -) 80 mg PO Q4H PRN PRN Reason: CONSTIPATION Last Admin: 02/12/19 23:44 Dose: 80 mg - Objective Vital Signs: Vital Signs Temperature 98.3 F 02/13/19 08:00 Pulse Rate 64 02/13/19 08:00 Respiratory Rate 18 02/13/19 08:00 Blood Pressure 159/101 H 02/13/19 08:00 O2 Sat by Pulse Oximetry (%) 96 02/12/19 21:00 Constitutional: Yes: Well Nourished, Calm Eyes: Yes: WNL HENT: Yes: WNL Neck: Yes: WNL Cardiovascular: Yes: Regular Rate and Rhythm, S1, S2 Respiratory: Yes: CTA Bilaterally Gastrointestinal: Yes: Normal Bowel Sounds, Soft Extremities: Yes: WNL Edema: No Labs: CBC, BMP 02/13/19 06:30 02/13/19 06:30 INR, PTT INR 1.19 (0.83-1.09) H 02/09/19 05:40 Problem List - Problems (1) COPD (chronic obstructive pulmonary disease) Code(s): J44.9 - CHRONIC OBSTRUCTIVE PULMONARY DISEASE, UNSPECIFIED (2) Hematoma of neck Code(s): S10.93XA - CONTUSION OF UNSPECIFIED PART OF NECK, INITIAL ENCOUNTER Qualifiers: Encounter type: initial encounter Qualified Code(s): S10.93XA - Contusion of unspecified part of neck, initial encounter (3) S/P cervical spinal fusion Code(s): Z98.1 - ARTHRODESIS STATUS (4) Status post spinal surgery Code(s): Z98.890 - OTHER SPECIFIED POSTPROCEDURAL STATES (5) Tobacco abuse Code(s): Z72.0 - TOBACCO USE (6) Chronic kidney disease (CKD) Code(s): N18.9 - CHRONIC KIDNEY DISEASE, UNSPECIFIED Assessment/Plan ASSESSMENT AND PLAN: s/p Hematoma Evacuation x 2 Cervical Spinal Stenosis COPD/Emphysema Stage III CKD Tourette's syndrome Diverticulosis Hyperlipidemia BPH - pain control - incentive spirometry - monitor drain output - on steroids per surgery - O2 to keep SpO2 >90% - PO as tolerated - DVT prophylaxis - Low dose chest ct as outpatient for lung cancer screening DR HESTER
[2019-02-13] MEDS: PANTOPRAZOLE SODIUM 40 MG VIAL IVPUSH SCH (11:10)
--- NOTE | 2019-02-13 11:16 | PN ---
Progress Note, Physician History of Present Illness: The patient is a 63 year old male, with a significant past medical history of spinal stenosis (s/p C3-C4 anterior cervical discectomy and instrumented fusion on 02/05), HLD, COPD/Emphysema, Stage III CKD, Tourette's syndrome, diverticulosis, and BPH, who presents to the emergency department with neck swelling. As per patient, he recently had C3-C4 anterior cervical discectomy and instrumented fusion on 4 days ago (02/05) and was discharged the following day. Patient was evaluated at [facility] and followed up with his surgeon Dr. Baer earlier today at which time he was advised to report to the ED for admission for surgery secondary to a hematoma this afternoon. Patient endorses voice changes since his surgery but, denies any changes in voice throughout the course of the past 4 days. He denies any recent fevers, chills, headache or dizziness. He denies any recent nausea, vomiting, diarrhea or constipation. He denies any recent chest pain or shortness of breath. He denies any recent dysuria, frequency, urgency or hematuria. Allergies: NKDA Primary Care Physician: Dr. Stock-[facility] - Current Medication List Current Medications: Active Medications Albuterol Sulfate (Ventolin 0.083% Nebulizer Soln -) 1 amp NEB Q4H PRN PRN Reason: SHORT OF BREATH/WHEEZING Dexamethasone Sodium Phosphate (Decadron Injection -) 10 mg IVPUSH Q8H-IV [facility] Last Admin: 02/13/19 11:10 Dose: 10 mg Docusate Sodium (Colace -) 100 mg PO BID [facility] Last Admin: 02/13/19 10:18 Dose: 100 mg Hydromorphone HCl (Dilaudid Vial -) 2 mg IVPB Q6H PRN PRN Reason: PAIN LEVEL 7 - 10 Ondansetron HCl (Zofran Injection) 4 mg IVPUSH Q6H PRN PRN Reason: NAUSEA AND/OR VOMITING Ondansetron HCl (Zofran Injection) 4 mg IVPUSH Q6H PRN PRN Reason: NAUSEA AND/OR VOMITING Oxycodone HCl (Roxicodone -) 15 mg PO Q4H PRN PRN Reason: PAIN LEVEL 7 - 10 Pantoprazole Sodium (Protonix Iv) 40 mg IVPUSH DAILY [facility] Last Admin: 02/13/19 11:10 Dose: 40 mg Polyethylene Glycol (Miralax (For Daily Use) -) 17 gm PO DAILY [facility] Last Admin: 02/13/19 10:18 Dose: 17 grams Senna (Senna -) 1 tab PO HS [facility] Last Admin: 02/12/19 23:44 Dose: 1 tab Simethicone (Mylicon -) 80 mg PO Q4H PRN PRN Reason: CONSTIPATION Last Admin: 02/12/19 23:44 Dose: 80 mg - Objective Vital Signs: Vital Signs Temperature 98.3 F 02/13/19 08:00 Pulse Rate 64 02/13/19 08:00 Respiratory Rate 18 02/13/19 09:00 Blood Pressure 159/101 H 02/13/19 08:00 O2 Sat by Pulse Oximetry (%) 96 02/13/19 09:00 Eyes: Yes: WNL, Conjunctiva Clear, EOM Intact HENT: Yes: WNL, Atraumatic, Normocephalic Neck: Yes: WNL, Supple, Trachea Midline Cardiovascular: Yes: WNL, Regular Rate and Rhythm Respiratory: Yes: WNL, Regular, CTA Bilaterally Gastrointestinal: Yes: WNL, Normal Bowel Sounds Genitourinary: Yes: WNL Musculoskeletal: Yes: WNL Extremities: Yes: WNL Edema: No Integumentary: Yes: WNL Neurological: Yes: WNL, Alert, Oriented ...Motor Strength: WNL Psychiatric: Yes: WNL Labs: CBC, BMP 02/13/19 06:30 02/13/19 06:30 INR, PTT INR 1.19 (0.83-1.09) H 02/09/19 05:40 Problem List - Problems (1) Hematoma of neck Code(s): S10.93XA - CONTUSION OF UNSPECIFIED PART OF NECK, INITIAL ENCOUNTER Qualifiers: Encounter type: initial encounter Qualified Code(s): S10.93XA - Contusion of unspecified part of neck, initial encounter (2) S/P cervical spinal fusion Code(s): Z98.1 - ARTHRODESIS STATUS (3) Spinal stenosis, cervical region Code(s): M48.02 - SPINAL STENOSIS, CERVICAL REGION (4) Status post spinal surgery Code(s): Z98.890 - OTHER SPECIFIED POSTPROCEDURAL STATES Assessment/Plan spinal stenosis (s/p C3-C4 anterior cervical discectomy and instrumented fusion on 02/05), HLD, COPD/Emphysema, Stage III CKD, Tourette's syndrome, diverticulosis, and BPH, stable s/p neck hematoma ecacuation. ECHO nl ef AR 4.1 cm Plan; cont present rx risk staratification e.g stress test as the outpatient. Keeep LDL below 100 dvt plx
--- NOTE | 2019-02-13 13:33 | PN ---
Addendum entered and electronically signed by Riri Moreira, RESIDENT 02/13/19 18 :25: note: will need stress test as outpt per cardio will also need low dose chest CT scanning per pulm Original Note: Progress Note (short form) - Note Progress Note: Hospitalist Medicine Pt in good spirits today. Trop peaked, trended down. No longer with chest pain, states it was gas. Vitals 02/13/19 02/13/19 08:00 09:00 Temperature 98.3 F Respiratory 18 Rate Blood Pressure 159/101 H O2 Sat by Pulse 96 Oximetry (%) Physical Exam general: pleasant. in NAD. HEENT: NCAT, PERRLA. uvula visualized neck: +with gauze, improved edema cardio: s1, s2 rrr. no r/m/g pulm: cta b/l. no accessory m usage abdomen: soft, obese, nontender, nondistended LE: 2+ pt pulses, no edema Laboratory Tests 02/12/19 02/12/19 02/13/19 15:00 21:00 03:15 WBC Hgb Hct Plt Count Sodium Potassium Chloride Carbon Dioxide BUN Creatinine Random Glucose Troponin I 0.45 H 0.35 H 0.28 H 02/13/19 02/13/19 06:30 06:30 WBC 19.3 H Hgb 13.4 Hct 39.8 Plt Count 318 Sodium 138 Potassium 4.5 Chloride 104 Carbon Dioxide 29 BUN 33.2 H Creatinine 1.1 Random Glucose 141 H Troponin I Microbiology 02/10/19 18:50 Neck Gram Stain - Final Soft tissue neck XR: +soft tissue air 02/10: CXR: ETT with tip well above sofia at level of clavicular heads. lungs clear. prominent mediastinum chest CT: mild fissural thickening of the short fissure projecting in the right upper lobe best seen on image 61. no other suspicious lung nodules are identified. no endobronchial lesions are seen. no infiltrates are seen. dilation of ascending aorta measuring 4.4cm. vascular calcifications present including the coronary. hyperdense cyst noted within the upper pole of the left kidney measuring 8.8mm. nonobstructing nephrolithiasis left kidney measuring 4mm. perinephric stranding, nonspecific. hiatal hernia is seen. Assessment/plan 63 y/o old M with a PMH spinal stenosis (s/p C3-C4 anterior cervical discectomy and instrumented fusion on 02/05), HLD, COPD/Emphysema, Stage III CKD, Tourette' s syndrome, diverticulosis, and BPH, who presented to the ED with neck swelling. Received hematoma evacuation x 2. Currently post-op day1. #Neck hematoma s/p recent C3-C4 ACDF sx x 2 PO day 3 -incentive spirometer -PT, OOB as tolerated -elevate HOB -dilaudid 2mg q6h PRN, bharat 15mg q4h PRN -sx will d/c drain in AM -c/w dexamethasone 10mg q8h -c/w miralax -c-collar PRN per sx -Sx: Dr. Baer #Leukocytosis -likely 2/2 sx. however r/o alternate cause -f/u chest CT : as above. nonobstructing stones, nonspecific perinephric stranding -c/t monitor fever curve , asymptomatic #Elevated troponin-resolving -may be 2/2 demand from sx -improving. no need to cont to trend, asymptomatic -Cardio: Dr. Erickson #COPD -currently not in exacerbation -c/w ventolin nebs PRN, anoro BID, asmanex - home inhaler is not formulary -NC 02 as needed -goal sat 88-92% #Stage 3 CKD -stable; monitor #Tourette's -c/w klonopin #F/E/N off IVF continue to follow lytes soft diet, advance as tolerated #PPX DVT: SCD's GI: protonix #Dispo anticipate d/c 24hrs once drain removed will need to send home on dexamethasone taper <Riri Moreira - Last Filed: 02/13/19 18:23> - Note Progress Note: Seen and examined; discussed at length with resident team and indicated consultants. Independently reviewed all murphy historical, PE, diagnostic, and imaging findings. Agree with above documentation and assessment and plan as documented by resident aside from as supplemented below. Denies further CP. No SOB. In good spirits. Seen in AM and en route to CT. No s/s mediatinitus but persistent leukocytosis. FU imaging and remove drain ( serosanguinous in tubing). Once cleared by sgy can be DC home. Pain is controlled. No c/o constipation or s/s SBO. He is eagerly awaiting DC. Pending further discussion with CV and sgy. 10 sys ROS done and negative aside from HPI VS labs imaging reviewed NAD, AAO resting in bed Trachea midline with overlying surgical dressing c/d/i with associated fullness underlying it but no acute bleeding. Drain in place with no abnormalities noted. NC AT EOMI PERRLA Wheezes throughout bilaterally but present air motion, w/ sym exp HR wnl +s1/2 NT ND +BS CN2-12 wnl, no progressive neuro sx Normal mood, appropriate behavior A/P: Presented with postoperative hematoma; today with chest pain and tachycardia with WBC to 19. Checking CT chest, repeating EKG, troponin -Chest pain (troponin downtrending. Due to intermediate pretest probability but other comprelling motivating forces for a type II NSTEMI can likely get stress testing as OP but of course will defer to CV) -NSTEMI (type I vs II; trend trop, EKG w/o acute changes, consult CV, no ASA at this point) -Postoperative hematoma s/p drainage (D/W sgy regarding drain removal; pain is controlled. No further issues.) -CKD-IV -Tourette's Disorder (c/w clonazepam) -Chronic neck pain s/p cervical discectomy (due to underlying cervical spinal stenosis, continue with current pain regimine and has home pain meds available as well). -COPD not in exacerbation Full Code <Servando Alonso - Last Filed: 02/14/19 02:06>
--- NOTE | 2019-02-13 13:34 | SURG ---
Surgery Catering Operations Manager Note Catering Operations Manager: Syl Glover PA-C Date of Service: 02/08/19 Diagnosis: Expanding hematoma anterior cervical spine. Procedure: 1. I&D anterior cervical spine. 2. Inspection of fusion mass I was present for the entirety of the operative procedure. For further detail, please refer to operative report. Visit type - Case Type Case Type: Scheduled - Emergency Emergency Visit: Yes ED Registration Date: 02/08/19 Care time: The patient presented to the Emergency Department on the above date and was hospitalized for further evaluation of their emergent condition. - New patient This patient is new to me today: Yes Date on this admission: 02/13/19
--- NOTE | 2019-02-13 15:39 | PN ---
Progress Note (short form) - Note Progress Note: Surgery POD #3 s/p I&D (hematoma evacuation) anterior cervical spine w/ inspection of fusion mass Patient seen and examined at bedside with no complaints. Patient states his pain is controlled and he is tolerating his diet. he denies any CP, SOB, N/V fever or chills. He had a BM yesterday. Vital Signs Temp 98.3 F 02/13/19 08:00 Pulse 64 02/13/19 08:00 Resp 18 02/13/19 09:00 BP 159/101 H 02/13/19 08:00 Pulse Ox 96 02/13/19 09:00 Intake & Output 02/12/19 02/13/19 02/13/19 23:59 11:59 23:59 Intake Total 330 1110 240 Output Total 965 1450 400 Balance -635 -340 -160 Weight 236 lb Intake: IV 30 10 left wrist #20 02/11 30 10 IVPB 800 Oral 300 300 240 Output: Drainage 15 DAVOL ANTERIOR NECK 15 Urine 950 1450 400 [place] 500 Void 950 950 400 Other: Voiding Method Toilet Toilet Toilet Bowel Movement No No No Weight Measurement Method Standing Scale CBC, BMP 02/13/19 06:30 02/13/19 06:30 Gen: A&Ox3, NAD Resp: Unlabored resp on RA Neck: trach midline. incision c/d/i with sutures in place. drain on suction minimal amount of drainage. no evidence of hematoma. LE: B/L LE compartments soft, supple and non-tender with +2 DP pulses. Problem List - Problems (1) Hematoma of neck Assessment/Plan: POD #3 evacuation of neck hematoma with elevated WBC's and afebrile with no signs of infection at site. -trend labs -d/c drain in AM -OOB and ambulate -Wear c-collar prn comfort -Pain management -Dressing changed on rounds -d/c planning for home -Above plan discussed with Dr. Srinivasa Baer and agrees. Code(s): S10.93XA - CONTUSION OF UNSPECIFIED PART OF NECK, INITIAL ENCOUNTER Qualifiers: Encounter type: initial encounter Qualified Code(s): S10.93XA - Contusion of unspecified part of neck, initial encounter
[2019-02-13] MEDS ORDERED: SENNOSIDES 8.6MG TABLET (FP) PO SCH (22:00)
[2019-02-13] MEDS: SENNOSIDES 8.6MG TABLET (FP) PO SCH (23:30)
[2019-02-14] MEDS: DEXAMETHASONE SOD PHOSPHATE 10 MG/1 ML VIAL IVPUSH SCH (01:22)
[2019-02-14 05:44] VITALS: PULSE 54; TEMP 98.1
[2019-02-14 07:01] LABS: BASO % 0.2 % (0-2.0); EOS % 0.3 % (0-4.5); HEMATOCRIT 40.2 % (35.4-49); HEMOGLOBIN 13.6 GM/dL (11.7-16.9); LYMPH % 5.4 % (8-40); MCH 30.9 pg (25.7-33.7); MCHC 33.9 g/dl (32.0-35.9); MEAN CELL VOLUME 91.2 fl (80-96); MEAN PLT VOLUME 7.9 fl (7.5-11.1); MONO % 3.8 % (3.8-10.2); NEUT % 90.3 % (42.8-82.8); PLATELET COUNT 316 K/MM3 (134-434); RDW 12.9 % (11.9-15.9); WHITE BLOOD COUNT 15.1 K/mm3 (4.0-10.0)
[2019-02-14 07:33] LABS: CALCIUM 8.4 mg/dL (8.5-10.1); CREATININE 1.1 mg/dL (0.55-1.3); MAGNESIUM 2.6 mg/dL (1.8-2.4); PHOSPHOROUS 3.2 mg/dL (2.5-4.9); POTASSIUM 4.5 mmol/L (3.5-5.1)
[2019-02-14] MEDS ORDERED: DEXAMETHASONE SOD PHOSPHATE 10 MG/1 ML VIAL IVPUSH SCH (10:00)
[2019-02-14] MEDS: POLYETHYLENE GLYCOL 3350 119 GM BTL PO SCH (10:21)
[2019-02-14] MEDS: PANTOPRAZOLE SODIUM 40 MG VIAL IVPUSH SCH (10:21)
[2019-02-14] MEDS: DOCUSATE SODIUM 100 MG CAPSULE (FP) PO SCH (10:22)
--- NOTE | 2019-02-14 10:31 | PN ---
Progress Note, Physician History of Present Illness: pulmonary alert,comfortable,no distress,-sob,-cp - Current Medication List Current Medications: Active Medications Albuterol Sulfate (Ventolin 0.083% Nebulizer Soln -) 1 amp NEB Q4H PRN PRN Reason: SHORT OF BREATH/WHEEZING Dexamethasone Sodium Phosphate (Decadron Injection -) 10 mg IVPUSH BID [facility] Last Admin: 02/14/19 10:21 Dose: 10 mg Docusate Sodium (Colace -) 100 mg PO BID [facility] Last Admin: 02/14/19 10:22 Dose: Not Given Hydromorphone HCl (Dilaudid Vial -) 2 mg IVPB Q6H PRN PRN Reason: PAIN LEVEL 7 - 10 Ondansetron HCl (Zofran Injection) 4 mg IVPUSH Q6H PRN PRN Reason: NAUSEA AND/OR VOMITING Ondansetron HCl (Zofran Injection) 4 mg IVPUSH Q6H PRN PRN Reason: NAUSEA AND/OR VOMITING Oxycodone HCl (Roxicodone -) 15 mg PO Q4H PRN PRN Reason: PAIN LEVEL 7 - 10 Pantoprazole Sodium (Protonix Iv) 40 mg IVPUSH DAILY [facility] Last Admin: 02/14/19 10:21 Dose: 40 mg Polyethylene Glycol (Miralax (For Daily Use) -) 17 gm PO DAILY [facility] Last Admin: 02/14/19 10:21 Dose: Not Given Senna (Senna -) 1 tab PO HS [facility] Last Admin: 02/13/19 23:30 Dose: Not Given Simethicone (Mylicon -) 80 mg PO Q4H PRN PRN Reason: CONSTIPATION Last Admin: 02/12/19 23:44 Dose: 80 mg - Objective Vital Signs: Vital Signs Temperature 98.1 F 02/14/19 05:44 Pulse Rate 54 L 02/14/19 05:44 Respiratory Rate 20 02/14/19 05:44 Blood Pressure 138/92 02/14/19 05:44 O2 Sat by Pulse Oximetry (%) 97 02/13/19 20:36 Constitutional: Yes: Well Nourished, Calm Eyes: Yes: WNL HENT: Yes: WNL Neck: Yes: WNL Cardiovascular: Yes: Regular Rate and Rhythm, S1, S2 Respiratory: Yes: CTA Bilaterally Gastrointestinal: Yes: Normal Bowel Sounds, Soft Extremities: Yes: WNL Edema: No Labs: CBC, BMP 02/14/19 06:40 02/14/19 06:40 INR, PTT INR 1.19 (0.83-1.09) H 02/09/19 05:40 Problem List - Problems (1) COPD (chronic obstructive pulmonary disease) Code(s): J44.9 - CHRONIC OBSTRUCTIVE PULMONARY DISEASE, UNSPECIFIED (2) Hematoma of neck Code(s): S10.93XA - CONTUSION OF UNSPECIFIED PART OF NECK, INITIAL ENCOUNTER Qualifiers: Encounter type: initial encounter Qualified Code(s): S10.93XA - Contusion of unspecified part of neck, initial encounter (3) S/P cervical spinal fusion Code(s): Z98.1 - ARTHRODESIS STATUS (4) Status post spinal surgery Code(s): Z98.890 - OTHER SPECIFIED POSTPROCEDURAL STATES (5) Tobacco abuse Code(s): Z72.0 - TOBACCO USE (6) Chronic kidney disease (CKD) Code(s): N18.9 - CHRONIC KIDNEY DISEASE, UNSPECIFIED Assessment/Plan ASSESSMENT AND PLAN: s/p Hematoma Evacuation x 2 Cervical Spinal Stenosis COPD/Emphysema Stage III CKD Tourette's syndrome Diverticulosis Hyperlipidemia BPH - pain control - incentive spirometry - monitor drain output - on steroids per surgery - O2 to keep SpO2 >90% - PO as tolerated - DVT prophylaxis - Low dose chest ct as outpatient for lung cancer screening DR HESTER
--- NOTE | 2019-02-14 10:44 | PN ---
Progress Note, Physician History of Present Illness: The patient is a 63 year old male, with a significant past medical history of spinal stenosis (s/p C3-C4 anterior cervical discectomy and instrumented fusion on 02/05), HLD, COPD/Emphysema, Stage III CKD, Tourette's syndrome, diverticulosis, and BPH, who presents to the emergency department with neck swelling. As per patient, he recently had C3-C4 anterior cervical discectomy and instrumented fusion on 4 days ago (02/05) and was discharged the following day. Patient was evaluated at [facility] and followed up with his surgeon Dr. Baer earlier today at which time he was advised to report to the ED for admission for surgery secondary to a hematoma this afternoon. Patient endorses voice changes since his surgery but, denies any changes in voice throughout the course of the past 4 days. He denies any recent fevers, chills, headache or dizziness. He denies any recent nausea, vomiting, diarrhea or constipation. He denies any recent chest pain or shortness of breath. He denies any recent dysuria, frequency, urgency or hematuria. Allergies: NKDA Primary Care Physician: Dr. Stock-[facility] - Current Medication List Current Medications: Active Medications Albuterol Sulfate (Ventolin 0.083% Nebulizer Soln -) 1 amp NEB Q4H PRN PRN Reason: SHORT OF BREATH/WHEEZING Dexamethasone Sodium Phosphate (Decadron Injection -) 10 mg IVPUSH BID [facility] Last Admin: 02/14/19 10:21 Dose: 10 mg Docusate Sodium (Colace -) 100 mg PO BID [facility] Last Admin: 02/14/19 10:22 Dose: Not Given Hydromorphone HCl (Dilaudid Vial -) 2 mg IVPB Q6H PRN PRN Reason: PAIN LEVEL 7 - 10 Ondansetron HCl (Zofran Injection) 4 mg IVPUSH Q6H PRN PRN Reason: NAUSEA AND/OR VOMITING Ondansetron HCl (Zofran Injection) 4 mg IVPUSH Q6H PRN PRN Reason: NAUSEA AND/OR VOMITING Oxycodone HCl (Roxicodone -) 15 mg PO Q4H PRN PRN Reason: PAIN LEVEL 7 - 10 Pantoprazole Sodium (Protonix Iv) 40 mg IVPUSH DAILY [facility] Last Admin: 02/14/19 10:21 Dose: 40 mg Polyethylene Glycol (Miralax (For Daily Use) -) 17 gm PO DAILY [facility] Last Admin: 02/14/19 10:21 Dose: Not Given Senna (Senna -) 1 tab PO HS [facility] Last Admin: 02/13/19 23:30 Dose: Not Given Simethicone (Mylicon -) 80 mg PO Q4H PRN PRN Reason: CONSTIPATION Last Admin: 02/12/19 23:44 Dose: 80 mg - Objective Vital Signs: Vital Signs Temperature 98.1 F 02/14/19 05:44 Pulse Rate 54 L 02/14/19 05:44 Respiratory Rate 20 02/14/19 05:44 Blood Pressure 138/92 02/14/19 05:44 O2 Sat by Pulse Oximetry (%) 97 02/13/19 20:36 Eyes: Yes: WNL, Conjunctiva Clear, EOM Intact HENT: Yes: WNL, Atraumatic, Normocephalic Neck: Yes: WNL, Supple, Trachea Midline Cardiovascular: Yes: WNL, Regular Rate and Rhythm Respiratory: Yes: WNL, Regular, CTA Bilaterally Gastrointestinal: Yes: WNL, Normal Bowel Sounds Genitourinary: Yes: WNL Musculoskeletal: Yes: WNL Extremities: Yes: WNL Edema: No Integumentary: Yes: WNL Neurological: Yes: WNL, Alert, Oriented ...Motor Strength: WNL Psychiatric: Yes: WNL Labs: CBC, BMP 02/14/19 06:40 02/14/19 06:40 INR, PTT INR 1.19 (0.83-1.09) H 02/09/19 05:40 Problem List - Problems (1) Hematoma of neck Code(s): S10.93XA - CONTUSION OF UNSPECIFIED PART OF NECK, INITIAL ENCOUNTER Qualifiers: Encounter type: initial encounter Qualified Code(s): S10.93XA - Contusion of unspecified part of neck, initial encounter (2) S/P cervical spinal fusion Code(s): Z98.1 - ARTHRODESIS STATUS (3) Spinal stenosis, cervical region Code(s): M48.02 - SPINAL STENOSIS, CERVICAL REGION (4) Status post spinal surgery Code(s): Z98.890 - OTHER SPECIFIED POSTPROCEDURAL STATES Assessment/Plan spinal stenosis (s/p C3-C4 anterior cervical discectomy and instrumented fusion on 02/05), HLD, COPD/Emphysema, Stage III CKD, Tourette's syndrome, diverticulosis, and BPH, stable s/p neck hematoma ecacuation. ECHO nl ef AR 4.1 cm Plan; cont present rx risk staratification e.g stress test as the outpatient. Keeep LDL below 100 dvt plx
--- NOTE | 2019-02-14 11:01 | PN ---
Progress Note (short form) - Note Progress Note: POD 4, s/p Incision & Drainage/Primary closure neck incision, POD 6 s/p I&D anterior cervical spine, Inspection of fusion mass for expanding hematoma anterior cervical spine, s/p C3-C4 ACDF on 02/05 Pt seen and examined. reports he is doing well and eager to go home. Has been oob ambulating, voiding without issue. Tolerating PO. Pain controlled with current regimen. denies cp/sob, n/v/d, motor/sensory deficits. Vital Signs Temp 98.1 F 02/14/19 05:44 Pulse 54 L 02/14/19 05:44 Resp 20 02/14/19 05:44 BP 138/92 02/14/19 05:44 Pulse Ox 97 02/13/19 20:36 Intake & Output 02/13/19 02/13/19 02/14/19 11:59 23:59 11:59 Intake Total 1110 750 Output Total 1450 400 Balance -340 350 Weight 236 lb 230 lb 12.8 oz Intake: IV 10 10 left wrist #20 02/11 10 10 IVPB 800 Oral 300 740 Output: Urine 1450 400 [place] 500 Void 950 400 Other: Voiding Method Toilet Toilet # Unmeasured Voids Void 2 Bowel Movement No Yes # Bowel Movements 1 Weight Measurement Method Standing Scale Standing Scale CBC, BMP 02/14/19 06:40 02/14/19 06:40 Gen: awake, alert, nad Neck: Dressing changed, incision c/d/i, no erythema or drainage, no surrounding ecchymosis, no palpable hematoma noted. [place] in place with minimal serosanguinous drainage in reservoir. Drain removed, tip intact. pt tolerated well. New 4x4 and tegaderms applied. 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 B/L biceps/triceps 5/5. SILT b/l ues A/P: 63 y/o M w/ PMHx spinal stenosis, HLD, COPD, CKD stage 3, Tourette's syndrome, diverticulosis, and BPH, now POD 4, s/p Incision & Drainage/Primary closure neck incision, POD 6 s/p I&D anterior cervical spine, Inspection of fusion mass for expanding hematoma anterior cervical spine, s/p C3-C4 ACDF on . Afebrile, VSS Neck incision benign no further evidence of hematoma formation Drain removed H/H stable No recorded output for drain x 2 days, scant amount in reservoir at time of removal -Pt planned for d/c today, all questions answered d/w attendings Dr Johnson
[2019-02-14 11:17] LABS: ANISOCYTOSIS 0; MACROCYTOSIS 0; PLATELET ESTIMATE NORMAL
[2019-02-14] MEDS ORDERED: traMADol HCL 50 MG TABLET PO ONE (11:35)
[2019-02-14 11:59] VITALS: BP 135/77
--- NOTE | 2019-02-14 17:42 | DS ---
Physical Exam: SUBJECTIVE: Patient seen and examined at bedside. In good spirits, with newspaper and bathrobe on. Ready to go home. OBJECTIVE: Vital Signs Period Temp Pulse Resp BP Sys/[place] Pulse Ox Last 24 Hr 97.9 F-98.1 F 54-72 20-20 135-147/77-92 97-97 Physical Exam general: pleasant. in NAD. HEENT: NCAT, PERRLA. uvula visualized neck: +with gauze, improved edema cardio: s1, s2 rrr. no r/m/g pulm: cta b/l. no accessory m usage abdomen: soft, obese, nontender, nondistended LE: 2+ pt pulses, no edema LABS Laboratory Results - last 24 hr 02/14/19 02/14/19 06:40 06:40 WBC 15.1 H RBC 4.40 Hgb 13.6 Hct 40.2 MCV 91.2 MCH 30.9 MCHC 33.9 RDW 12.9 Plt Count 316 MPV 7.9 Absolute Neuts (auto) 13.6 H Neutrophils % 90.3 H Neutrophils % (Manual) 83.5 H Band Neutrophils % 0.0 Lymphocytes % 5.4 L D Lymphocytes % (Manual) 3.3 L D Monocytes % 3.8 Monocytes % (Manual) 6 D Eosinophils % 0.3 D Eosinophils % (Manual) 0.0 Basophils % 0.2 Basophils % (Manual) 0.0 Myelocytes % (Man) 4 H D Promyelocytes % (Man) 0 Blast Cells % (Manual) 0 Nucleated RBC % 0 Metamyelocytes 0 Hypochromia 0 Platelet Estimate Normal Polychromasia 0 Anisocytosis 0 Microcytosis 0 Macrocytosis 0 Sodium 139 Potassium 4.5 Chloride 106 Carbon Dioxide 29 Anion Gap 4 L BUN 29.0 H Creatinine 1.1 Est GFR (CKD-EPI)AfAm 81.22 Est GFR (CKD-EPI)NonAf 70.07 Random Glucose 129 H Calcium 8.4 L Phosphorus 3.2 Magnesium 2.6 H Troponin 02/12/19 02/12/19 02/13/19 15:00 21:00 03:15 Troponin I 0.45 H 0.35 H 0.28 H Microbiology 02/10/19 18:50 Neck Gram Stain - Final Imaging 02/08 Soft tissue neck XR: +soft tissue air 02/10: CXR: ETT with tip well above sofia at level of clavicular heads. lungs clear. prominent mediastinum 02/13: chest CT: mild fissural thickening of the short fissure projecting in the right upper lobe best seen on image 61. no other suspicious lung nodules are identified. no endobronchial lesions are seen. no infiltrates are seen. dilation of ascending aorta measuring 4.4cm. vascular calcifications present including the coronary. hyperdense cyst noted within the upper pole of the left kidney measuring 8.8mm. nonobstructing nephrolithiasis left kidney measuring 4mm. perinephric stranding, nonspecific. hiatal hernia is seen. HOSPITAL COURSE: Date of Admission:02/08/19 Date of Discharge: 02/14/19 Admission diagnosis: neck hematoma 63 y/o old M with a PMH spinal stenosis (s/p C3-C4 anterior cervical discectomy and instrumented fusion on 02/05), HLD, COPD/Emphysema, Stage III CKD, Tourette' s syndrome, diverticulosis, and BPH, who presented to the ED with neck swelling. Received hematoma evacuation x 2. Was monitored initially in the ICU, then on the floor as follows: #Neck hematoma s/p recent C3-C4 ACDF sx x 2 -incentive spirometer -PT, OOB as tolerated -elevate HOB -dilaudid 2mg q6h PRN, bharat 15mg q4h PRN pain control in hospital. sent with surgical recommendation to c/w percocet q6h PRN for pain -drain was d/c on day of discharge -was maintained on decadron in hospital. sent home w/ decadron month long ( gradual taper) recommended by [facility] pharmacy -c-collar PRN per sx -Sx: Dr. Baer #Elevated troponin-resolved -likely was 2/2 demand ischemia -pt c/o bloating and gas, which resolved -improved. no need to cont to trend, asymptomatic -was seen by Cardio: Dr. Erickson and recommended outpatient stress test #COPD -was not in exacerbation during visit -to c/w home inhalers on d/c -will need low dose chest CT scan per pul -ME 02 as needed -goal sat 88-92% Minutes to complete discharge: 55 Discharge Summary Problems reviewed: Yes Reason For Visit: HEMATOMA OF NECK Condition: Stable - Instructions Diet, Activity, Other Instructions: You were in the hospital because you had blood drained from your neck twice. You were monitored by the surgical and primary medical teams. You were also seen by a global sales director and lung doctor. You improved and are being sent home. Medications 1. You have been started on a steroid taper (decadron). This is because your throat felt as if it was closing while you were in the hospital. Please make sure to take the following taper, starting this evening: -Decadron 4mg twice a day x 7 days starting tonight(take the first dose) (-02/20) -Decadron 2mg twice a day x 7 days (02/21-02/27) -Decadron 1mg twice a day x 7 days (02/28-03/06) -Decadron 1 mg once a day x 7 days to finish taper (03/07-03/13) This is very important so your throat does not close up. It is also important to slowly do this taper. You should never stop steroids immediately, this can harm your adrenal glands. 2. While you are on a steroid, you must take an acid suppressant for your stomach: please take protonix 1 pill daily while on the above steroid taper. 3. You can use your percocet (from home) for pain every 6 hours as needed, per the surgery team. 3. You may resume your other home medications Testing 1. You will need a stress test with a global sales director as an outpatient, since you had chest pain while here. 2. You will also need a low dose chest CT scan with a lung doctor. This is for lung screening. Please follow up with the following doctors -Dr. Baer - 1 week -Your primary care doctor - this week -Dr. Orona, the lung doctor who saw you in the hospital - 1 week -Dr. Erickson, the heart doctor who saw you in the hospital for a stress test - 1 week. Post Operative Instructions Physical Activity Resume your normal everyday activity as tolerated. No heavy lifting or exercise until seen by your surgeon. You may walk unlimited amounts and climb stairs. You may resume driving the car when you feel safe and comfortable behind the wheel and you are no longer wearing your brace. Do not operate a vehicle while taking narcotic medication. Wound Care Keep your incision clean, dry and covered at all times. Apply an occlusive dressing (Saran wrap or Tegaderm) when showering to avoid getting your incision wet. Do not submerge incision or apply ointments or creams. Diet There are no dietary restrictions. Eat healthy, high-fiber foods. Drink 6-8 glasses of liquid each day. This will assist in keeping your bowels regular. Pain Management You may take Tylenol or acetaminophen. Any pain prescription medication ordered should be taken as prescribed for moderate to severe pain. Avoid any ibuprofen (Motrin, Advil, Aleve, Toradol, etc) for 3 months unless otherwise discussed with your surgeon. Call Dr Baer for any of the following: Severe pain not relieved by medication Fever of 101 or higher Excessive bleeding or drainage on dressing Any chest pain or shortness of breath, seek Emergency Care. Call the office to confirm a post-operative appointment for 2-3 weeks post-op Referrals: Dr. lester [Other] - 02/12/19 Delmer Orona MD [Staff Physician] - 1 Week Angel Erickson MD [Staff Physician] - 1 Week Jeffrey Baer MD [Staff Physician] - 02/15/19 Disposition: HOME - Home Medications Comprehensive Discharge Medication List: Ambulatory Orders Albuterol Sulfate Inhaler - [Ventolin HFA Inhaler -] 1 puff IH PRN 02/02/19 Atorvastatin Ca [Lipitor] 10 mg PO HS 02/02/19 Fluticasone/Umeclidin/Vilanter [Trelegy Ellipta 100-62.5-25] 1 each IH DAILY Clonazepam [Klonopin] 1 mg PO HS 02/05/19 Dexamethasone [Decadron -] 1 mg PO BID #14 tablet 02/14/19 Dexamethasone [Decadron] 1 mg PO DAILY #7 tablet 02/14/19 Dexamethasone [Decadron] 2 mg PO BID #14 tablet 02/14/19 Dexamethasone [Decadron] 4 mg PO BID #14 tablet 02/14/19 Pantoprazole Sodium [Protonix] 40 mg PO DAILY #30 tablet. 02/14/19 This patient is new to me today: No Emergency Visit: No Critical Care patient: No - Discharge Referral Referred to [facility] Med P.C.: No ATTENDING PHYSICIAN STATEMENT I saw and evaluated the patient. I reviewed the resident's note and discussed the case with the resident. I agree with the resident's findings and plan as documented. SUBJECTIVE: OBJECTIVE: ASSESSMENT AND PLAN:
== END 2019-02-14 14:50 | disposition home or self-care (01) | DRG 982 ==
LOC: JER 13:32 → JERBED 14:35 → OBSVTOIN 15:25 → JICU 18:34 → J8W 02-09 16:48 → JICU 02-10 20:37 → J4W 02-12 17:54
PROVIDERS: ADMIT Internal Medicine; ATTEND Internal Medicine
PROC: 3E10X8Z Irrigation of Skin and Mucous Membranes using Irrigating Substance (ICD-10-PCS; 2019-02-08)
PROC: 0P9 Upper Bones, Drainage (ICD-10-PCS; principal; 2019-02-08 15:30)
PROC: 0R910ZZ Drainage of Cervical Vertebral Joint, Open Approach (ICD-10-PCS; 2019-02-10)
PROC: 0CHY7BZ Insertion of Airway into Mouth and Throat, Via Natural or Artificial Opening (ICD-10-PCS; 2019-02-10)
PROC: 5A1945Z Respiratory Ventilation, 24-96 Consecutive Hours (ICD-10-PCS; 2019-02-10)
DX: G97.61 Postprocedural hematoma of a nervous system organ or structure following a nervous system procedure (principal); I24.8 Other forms of acute ischemic heart disease; S10.93XA Contusion of unspecified part of neck, initial encounter; F95.2 Tourette's disorder; R06.89 Other abnormalities of breathing; N40.0 Benign prostatic hyperplasia without lower urinary tract symptoms; K57.90 Diverticulosis of intestine, part unspecified, without perforation or abscess without bleeding; E78.5 Hyperlipidemia, unspecified; N18.3 Chronic kidney disease, stage 3 (moderate); J43.9 Emphysema, unspecified; M48.02 Spinal stenosis, cervical region; Z98.890 Other specified postprocedural states; Z98.1 Arthrodesis status; Y83.8 Other surgical procedures as the cause of abnormal reaction of the patient, or of later complication, without mention of misadventure at the time of the procedure; Z72.0 Tobacco use
CPT/HCPCS: 36415; 70360-TC-FY; 71045-TC-FY; 71250-TC; 80048; 80053; 80061; 82550; 82553; 83036; 83721; 83735; 84100; 84443; 84484; 85025; 85027; 85610; 85730; 86850; 86900; 86901; 87070; 87205; 93005; 93010; 93306-TC; 94002; 94640; 94760; 97116-GP; 97162-GP; 99283-25; G0378; J0131; J1100; J7030